=== PATIENT | female | born 1950 | race Caucasian/White ===

== ENCOUNTER 2017-12-14 18:27 | Inpatient (IN) ==
--- NOTE | 2017-12-14 18:50 | Emergency Department Note ---
Disposition Clinical Impression: Numbness on right side Disposition: Admitted As Inpatient Condition: Good Time of Disposition: 20:46 Neuro HPI - General Chief Complaint: ED Neuro Symptoms/Deficit Stated Complaint: "leaning to R side cant straighten up" Time Seen by Provider: 12/14/17 18:42 Source: patient Limitations: no limitations Nursing Notes Reviewed: Yes Vital Signs Reviewed: Yes - History of Present Illness HPI Narrative: 67-year-old female history of hypertension, diabetes presents the emergency department with for concern of right leg weakness and numbness. Patient arrived roughly at 1900. reports around 1730 patient attempted to ambulate and appeared to lean towards the right. Patient was complaining of some numbness on her right side. The last well-known reported by the was roughly 1430 when she was seen ambulating normally. The denies any dysarthria, slurred speech, facial paralysis or weakness. Patient did has no history of prior stroke. Patient denies any other associated symptoms such as headache, confusion, chest pain. Denies any previous fall. Denies any recent travel or rashes. Denies any blood in the stool, black tarry stool, hematemesis or hemoptysis. She patient has a pacemaker and follows with Dr. [place] cardiology. Onset of Symptoms Date: 12/14/17 Onset of Symptoms Time: 14:00 Symptom Onset Unknown: No Timing confirmed by: spouse Location: right leg History of same: No Quality: numbness Symptoms Improving: Yes On Anticoagulants: Yes (WARFARIN FOR AFIB) - Related Data Home Medications: Home Medications Medication Instructions Recorded Confirmed Albuterol Sulfate [Albuterol 2 puff IH Q4H PRN 12/14/17 12/14/17 Inhaler] Clopidogrel [Plavix] 75 mg PO DAILY 12/14/17 12/14/17 Glimepiride [Amaryl] 4 mg PO BID 12/14/17 12/14/17 Metoprolol [Lopressor] 25 mg PO BID 12/14/17 12/14/17 Omeprazole [PriLOSEC] 20 mg PO DAILY 12/14/17 12/14/17 Quetiapine Fumarate [Seroquel] 300 mg PO HS 12/14/17 12/14/17 Simvastatin [Zocor] 20 mg PO HS 12/14/17 12/14/17 SitaGLIPtin [Januvia] 100 mg PO DAILY 12/14/17 12/14/17 Trazodone HCl 100 mg PO HS 12/14/17 12/14/17 Trospium Chloride [Trospium 20 mg PO DAILY 12/14/17 12/14/17 Chloride] cloNIDine HCl [CloNIDine HCl] 0.1 mg PO DAILY 12/14/17 12/14/17 metFORMIN [Glucophage] 1,000 mg PO QAM 12/14/17 12/14/17 metFORMIN [Glucophage] 1,500 mg PO QPM 12/14/17 12/14/17 risperiDONE [Risperidone] 4 mg PO DAILY 12/14/17 12/14/17 Allergies/Adverse Reactions: Allergies Allergy/AdvReac Type Severity Reaction Status Date / Time aspirin Allergy See Verified 12/14/17 20:04 Comments codeine Allergy See Verified 12/14/17 20:04 Comments Penicillins Allergy Vomiting Verified 12/14/17 20:04 All systems ED: reviewed and negative except as stated. Review of Systems: As Per HPI Constitutional: Reports: weakness. Denies: fever, chills ENT ED: Denies: congestion Cardiovascular: Denies: chest pain, palpitations Respiratory: Denies: cough Gastrointestinal: Denies: abdominal pain, nausea, vomiting Genitourinary: Denies: urgency, dysuria Musculoskeletal: Denies: back pain, neck pain Integumentary: Denies: rash, abrasion Neurological: Reports: abnormal gait. Denies: headache, weakness Psychiatric: Denies: anxiety, depression Hematological/Lymphatic: Denies: easy bleeding Past Medical History - Past Medical History Attestation: Yes The following information was validated with the patient. Source: patient, obtained from family Medical history: Reports: diabetes, hyperlipidemia, hypertension Psychiatric history: Reports: no psych history - Social History Smoking Status: Never smoker Smokeless Tobacco Status: No Alcohol use: Reports: none Drug use: Reports: none Physical Exam - General Limitations: no limitations General appearance: alert, in no apparent distress - Head Head exam: atraumatic, normocephalic, normal inspection - Eye Eye exam: Present: normal appearance, PERRL, EOMI - ENT ENT exam: normal exam, normal oropharynx, mucous membranes moist - Neck Neck exam: Present: normal inspection, full ROM, trachea midline - Chest Chest inspection: Present: normal inspection, symmetric chest wall rise - Respiratory Respiratory exam: Present: normal lung sounds bilaterally. Absent: respiratory distress, wheezes - Cardiovascular Cardiovascular exam: Present: regular rate, normal rhythm, normal heart sounds - Abdominal Exam Abdominal exam: Present: soft, Non-Tender. Absent: tenderness, distention, guarding, rebound, rigidity - Extremities Exam Extremities exam: Present: normal inspection, full ROM, normal capillary refill. Absent: tenderness, pedal edema - Expanded Lower Extremity Exam Hip/Pelvis exam: Present: normal inspection, full ROM Upper leg exam: Present: normal inspection, full ROM Knee exam: Present: normal inspection, full ROM Lower leg exam: Present: normal inspection, full ROM Ankle exam: Present: normal inspection, full ROM Foot/toe exam: Present: normal inspection, full ROM Neurovascular/Tendon exam: Absent: motor deficit, sensory deficit, tendon deficit - Back Exam Back exam: Present: normal inspection, full ROM. Absent: tenderness, vertebral tenderness - Neurological Exam Neurological exam: Present: alert, oriented X3, CN II-XII intact - Expanded Neurological Exam Patient oriented to: Present: person, place, time Cranial nerves: EOM function (II, III, IV, ): Normal, facial sensation (V): Normal, facial palsy (VII): Normal, gag reflex (IX): Normal, spinal accessory function (XI): Normal, tongue deviation (XII): Normal Cerebellar function: heel to brian: Normal Motor strength - LUE: 5/5 Motor strength - RUE: 5/5 Motor strength - LLE: 5/5 Motor strength - RLE: 5/5 Upper motor neuron exam: luciana neglect: Absent bilaterally, pronator drift: Absent bilaterally Sensory exam upper extremity: light touch: Normal Sensory exam lower extremity: light touch: Normal - Psychiatric Psychiatric exam: Present: normal affect, normal mood - Skin Skin exam: Present: warm, dry, intact, normal color. Absent: rash, cyanosis, diaphoresis Course Course Narrative: 67-year-old female presents with right sided numbness and reported weakness. Patient was unable to ambulate like she normally does. Initially was told by last well-known 1730 which was within 3 hours of arrival. At that time stroke alert was initiated and patient was immediately sent to CT scanner for imaging. Further history from the states last well-known was roughly 1430. On arrival back to the emergency department a full neural examination was performed on the patient. She had sensory deficit on the right side but no motor. No drift. Patient denies garbled or slurred speech. NIH was 1. Labs in further imaging pending. - Reevaluation(s) Reevaluation #1: Given the patient's comorbidities of hypertension diabetes and atrial fibrillation on Coumadin will admit the patient for further TIA CVA workup. Patient reports nausea with aspirin will give her full dose aspirin with Zofran and continue to monitor. Patient accepted for admission. Impression is right side numbness. Review for labs she has some baseline anemia. She denies any active bleeding such as bloody stool, lack tarry stool, hematemesis or hemoptysis. Troponin less than 0.03. Her INR is 1.2. Time: 20:48 - Consultations Consultation #1: [facility] called regarding the CT of the head. No acute hemorrhagic stroke. Time: 19:03 Consultation #2: Spoke with on-call hospitalist gil Nathan to admit for TIA/CVA workup with right numbness. No further orders at this time Time: 20:44 Vital Signs Temperature 98.2 F 12/14/17 18:29 Pulse Rate 94 12/14/17 18:29 Respiratory Rate 18 12/14/17 18:29 Blood Pressure 105/66 12/14/17 18:29 O2 Sat by Pulse Oximetry 93 12/14/17 18:29 Temperature 98.2 F 12/14/17 18:29 Pulse Rate 94 12/14/17 18:29 Respiratory Rate 14 12/14/17 22:24 Blood Pressure 138/76 12/14/17 22:24 O2 Sat by Pulse Oximetry 93 12/14/17 18:29 Oxygen Delivery Oxygen Delivery Room Air Neuro Symptoms/Deficit - MDM Narrative Medical decision making narrative: Patient was discussed with my attending physician who agrees with ED management and final disposition. They independently evaluated the patient. Please refer to their attestation to this encounter for additional information. This note was generated by giddy voice recognition software and as a result grammatical or spelling errors may occur using this program. - Medical Records Medical records reviewed: Yes I reviewed the patient's medical records. - Lab Data Lab results reviewed: Yes I reviewed the patient's lab results. Result diagrams: 12/14/17 18:31 12/14/17 18:31 Lab Results 12/14/17 12/14/1712/14/18 Range/Units 18:31 18:31 18:31 WBC 4.6 (4.3-11.1) K/mcL RBC 3.60 L (3.82-4.97) M/mcL Hgb 9.8 L (11.5-15.4) g/dL Hct 32.6 L (35.3-44.9) % MCV 90.6 (83.0-100.0) fL MCH 27.2 L (28.0-33.3) pg MCHC 30.1 L (31.6-35.5) g/dL RDW 15.9 H (11.5-14.5) % Plt Count 137 L (140-400) K/mcL MPV 10.6 (9.4-12.4) fL Immature Gran % 0.2 (0-4) % Seg Neutrophils % 67.0 % Lymphocytes % 20.9 % Monocytes % 9.7 % Eosinophils % 1.5 % Basophils % 0.7 % Neutrophils # 3.1 (1.6-8.9) K/mcL Lymphocytes # 1.0 (0.6-4.6) K/mcL Monocytes # 0.4 (0.0-1.3) K/mcL Eosinophils # 0.1 (0.0-0.6) K/mcL Basophils # 0.0 (0.0-0.2) K/mcL Nucleated RBCs/100 WBC 0.4 H (0) /100 WBC PT 13.1 H (9.4-12.1) Seconds INR 1.2 APTT 27.7 (26.0-36.0) Seconds Sodium 140 (136-145) mEq/L Potassium 4.4 (3.5-5.1) mEq/L Chloride 106 (98-107) mEq/L Carbon Dioxide 23 (23-29) mEq/L BUN 9 (8-23) mg/dL Creatinine 0.56 L (0.60-1.20) mg/dL Est GFR ( Amer) > 60 (> 60) Est GFR (Non-Af Amer) > 60 (> 60) BUN/Creatinine Ratio 16 (6-26) Glucose 197 H (70-105) mg/dL POC Glucose (70-99) mg/dL Calculated Osmolality 294 (280-300) Calcium 9.3 (8.6-10.3) mg/dL Troponin I < 0.03 (< 0.04) ng/mL 12/14/17 Range/Units 18:37 WBC (4.3-11.1) K/mcL RBC (3.82-4.97) M/mcL Hgb (11.5-15.4) g/dL Hct (35.3-44.9) % MCV (83.0-100.0) fL MCH (28.0-33.3) pg MCHC (31.6-35.5) g/dL RDW (11.5-14.5) % Plt Count (140-400) K/mcL MPV (9.4-12.4) fL Immature Gran % (0-4) % Seg Neutrophils % % Lymphocytes % % Monocytes % % Eosinophils % % Basophils % % Neutrophils # (1.6-8.9) K/mcL Lymphocytes # (0.6-4.6) K/mcL Monocytes # (0.0-1.3) K/mcL Eosinophils # (0.0-0.6) K/mcL Basophils # (0.0-0.2) K/mcL Nucleated RBCs/100 WBC (0) /100 WBC PT (9.4-12.1) Seconds INR APTT (26.0-36.0) Seconds Sodium (136-145) mEq/L Potassium (3.5-5.1) mEq/L Chloride (98-107) mEq/L Carbon Dioxide (23-29) mEq/L BUN (8-23) mg/dL Creatinine (0.60-1.20) mg/dL Est GFR ( Amer) (> 60) Est GFR (Non-Af Amer) (> 60) BUN/Creatinine Ratio (6-26) Glucose (70-105) mg/dL POC Glucose 198 H (70-99) mg/dL Calculated Osmolality (280-300) Calcium (8.6-10.3) mg/dL Troponin I (< 0.04) ng/mL - Radiology Data Radiology results reviewed: Yes I reviewed the patient's radiology results. Head CT 12/14/17 18:42 IMPRESSION: No acute intracranial abnormality. Mild chronic microvascular ischemic changes and age appropriate global cerebral atrophy. D/ / Sancho Cutler MD / Sancho Cutler MD Interpreting Provider: Sancho Cutler MD Chest X-Ray 12/14/17 18:43 IMPRESSION: No acute process. Stable cardiomegaly D/ / Brayan Rahman MD / Brayan Rahman MD Interpreting Provider: Brayan Rahman MD - EKG Data EKG attestation: Yes I reviewed and interpreted this EKG. EKG results narrative: EKG performed 1900 normal sinus rhythm 93 beats per minute, left bundle branch block QRS 129, no Sgarbossa criteria. Compared to prior EKG performed 2013 shows similar consistent findings of left bundle branch block. No acute ischemic changes seen. NIH Stroke Scale - Level of Consciousness LOC: Alert - LOC Questions LOC Questions: Answers both correctly - LOC Commands LOC Commands: Performs both correctly - Best Gaze Best Gaze: Normal - Visual Visual: No visual loss - Facial Palsy Facial Palsy: Normal - Motor Arms Motor Arm-Left: No drift for 10 seconds Motor Arm-Right: No drift for 10 seconds - Motor Legs Motor Leg-Left: No drift for 5 seconds Motor Leg-Right: No drift for 5 seconds - Limb Ataxia Limb Ataxia: Absent of affected limb too weak to perform exam - Sensory Sensory: Mild to moderate loss, "not as sharp" - Best Language Best Language: No aphasia - Dysarthria Dysarthria: Normal - Extinction and Inattention Extinction and Inattention: Normal - NIHSS Total Score NIHSS Total Score: 1 TPA Checklist - Source Information Source: Family - Eligibilty for IV tPA 1. LKW equal to or less than 4.5 hours be before treatment: No 3. Age 18 years or older: Yes Attestation Statement - Attestation Attestation: I, Patrick Montiel, examined this patient and my medical decision-making was reviewed with the [employer] TECHNICIAN/PA/Advanced Practice Nurse/Resident Physician. I agree with the documented findings, disposition and treatment plan as described except to the extent set forth below. 67-year-old female presents to emergency department for possible CVA. states the patient had weakness of the right side as she is listing to the right with ambulation. Patient also had slurred speech initial evaluation the emergency department. states her last known normal was at 1430 as she was getting up to get ready for restorationism. Patient denies recent trauma or changes in her medications. No other fevers, chills, chest pain, shortness of breath, palpitations. CT of the head was negative for acute fracture or intracranial hemorrhage. Patient has an NIH of 2 for subjective right-sided paresthesias and slurred speech. Patient does state that she has slurred speech occasionally with her medications. Patient is outside of the window for TPA and takes Plavix. Patient will be admitted to the hospitalist for further care and evaluation of her possible CVA versus TIA.
[2017-12-14 19:00] LABS: Basophils % 0.7 %; Eosinophils # 0.1 K/mcL (0.0-0.6); Eosinophils % 1.5 %; Hematocrit 32.6 % (35.3-44.9); Hemoglobin 9.8 g/dL (11.5-15.4); Immature Granulocytes % 0.2 % (0-4); Lymphocytes % 20.9 %; Mean Corpuscular HGB Conc 30.1 g/dL (31.6-35.5); Mean Corpuscular Hemoglobin 27.2 pg (28.0-33.3); Mean Corpuscular Volume 90.6 fL (83.0-100.0); Mean Platelet Volume 10.6 fL (9.4-12.4); Monocytes # 0.4 K/mcL (0.0-1.3); Monocytes % 9.7 %; Neutrophils # 3.1 K/mcL (1.6-8.9); Nucleated Red Blood Cells 0.4 /100 WBC (0); Platelet Count 137 K/mcL (140-400); Red Cell Distribution Width 15.9 % (11.5-14.5)
[2017-12-14 19:04] LABS: INR 1.2; Prothrombin Time 13.1 Seconds (9.4-12.1)
[2017-12-14 19:07] LABS: Activated Partial Thrombo Time 27.7 Seconds (26.0-36.0)
[2017-12-14 19:23] LABS: BUN/Creatinine Ratio 16 (6-26); Blood Urea Nitrogen 9 mg/dL (8-23); Calcium 9.3 mg/dL (8.6-10.3); Carbon Dioxide 23 mEq/L (23-29); Chloride 106 mEq/L (98-107); Glucose 197 mg/dL (70-105); Osmolality,Calculated 294 (280-300); Potassium 4.4 mEq/L (3.5-5.1); Sodium 140 mEq/L (136-145); Troponin I < 0.03 ng/mL (< 0.04); eGFR For African Americans > 60 (> 60); eGFR For Non-African Americans > 60 (> 60)
[2017-12-14] MEDS ORDERED: Ondansetron ODT 4 MG TAB.RAPDIS SL ONE (19:51)
[2017-12-14] MEDS ORDERED: Aspirin 81 MG TAB.CHEW PO SCH (20:00)
[2017-12-14] MEDS ORDERED: Aspirin 81 MG TAB.CHEW PO STA (20:27)
--- NOTE | 2017-12-14 21:30 | Internal Med History&Physical ---
Date of Encounter: 12/14/17 Time of Encounter: 22:28 Internal Medicine - H&P: HPI Chief complaint: R side numbness Admitted From: Home Plans for Post Hospital Care: Home History of present illness: Ms. Isabel is a 67 year old female with PMH of HLD, DM, Morbid Obesity, COPD, HTN , Hx of ectopy but not Afib, non-obstructing CAD, last [facility] 2010 She was in her usual state of health till 530pm 12/14/17 when her noted she was leaning to the R when ambulating, the patient also complained of R UE and LE numbness. She said it felt like "her bowels went into her legs". She denies speech deficits, facial droop or paralysis, no tongue deviation. At time of review, her motor weakness had resolved but her RUE numbness persists. She presented outside of the window period to the ER. She received ASA with no adverse effects. She denies chest pain, difficulty breathing, leg swelling, orthopnea, PND. She denies any headaches, confusion, neck stiffness HEad CT done in the ER showed cerebral atrophy without evidence of acute infarct Past Med Surg Social Fam HX - Past Medical History Medical history: diabetes, hyperlipidemia, hypertension Psychiatric history: no psych history - Social History Smoking Status: Never smoker Smokeless Tobacco Status: No Alcohol use: none Drug use: none Internal Medicine - H&P: Meds Albuterol Sulfate [Albuterol Inhaler] 2 puff IH Q4H PRN 12/14/17 [History] Clopidogrel [Plavix] 75 mg PO DAILY 12/14/17 [History] Glimepiride [Amaryl] 4 mg PO BID 12/14/17 [History] Metoprolol [Lopressor] 25 mg PO BID 12/14/17 [History] Omeprazole [PriLOSEC] 20 mg PO DAILY 12/14/17 [History] Quetiapine Fumarate [Seroquel] 300 mg PO HS 12/14/17 [History] Simvastatin [Zocor] 20 mg PO HS 12/14/17 [History] SitaGLIPtin [Januvia] 100 mg PO DAILY 12/14/17 [History] Trazodone HCl 100 mg PO HS 12/14/17 [History] Trospium Chloride [Trospium Chloride] 20 mg PO DAILY 12/14/17 [History] cloNIDine HCl [CloNIDine HCl] 0.1 mg PO DAILY 12/14/17 [History] metFORMIN [Glucophage] 1,000 mg PO QAM 12/14/17 [History] metFORMIN [Glucophage] 1,500 mg PO QPM 12/14/17 [History] risperiDONE [Risperidone] 4 mg PO DAILY 12/14/17 [History] 3 Allergy/AdvReac Type Severity Reaction Status Date / Time aspirin Allergy See Verified 12/14/17 20:04 Comments codeine Allergy See Verified 12/14/17 20:04 Comments Penicillins Allergy Vomiting Verified 12/14/17 20:04 All Systems PM: A 10-system review of systems was performed and is negative for pertinent findings except as documented above in the HPI. - Constitutional Constitutional: no chills, no fever(s), no night sweats - EENT Eyes: no change in vision, no discharge, no pain, no photophobia Ears: no ear discharge, no ear pain, no tinnitus Nose, mouth and throat: no dysphagia, no nasal discharge, no neck pain, no sore throat - Cardiovascular Cardiovascular ROS IM: no chest pain, no diaphoresis, no dyspnea, no lightheadedness, no palpitations, no syncope - Respiratory Respiratory: no cough, no dyspnea, no wheezing, no excessive phlegm production - Gastrointestinal Gastrointestinal: no abdominal pain, no diarrhea, no hematemesis, no hematochezia, no melena, no nausea, no vomiting - Genitourinary Genitourinary: no change in urinary stream, no dysuria, no flank pain, no hematuria - Musculoskeletal Musculoskeletal ROS IM: no numbness, no tingling - Integumentary Integumentary IM: no rash, no unusual bruising - Neurological Neurological ROS: as per HPI - Hematologic/Lymphatic Hematologic/Lymphatic: no easy bruising - Constitutional Vitals: Temp Pulse Resp BP Pulse Ox 98.2 F 94 18 105/66 93 12/14/17 18:29 12/14/17 18:29 12/14/17 18:29 12/14/17 18:29 12/14/17 18:29 General appearance: Present: A&O X 3, morbidly obese, no acute distress - Head Head exam: Present: atraumatic, normocephalic - Eye Eye exam: Present: PERRL, conjuntiva pink, sclera anicteric Pupils: Present: PERRL - Neck Neck exam general surgery: Present: supple, trachea midline. Absent: lymphadenopathy - Respiratory Respiratory exam: Present: CTAB. Absent: accessory muscle use, rales, rhonchi, wheezes - Cardiovascular Cardiovascular exam: Present: RRR, +S1, +S2. Absent: diastolic murmur, gallop, rubs, systolic murmur - GI/Abdominal GI/Abdominal exam: Present: normal bowel sounds, soft, no peritoneal signs. Absent: distended, tenderness - Extremities Exam Extremities exam: Present: warm, radial pulses palpable and symmetrical. Absent : calf tenderness, cyanotic, pedal edema - Neurological Exam Neurological exam: Present: alert, motor sensory deficit (Numbness on RUE. ), normal gait, oriented X3, strengths equal and symetr throughout - Skin Skin exam: Present: dry, intact Internal Med - H&P Results - Labs CBC & Chem 7: 12/14/17 18:31 12/14/17 18:31 Labs: Short CBC 12/14/17 Range/Units 18:31 WBC 4.6 (4.3-11.1) K/mcL Hgb 9.8 L (11.5-15.4) g/dL Hct 32.6 L (35.3-44.9) % Plt Count 137 L (140-400) K/mcL Neutrophils # 3.1 (1.6-8.9) K/mcL BMP 12/14/17 18:31 Sodium 140 Potassium 4.4 Chloride 106 Carbon Dioxide 23 BUN 9 Creatinine 0.56 L Glucose 197 H Calcium 9.3 Cardiac Enzymes 12/14/17 Range/Units 18:31 Troponin I < 0.03 (< 0.04) ng/mL - Impressions ITS Impressions Head CT 12/14/17 18:42 IMPRESSION: No acute intracranial abnormality. Mild chronic microvascular ischemic changes and age appropriate global cerebral atrophy. D/ / Sancho Cutler MD / Sancho Cutler MD Interpreting Provider: Sancho Cutler MD Chest X-Ray 12/14/17 18:43 IMPRESSION: No acute process. Stable cardiomegaly D/ / Brayan Rahman MD / Brayan Rahman MD Interpreting Provider: Brayan Rahman MD - Assessment and plan (1) CVA (cerebral vascular accident) Current Visit: Yes Status: Suspected Assessment and plan: Suspected Patient with residual RUE numbness NIHSS 1 When symptoms started she had motor weakness of her RUE and RLE She has no speech deficits, facial paralysis Continue ASA daily, patient is already on plavix, continue same Change simvastatin to lipitor Check lipid panel a.m Check A1C Neuro eval Obtain Brain MRI and carotid doppler USS PT/OT eval Fall precautions Qualifiers: CVA mechanism: unspecified Qualified Code(s): I63.9 - Cerebral infarction, unspecified (2) HTN (hypertension) Current Visit: Yes Status: Chronic Assessment and plan: Continue home meds Qualifiers: Hypertension type: essential hypertension Qualified Code(s): I10 - Essential (primary) hypertension (3) COPD (chronic obstructive pulmonary disease) Current Visit: Yes Status: Chronic Assessment and plan: CTAB NO evidence of exacerbation May possibly have MAKSIM Continue home MDIs Qualifiers: COPD type: unspecified COPD Qualified Code(s): J44.9 - Chronic obstructive pulmonary disease, unspecified (4) Diabetes mellitus Current Visit: Yes Status: Chronic Assessment and plan: Hold home po meds Start on basal and correctional insulin Check A1C ADA diet FS ACHS Qualifiers: Diabetes mellitus type: type 2 Diabetes mellitus long term care pharmacist insulin use: without prison use Diabetes mellitus complication status: without complication Qualified Code(s): E11.9 - Type 2 diabetes mellitus without complications (5) Obesity Current Visit: Yes Status: Chronic Assessment and plan: Lifestyle modification Qualifiers: Obesity type: unspecified obesity type Obesity classification: adult class 3 (BMI >= 40) Serious obesity comorbidity presence: without serious comorbidity Body mass index: BMI 40.0-44.9 Qualified Code(s): E66.9 - Obesity, unspecified; Z68.41 - Body mass index (BMI) 40.0-44.9, adult; Z68.41 - Body mass index (BMI) 40.0-44.9, adult; Z68.41 - Body mass index (BMI) 40.0-44.9 , adult; Z68.41 - Body mass index (BMI) 40.0-44.9, adult - Time Spent With Patient Total time spent is greater than 50% in coordination of care (as documented) at patient's floor/unit and/or counseling patient:
[2017-12-14] MEDS ORDERED: Naloxone 0.4 MG/ML INJ IVP PRN (21:32)
[2017-12-14] MEDS ORDERED: Dextrose Gel 15 GM/37.5 ML TUBE PO PRN ×2 (21:43)
[2017-12-14] MEDS ORDERED: *HR* Dextrose 50 % in Water (Syg) 50 ML SYRINGE IVP PRN (21:43)
[2017-12-14] MEDS ORDERED: D5% in Water 1,000 ML IVC PRN (21:43)
[2017-12-14] MEDS: Insulin DETEMIR 100 UNIT/ML X5UNITS SQ SCH (23:40)
[2017-12-14] MEDS: *HR* Heparin 5,000 UNIT/ML VIAL SQ SCH (23:40)
[2017-12-15] MEDS ORDERED: risperiDONE 1 MG TABLET PO ONE (01:23)
[2017-12-15] MEDS ORDERED: traZODone 50 MG TABLET PO ONE (01:25)
[2017-12-15 05:21] LABS: Basophils % 0.7 %; Eosinophils # 0.1 K/mcL (0.0-0.6); Eosinophils % 1.8 %; Hematocrit 30.9 % (35.3-44.9); Hemoglobin 9.3 g/dL (11.5-15.4); Immature Granulocytes % 0.2 % (0-4); Lymphocytes # 1.5 K/mcL (0.6-4.6); Lymphocytes % 33.7 %; Mean Corpuscular HGB Conc 30.1 g/dL (31.6-35.5); Mean Corpuscular Hemoglobin 27.2 pg (28.0-33.3); Mean Corpuscular Volume 90.4 fL (83.0-100.0); Mean Platelet Volume 10.7 fL (9.4-12.4); Monocytes # 0.4 K/mcL (0.0-1.3); Neutrophils # 2.5 K/mcL (1.6-8.9); Platelet Count 116 K/mcL (140-400); Red Blood Count 3.42 M/mcL (3.82-4.97); Red Cell Distribution Width 16.4 % (11.5-14.5); Segmented Neutrophils % 54.6 %
[2017-12-15 05:39] LABS: BUN/Creatinine Ratio 25 (6-26); Blood Urea Nitrogen 10 mg/dL (8-23); Carbon Dioxide 27 mEq/L (23-29); Chloride 105 mEq/L (98-107); Chol/HDL Ratio 4.3 (0-4.9); Cholesterol 111 mg/dL (< 200); Glucose 100 mg/dL (70-105); HDL Cholesterol 26 mg/dL (40-59); LDL Cholesterol,Calculated 27 mg/dL (0-99); Osmolality,Calculated 291 (280-300); Potassium 3.9 mEq/L (3.5-5.1); Sodium 141 mEq/L (136-145); Triglycerides 289 mg/dL (< 150); eGFR For African Americans > 60 (> 60); eGFR For Non-African Americans > 60 (> 60)
[2017-12-15] MEDS: *HR* Heparin 5,000 UNIT/ML VIAL SQ SCH ×3 (06:23→20:37)
[2017-12-15] MEDS: Aspirin 81 MG TAB.CHEW PO SCH ×2 (07:54→13:51)
[2017-12-15] MEDS: Insulin LISPRO 300 UNITS/3 ML VIAL SQ SCH ×3 (07:54→17:36)
[2017-12-15] MEDS: cloNIDine HCl 0.1 MG TABLET PO SCH (07:54)
[2017-12-15 09:07] LABS: Estimated Average Glucose 212 mg/dl
--- NOTE | 2017-12-15 13:23 | Neurology - Consult Note ---
Date of Encounter: 12/15/17 Time of Encounter: 07:30 Assessment and Plan (1) Weakness Current Visit: Yes Status: Acute This patient was admitted with this nonspecific weakness initially it was reported on the right side according to the patient as well as on the left side and left upper arm but apparently having difficulty with her gait and balance and according to her is been going on for quite some time, Ready had an MRI of the brain that was negative for any acute ischemic stroke or any other abnormality On examination I did not see any focal motor weakness she did have some generalized weakness but I did notice that she has difficulty with fine motor movements and mild stiffness at the same time she also has decreased facial expressions ( though not sure what her baseline is that this is the first encounter) Is a concern that her symptoms could be related to early parkinsonism due to the some abnormal features on her examination but again she did not have in all typical features off it I would recommend follow-up evaluation in the neurology clinic as an outpatient when she is more stable and back to her baseline and we could evaluate her for possibility of Parkinson disease Beside that I suggest checking for other metabolic abnormalities, like VIT B12 folate TSH, that may be causing or contributing to her symptoms also check for any underlying infection She would benefit from physical therapy evaluation perhaps a may need short- term rehabilitation (2) Numbness on right side Current Visit: Yes Status: Acute History of Present Illness HPI: Ms. Isabel is a 67 year old female with PMH of HLD, DM, Morbid Obesity, COPD, HTN , CAD, presented because of the weakness and difficulty with ambulation she describing it of the right-sided weakness started yesterday and she has noted that she been leaning towards one side she denies any fall or denies any difficulty with his speech though baseline she did have some difficulty with the walking and shuffles at times sometime she has tremors and noted to be stiffness in her whole body. He is also complaining of stiffness and numbness in the right upper extremity She denies chest pain, difficulty breathing, leg swelling, orthopnea, PND. She denies any headaches, confusion, neck stiffness HEad CT done in the ER showed cerebral atrophy without evidence of acute infarct Past Med Surg Social Fam HX - Past Medical History Medical history: diabetes, hyperlipidemia, hypertension Psychiatric history: no psych history - Past Surgical History Surgical History: appendectomy, cholecystectomy - Social History Smoking Status: Never smoker Smokeless Tobacco Status: No Alcohol use: none Drug use: none Medications and Allergies Albuterol Sulfate [Albuterol Inhaler] 2 puff IH Q4H PRN 12/14/17 [History] Clopidogrel [Plavix] 75 mg PO DAILY 12/14/17 [History] Glimepiride [Amaryl] 4 mg PO BID 12/14/17 [History] Metoprolol [Lopressor] 25 mg PO BID 12/14/17 [History] Omeprazole [PriLOSEC] 20 mg PO DAILY 12/14/17 [History] Quetiapine Fumarate [Seroquel] 300 mg PO HS 12/14/17 [History] Simvastatin [Zocor] 20 mg PO HS 12/14/17 [History] SitaGLIPtin [Januvia] 100 mg PO DAILY 12/14/17 [History] Trazodone HCl 100 mg PO HS 12/14/17 [History] Trospium Chloride [Trospium Chloride] 20 mg PO DAILY 12/14/17 [History] cloNIDine HCl [CloNIDine HCl] 0.1 mg PO DAILY 12/14/17 [History] metFORMIN [Glucophage] 1,000 mg PO QAM 12/14/17 [History] metFORMIN [Glucophage] 1,500 mg PO QPM 12/14/17 [History] risperiDONE [Risperidone] 4 mg PO DAILY 12/14/17 [History] 3 Allergy/AdvReac Type Severity Reaction Status Date / Time aspirin Allergy See Verified 12/14/17 20:04 Comments codeine Allergy See Verified 12/14/17 20:04 Comments Penicillins Allergy Vomiting Verified 12/14/17 20:04 All Systems: The remainder 10 point the systems were reviewed and are negative Physical Examination - Vital Signs Vital Signs: Initial Vital Signs Temp Pulse Resp BP Pulse Ox 98.2 F 94 18 105/66 93 12/14/17 18:29 12/14/17 18:29 12/14/17 18:29 12/14/17 18:29 12/14/17 18:29 - Constitutional General appearance: comfortable - Neurologic Sensorimotor examination: intact Detailed motor examination: grossly full strength in all extremities Motor examination - right side: 4/5: deltoids, biceps, triceps, wrist flexion, wrist extension, sample supervisor, hip flexors, tibialis Anterior, quadriceps, toe extension (EHL), plantarflexion Motor examination - left side: 4/5: deltoids, biceps, triceps, wrist flexion, wrist extension, hip flexors, sample supervisor, quadriceps, tibialis Anterior, toe extension (EHL), plantarflexion Detailed sensory examination: intact Reflex and gait examination: intact Reflexes: Biceps: 1+, Triceps: 1+, Brachioradialis: 1+, Patella: 1+, Achilles: 1 + Mental Status Examination: awake, alert, oriented to person, oriented to place, oriented to time, follows commands appropriately, answers questions appropriately, opens eyes to noxious stimulation, makes eye contact, follows simple commands, localizes noxious stimulation Cranial nerve examination: PERRL, EOMI, visual faulkner intact, no facial asymmetry is present, no dysarthria Cerebellar examination: no dysmetria (Patient did not have any focal motor neurological deficit but did have slight decrease in facial expressions mild cogwheeling and minimal shuffling when she is walking.) Results - Laboratory Findings CBC and BMP: 12/15/17 04:57 12/15/17 04:57 Abnormal lab findings: Abnormal lab results RBC 3.42 M/mcL (3.82-4.97) L 12/15/17 04:57 Hgb 9.3 g/dL (11.5-15.4) L 12/15/17 04:57 Hct 30.9 % (35.3-44.9) L 12/15/17 04:57 MCH 27.2 pg (28.0-33.3) L 12/15/17 04:57 MCHC 30.1 g/dL (31.6-35.5) L 12/15/17 04:57 RDW 16.4 % (11.5-14.5) H 12/15/17 04:57 Plt Count 116 K/mcL (140-400) L 12/15/17 04:57 Nucleated RBCs/100 WBC 0.4 /100 WBC (0) H 12/14/17 18:31 PT 13.1 Seconds (9.4-12.1) H 12/14/17 18:31 Creatinine 0.40 mg/dL (0.60-1.20) L 12/15/17 04:57 POC Glucose 284 mg/dL (70-99) H 12/15/17 11:34 Hemoglobin A1c 9.0 % (-5.6) H 12/15/17 04:57 Triglycerides 289 mg/dL (< 150) H 12/15/17 04:57 VLDL Cholesterol, Calc 58 mg/dL (< 31) H 12/15/17 04:57 HDL Cholesterol 26 mg/dL (40-59) L 12/15/17 04:57 - Diagnostic Findings Additional findings: MRI : No acute infarct or other acute intracranial process. Chronic type small vessel white matter ischemic changes and senescent changes. Consult Discharge Plan - Plan Referrals: Amy Walden MD [Primary Care Provider] -
--- NOTE | 2017-12-15 14:31 | Internal Med Progress Note ---
<Dung Garibay - Last Filed: 12/15/17 14:26> Date of Encounter: 12/15/17 Time of Encounter: 09:00 - Assessment and plan (1) CVA (cerebral vascular accident) Current Visit: Yes Status: Suspected Assessment and plan: CVA unlikely. CTA and MRI were negative for ischemic and hemorrhagic CVA. Qualifiers: CVA mechanism: unspecified Qualified Code(s): I63.9 - Cerebral infarction, unspecified (2) HTN (hypertension) Current Visit: Yes Status: Chronic Assessment and plan: Continue home meds Qualifiers: Hypertension type: essential hypertension Qualified Code(s): I10 - Essential (primary) hypertension (3) COPD (chronic obstructive pulmonary disease) Current Visit: Yes Status: Chronic Assessment and plan: Currently CTAB. do not believe in exacerbation. will continue to monitor. Qualifiers: COPD type: unspecified COPD Qualified Code(s): J44.9 - Chronic obstructive pulmonary disease, unspecified (4) Diabetes mellitus Current Visit: Yes Status: Chronic Assessment and plan: Home DM meds held, currently on SSI. Patient does not check BG at home. A1C 9.0. - May be a contributor to her symptoms Qualifiers: Diabetes mellitus type: type 2 Diabetes mellitus group home insulin use: without group home use Diabetes mellitus complication status: without complication Qualified Code(s): E11.9 - Type 2 diabetes mellitus without complications (5) Obesity Current Visit: Yes Status: Chronic Assessment and plan: Lifestyle modification. Recommended patient to have sleep study once d/c'ed. Qualifiers: Obesity type: unspecified obesity type Obesity classification: adult class 3 (BMI >= 40) Serious obesity comorbidity presence: without serious comorbidity Body mass index: BMI 40.0-44.9 Qualified Code(s): E66.9 - Obesity, unspecified; Z68.41 - Body mass index (BMI) 40.0-44.9, adult; Z68.41 - Body mass index (BMI) 40.0-44.9, adult; Z68.41 - Body mass index (BMI) 40.0-44.9 , adult; Z68.41 - Body mass index (BMI) 40.0-44.9, adult (6) Heart murmur, systolic Current Visit: Yes Status: Acute Assessment and plan: 3/6 systolic heart murmur at 2nd IC space R + L (7) DVT prophylaxis Current Visit: Yes Status: Acute Assessment and plan: heparin SQ continue - Time Spent With Patient Total time spent is greater than 50% in coordination of care (as documented) at patient's floor/unit and/or counseling patient: - Subjective Interval history: Ms Isabel is a 67 yo F w/ pmh of HTN, HLD, poorly controlled DM, possibly MAKSIM, morbid obesity, COPD, CAD presented with right UE and LE weakness and tingling that started while she was sitting and watching tv yesterday. Patient arrived to ED and was evaluated for CVA, MRI and CT head were both negative. She reports that most of her symptoms have resolved. She still report mild weakness on her right side. Patient denies visual loss, headache, lightheadness , CP, SOB, or recent leg swelling. Patient does admit to intermittent leg swelling, orthopnea, and occassional SOB. Patient denies PND. - Constitutional Vitals: Temp Pulse Resp BP Pulse Ox 97.3 F L 84 17 111/64 95 12/15/17 07:00 12/15/17 11:00 12/15/17 11:00 12/15/17 11:00 12/15/17 11:00 General appearance: Present: A&O X 3, morbidly obese, no acute distress - Head Head exam: Present: atraumatic, normocephalic - Respiratory Respiratory exam: Present: CTAB - Cardiovascular Cardiovascular exam: Present: RRR, systolic murmur (3/6 R + L systolic murmur 2nd IC) - GI/Abdominal GI/Abdominal exam: Present: soft. Absent: guarding, rebound, rigid - Extremities Exam Extremities exam: Absent: pedal edema - Neurological Exam Neurological exam: Present: alert, altered, CN II-XII intact, oriented X3, reflexes normal, no focal deficits, strengths equal and symetr throughout. Absent: motor sensory deficit, speech deficit Internal Medicine: Result - Labs CBC & Chem 7: 12/15/17 04:57 12/15/17 04:57 Labs: Short CBC 12/15/17 Range/Units 04:57 WBC 4.5 (4.3-11.1) K/mcL Hgb 9.3 L (11.5-15.4) g/dL Hct 30.9 L (35.3-44.9) % Plt Count 116 L (140-400) K/mcL Neutrophils # 2.5 (1.6-8.9) K/mcL BMP 12/15/17 04:57 Sodium 141 Potassium 3.9 Chloride 105 Carbon Dioxide 27 BUN 10 Creatinine 0.40 L Glucose 100 Calcium 9.0 - ABG Interpretation ABG results: PT/INR, D-dimer PT 13.1 Seconds (9.4-12.1) H 12/14/17 18:31 - Impressions Impressions Brain MRI 12/15/17 21:24 IMPRESSION: No acute infarct or other acute intracranial process. Chronic type small vessel white matter ischemic changes and senescent changes. D/ / Brayan Hathaway MD / Brayan Hathaway MD Interpreting Provider: Brayan Hathaway MD Consult Discharge Plan - Plan Referrals: Amy Walden MD [Primary Care Provider] - <John Bowen - Last Filed: 12/15/17 16:59> Date of Encounter: 12/15/17 - Assessment and plan (1) CVA (cerebral vascular accident) Current Visit: Yes Status: Suspected Qualifiers: CVA mechanism: unspecified Qualified Code(s): I63.9 - Cerebral infarction, unspecified (2) HTN (hypertension) Current Visit: Yes Status: Chronic Qualifiers: Hypertension type: essential hypertension Qualified Code(s): I10 - Essential (primary) hypertension (3) COPD (chronic obstructive pulmonary disease) Current Visit: Yes Status: Chronic Qualifiers: COPD type: unspecified COPD Qualified Code(s): J44.9 - Chronic obstructive pulmonary disease, unspecified (4) Diabetes mellitus Current Visit: Yes Status: Chronic Qualifiers: Diabetes mellitus type: type 2 Diabetes mellitus group home insulin use: without terminal make up operator use Diabetes mellitus complication status: without complication Qualified Code(s): E11.9 - Type 2 diabetes mellitus without complications (5) Obesity Current Visit: Yes Status: Chronic Qualifiers: Obesity type: unspecified obesity type Obesity classification: adult class 3 (BMI >= 40) Serious obesity comorbidity presence: without serious comorbidity Body mass index: BMI 40.0-44.9 Qualified Code(s): E66.9 - Obesity, unspecified; Z68.41 - Body mass index (BMI) 40.0-44.9, adult; Z68.41 - Body mass index (BMI) 40.0-44.9, adult; Z68.41 - Body mass index (BMI) 40.0-44.9 , adult; Z68.41 - Body mass index (BMI) 40.0-44.9, adult (6) Heart murmur, systolic Current Visit: Yes Status: Acute (7) DVT prophylaxis Current Visit: Yes Status: Acute - Time Spent With Patient Total time spent is greater than 50% in coordination of care (as documented) at patient's floor/unit and/or counseling patient: - Constitutional Vitals: Temp Pulse Resp BP Pulse Ox 97.8 F 88 18 115/57 97 12/15/17 16:00 12/15/17 16:00 12/15/17 16:00 12/15/17 16:00 12/15/17 16:00 Internal Medicine: Result - Labs CBC & Chem 7: 12/15/17 04:57 12/15/17 04:57 Labs: Short CBC 12/15/17 Range/Units 04:57 WBC 4.5 (4.3-11.1) K/mcL Hgb 9.3 L (11.5-15.4) g/dL Hct 30.9 L (35.3-44.9) % Plt Count 116 L (140-400) K/mcL Neutrophils # 2.5 (1.6-8.9) K/mcL BMP 12/15/17 04:57 Sodium 141 Potassium 3.9 Chloride 105 Carbon Dioxide 27 BUN 10 Creatinine 0.40 L Glucose 100 Calcium 9.0 - ABG Interpretation ABG results: PT/INR, D-dimer PT 13.1 Seconds (9.4-12.1) H 12/14/17 18:31 - Impressions Impressions Brain MRI 12/15/17 21:24 IMPRESSION: No acute infarct or other acute intracranial process. Chronic type small vessel white matter ischemic changes and senescent changes. D/ / Brayan Hathaway MD / Brayan Hathaway MD Interpreting Provider: Brayan Hathaway MD - Attending Attestation I performed an independent interview and exam of this patient. I agree with the findings, assessment, and plan of Dr. Garibay, internal medicine resident. His note reflects our discussion and my input. Imaging did not support an acute ischemic CVA. Patient is improved. Does have acute hypoxemic arrest or failure which I suspect may be an acute recognition of chronic hypoxemic wrists are a failure due to COPD and possible obesity hypoventilation syndrome. He is never been evaluated for sleep apnea. Do not suspect acute congestive heart failure. Do not suspect acute infection. I do not suspect she has a COPD exacerbation. We will have physical therapy and occupational therapy evaluate her. Neurology input is noted and appreciated. Echocardiogram is still pending. All else as outlined above.
[2017-12-15 14:40] LABS: Folate > 22.3 ng/mL (3.0-16.0); Vitamin B12 505 pg/mL (250-1100)
[2017-12-15] MEDS: traZODone 50 MG TABLET PO SCH (20:33)
[2017-12-15] MEDS: risperiDONE 1 MG TABLET PO SCH (20:33)
[2017-12-15] MEDS: Insulin DETEMIR 100 UNIT/ML X5UNITS SQ SCH (20:34)
[2017-12-15] MEDS ORDERED: Insulin LISPRO 300 UNITS/3 ML VIAL SQ SCH (21:00)
[2017-12-16] MEDS ORDERED: *HR* Metoprolol 5 MG/5 ML VIAL IVP ONE (02:53)
[2017-12-16] MEDS: *HR* Heparin 5,000 UNIT/ML VIAL SQ SCH ×4 (04:21→21:07)
[2017-12-16] MEDS ORDERED: Acetaminophen 325 MG TABLET PO ONE (04:29)
[2017-12-16 05:01] LABS: Hematocrit 29.2 % (35.3-44.9); Hemoglobin 8.9 g/dL (11.5-15.4); Mean Corpuscular HGB Conc 30.5 g/dL (31.6-35.5); Mean Corpuscular Hemoglobin 27.4 pg (28.0-33.3); Mean Corpuscular Volume 89.8 fL (83.0-100.0); Platelet Count 113 K/mcL (140-400); Red Blood Count 3.25 M/mcL (3.82-4.97); Red Cell Distribution Width 15.9 % (11.5-14.5)
[2017-12-16 05:24] LABS: BUN/Creatinine Ratio 26 (6-26); Blood Urea Nitrogen 12 mg/dL (8-23); Calcium 9.2 mg/dL (8.6-10.3); Carbon Dioxide 28 mEq/L (23-29); Chloride 103 mEq/L (98-107); Glucose 169 mg/dL (70-105); Osmolality,Calculated 294 (280-300); Potassium 3.9 mEq/L (3.5-5.1); Sodium 140 mEq/L (136-145); eGFR For African Americans > 60 (> 60); eGFR For Non-African Americans > 60 (> 60)
[2017-12-16] MEDS: Aspirin 81 MG TAB.CHEW PO SCH (08:44)
[2017-12-16] MEDS: cloNIDine HCl 0.1 MG TABLET PO SCH (08:45)
[2017-12-16] MEDS: Insulin LISPRO 300 UNITS/3 ML VIAL SQ SCH ×4 (08:45→21:07)
--- NOTE | 2017-12-16 09:22 | Neurology Progress Note ---
Date of Encounter: 12/16/17 Time of Encounter: 07:20 Assessment and Plan (1) Weakness Current Visit: Yes Status: Acute No clinical sign of a stroke no evidence of any ischemic abnormality on MRI of the brain clinically she is a stable. Did have some difficulty with a gait and balance I suggest follow-up in neurology clinic as an outpatient to get a detailed neurological examination when she is back to normal to make sure there is no underlying neurological process. She did have a multiple risk factors for the stroke suggest to continue on antiplatelet therapy with aspirin Patient is okay to discharge from neurology standpoint (2) Numbness on right side Current Visit: Yes Status: Acute Subjective Interval history: P{t seen as f/u for weakness, no clinical sinus symptoms to be suggestive of stroke workup noted on her neurological examination . She has an history of poorly controlled DM, possibly MAKSIM, morbid obesity, COPD, CAD. MRI and CT head were both negative. She reports that most of her symptoms have resolved. She still report mild subjective weakness on her right side. Patient denies visual loss, headache, lightheadness, Objective - Constitutional Vitals: Temp Pulse Resp BP Pulse Ox 97.6 F 113 14 130/71 92 12/16/17 07:19 12/16/17 07:19 12/16/17 07:19 12/16/17 07:19 12/16/17 07:19 - Neurological Exam Sensorimotor examination: Present: intact Motor Examination: Present: grossly full strength in all extremities Motor examination - left side: 4/5: deltoids, biceps, triceps, wrist flexion, wrist extension, hip flexors, climate change risk assessor, quadriceps, tibialis Anterior, toe extension (EHL), plantarflexion Sensation intact: Present: intact Reflex and gait examination: intact Mental Status Examination: Present: awake, alert, oriented to person, oriented to place, oriented to time, follows commands appropriately, answers questions appropriately, opens eyes to noxious stimulation, makes eye contact, follows simple commands, localizes noxious stimulation Cranial nerve examination: Present: PERRL, EOMI, visual faulkner intact, no facial asymmetry is present, no dysarthria Cerebellar examination: Present: no dysmetria (Patient did not have any focal motor neurological deficit but did have slight decrease in facial expressions mild cogwheeling and minimal shuffling when she is walking.) Results - Laboratory Findings CBC and BMP: 12/16/17 04:05 12/16/17 04:05 Abnormal lab findings: Abnormal lab results RBC 3.25 M/mcL (3.82-4.97) L 12/16/17 04:05 Hgb 8.9 g/dL (11.5-15.4) L 12/16/17 04:05 Hct 29.2 % (35.3-44.9) L 12/16/17 04:05 MCH 27.4 pg (28.0-33.3) L 12/16/17 04:05 MCHC 30.5 g/dL (31.6-35.5) L 12/16/17 04:05 RDW 15.9 % (11.5-14.5) H 12/16/17 04:05 Plt Count 113 K/mcL (140-400) L 12/16/17 04:05 Nucleated RBCs/100 WBC 0.4 /100 WBC (0) H 12/14/17 18:31 PT 13.1 Seconds (9.4-12.1) H 12/14/17 18:31 Creatinine 0.46 mg/dL (0.60-1.20) L 12/16/17 04:05 Glucose 169 mg/dL (70-105) H 12/16/17 04:05 POC Glucose 166 mg/dL (70-99) H 12/16/17 07:21 Hemoglobin A1c 9.0 % (-5.6) H 12/15/17 04:57 Triglycerides 289 mg/dL (< 150) H 12/15/17 04:57 VLDL Cholesterol, Calc 58 mg/dL (< 31) H 12/15/17 04:57 HDL Cholesterol 26 mg/dL (40-59) L 12/15/17 04:57 Folate > 22.3 ng/mL (3.0-16.0) H 12/15/17 13:38 Consult Discharge Plan - Plan Referrals: Amy Walden MD [Primary Care Provider] -
--- NOTE | 2017-12-16 10:35 | Internal Med Progress Note ---
<Dung Garibay - Last Filed: 12/16/17 14:00> Date of Encounter: 12/16/17 Time of Encounter: 10:35 - Assessment and plan (1) COPD (chronic obstructive pulmonary disease) Current Visit: Yes Status: Chronic Assessment and plan: Currently CTAB. do not believe in exacerbation. will continue to monitor. Patient does not report hx of COPD, but does have respiratory treatment at home. - Patient has required more O2 overnight and this AM, ordered CT chest for further workup. No acute processes identified. Will not start abx at this time - still requiring O2 support 4.5 L, goal of 88-92%. (may require home O2, has not previously had home O2) - we will not qualify for O2 today, but will need one once d/c'ed. she is not near baseline. Earliest DC will be tomorrow Qualifiers: COPD type: unspecified COPD Qualified Code(s): J44.9 - Chronic obstructive pulmonary disease, unspecified (2) HTN (hypertension) Current Visit: Yes Status: Chronic Assessment and plan: Continue home meds Qualifiers: Hypertension type: essential hypertension Qualified Code(s): I10 - Essential (primary) hypertension (3) CVA (cerebral vascular accident) Current Visit: Yes Status: Ruled-out Assessment and plan: CVA unlikely. CTA and MRI were negative for ischemic and hemorrhagic CVA. Neurology was consulted. Qualifiers: CVA mechanism: unspecified Qualified Code(s): I63.9 - Cerebral infarction, unspecified (4) Diabetes mellitus Current Visit: Yes Status: Chronic Assessment and plan: Home DM meds held, currently on SSI. Patient does not check BG at home. A1C 9.0. - May be a contributor to her symptoms - Will need outpatient follow up Qualifiers: Diabetes mellitus type: type 2 Diabetes mellitus fpc insulin use: without fpc use Diabetes mellitus complication status: without complication Qualified Code(s): E11.9 - Type 2 diabetes mellitus without complications (5) Obesity Current Visit: Yes Status: Chronic Assessment and plan: Lifestyle modification. Recommended patient to have sleep study once d/c'ed. Qualifiers: Obesity type: unspecified obesity type Obesity classification: adult class 3 (BMI >= 40) Serious obesity comorbidity presence: without serious comorbidity Body mass index: BMI 40.0-44.9 Qualified Code(s): E66.9 - Obesity, unspecified; Z68.41 - Body mass index (BMI) 40.0-44.9, adult; Z68.41 - Body mass index (BMI) 40.0-44.9, adult; Z68.41 - Body mass index (BMI) 40.0-44.9 , adult; Z68.41 - Body mass index (BMI) 40.0-44.9, adult (6) Heart murmur, systolic Current Visit: Yes Status: Acute Assessment and plan: 3/ systolic heart murmur at 2nd IC space R + L (7) DVT prophylaxis Current Visit: Yes Status: Acute Assessment and plan: heparin SQ continue - Time Spent With Patient Total time spent is greater than 50% in coordination of care (as documented) at patient's floor/unit and/or counseling patient: - Subjective Interval history: Ms Isabel is a 67 yo F w/ pmh of HTN, HLD, poorly controlled DM, possibly MAKSIM, morbid obesity, COPD, CAD presented with right UE and LE weakness and tingling that started while she was sitting and watching tv yesterday. Patient arrived to ED and was evaluated for CVA, MRI and CT head were both negative. She reports that most of her symptoms have resolved. She still report mild weakness on her right side. Patient denies visual loss, headache, lightheadness , CP, SOB, or recent leg swelling. Patient does admit to intermittent leg swelling, orthopnea, and occassional SOB. Patient denies PND. - Constitutional Vitals: Temp Pulse Resp BP Pulse Ox 97.6 F 113 14 130/71 92 12/16/17 07:19 12/16/17 07:19 12/16/17 07:19 12/16/17 07:19 12/16/17 07:19 General appearance: Present: A&O X 3, morbidly obese, no acute distress - Respiratory Respiratory exam: Present: wheezes - Cardiovascular Cardiovascular exam: Present: RRR - Extremities Exam Extremities exam: Absent: pedal edema - Psychiatric Psychiatric exam: Present: normal affect, normal mood Internal Medicine: Result - Labs CBC & Chem 7: 12/16/17 04:05 12/16/17 04:05 Labs: Short CBC 12/16/17 Range/Units 04:05 WBC 4.7 (4.3-11.1) K/mcL Hgb 8.9 L (11.5-15.4) g/dL Hct 29.2 L (35.3-44.9) % Plt Count 113 L (140-400) K/mcL [facility] 12/16/17 04:05 Sodium 140 Potassium 3.9 Chloride 103 Carbon Dioxide 28 BUN 12 Creatinine 0.46 L Glucose 169 H Calcium 9.2 - ABG Interpretation ABG results: PT/INR, D-dimer PT 13.1 Seconds (9.4-12.1) H 12/14/17 18:31 - Impressions Impressions Echocardiogram 12/15/17 21:30 Impressions: LVEF 55-60%. Mild concentric left ventricular hypertrophy. Mild left ventricular diastolic dysfunction. Normal right ventricular structure and function. Mild pulmonic regurgitation. No pulmonary hypertension. There is no evidence of a PFO with agitated saline contrast. Left Ventricular Wall Motion: Rest Echo Findings All wall segments showed normal motion. Findings: Study Quality * Technically challenging due to body habitus. ECG Findings * Sinus rhythm with BBB. Left Ventricle * LVEF 55-60%. * Mild concentric left ventricular hypertrophy. * Normal LV chamber size. * Mild left ventricular diastolic dysfunction. Right Ventricle * Normal right ventricular structure and function. Left Atrium * Moderate-severely dilated left atrium. Right Atrium * Normal right atrial size. Mitral Valve * Normal mitral valve structure. * No mitral stenosis. * Mild mitral annular calcification * Trace mitral regurgitation. Aortic Valve * Aortic valve not well visualized. * No aortic stenosis. PV 2.6m/s, MG 16 mmHg, DI 0.5, RUBI 2.0 cm2 * No aortic regurgitation. Tricuspid Valve * Tricuspid valve not well visualized. * No tricuspid regurgitation. Pulmonic Valve * Pulmonic valve is not well visualized. * No pulmonic stenosis. * Mild pulmonic regurgitation. Pulmonary Artery * Pulmonary artery not well visualized. Aorta * Normally sized aortic root. Pericardium * There is no pericardial effusion present. Interatrial Septum * No evidence of PFO with agitated saline contrast. IVC * The IVC is not well evaluated. Consult Discharge Plan - Plan Referrals: Amy Walden MD [Primary Care Provider] - <John Bowen - Last Filed: 12/16/17 14:59> Date of Encounter: 12/16/17 - Assessment and plan (1) CVA (cerebral vascular accident) Current Visit: Yes Status: Ruled-out Qualifiers: CVA mechanism: unspecified Qualified Code(s): I63.9 - Cerebral infarction, unspecified (2) HTN (hypertension) Current Visit: Yes Status: Chronic Qualifiers: Hypertension type: essential hypertension Qualified Code(s): I10 - Essential (primary) hypertension (3) COPD (chronic obstructive pulmonary disease) Current Visit: Yes Status: Chronic Qualifiers: COPD type: unspecified COPD Qualified Code(s): J44.9 - Chronic obstructive pulmonary disease, unspecified (4) Diabetes mellitus Current Visit: Yes Status: Chronic Qualifiers: Diabetes mellitus type: type 2 Diabetes mellitus termite treater helper insulin use: without termite treater helper use Diabetes mellitus complication status: without complication Qualified Code(s): E11.9 - Type 2 diabetes mellitus without complications (5) Obesity Current Visit: Yes Status: Chronic Qualifiers: Obesity type: unspecified obesity type Obesity classification: adult class 3 (BMI >= 40) Serious obesity comorbidity presence: without serious comorbidity Body mass index: BMI 40.0-44.9 Qualified Code(s): E66.9 - Obesity, unspecified; Z68.41 - Body mass index (BMI) 40.0-44.9, adult; Z68.41 - Body mass index (BMI) 40.0-44.9, adult; Z68.41 - Body mass index (BMI) 40.0-44.9 , adult; Z68.41 - Body mass index (BMI) 40.0-44.9, adult (6) Heart murmur, systolic Current Visit: Yes Status: Acute (7) DVT prophylaxis Current Visit: Yes Status: Acute - Time Spent With Patient Total time spent is greater than 50% in coordination of care (as documented) at patient's floor/unit and/or counseling patient: - Constitutional Vitals: Temp Pulse Resp BP Pulse Ox 97.4 F L 77 16 103/69 94 12/16/17 11:46 12/16/17 11:46 12/16/17 11:46 12/16/17 11:46 12/16/17 11:46 Internal Medicine: Result - Labs CBC & Chem 7: 12/16/17 04:05 12/16/17 04:05 - ABG Interpretation ABG results: PT/INR, D-dimer PT 13.1 Seconds (9.4-12.1) H 12/14/17 18:31 - Attending Attestation I performed an independent interview and examine this patient. Agree with the findings, assessment, and plan of Dr. Garibay, internal medicine university internship. Patient still with a significant oxygen requirement. Suspect this is more of an acute recognition of her chronic need for oxygen. We will continue to titrate oxygen to maintain goal sats of 88-91%. We will walk her and work towards arranging for home oxygen. No obvious infection. No evidence of COPD exacerbation. I believe she has acute CHF. CT scan ruled out a pulmonary embolism. The formal testing including pulmonary function tests with DLCO and lung volumes to further assess for COPD and chronic lung disease. All else as outlined above.
[2017-12-16] MEDS ORDERED: Isovue-370 500 ML INFUS..BTL IV ONE (10:43)
--- NOTE | 2017-12-16 15:38 | Electrocardiograph Report ---
[place] [id number] Test Date: 2017-12-14 Pat Name: Alyssa Isabel Department: 103 Room: 2NE23 Gender: F [employer]: ADONAY : 1950 Requested By: Bret Watkins Order Number: [id number] Reading MD: Pauline Mendoza Measurements Intervals [place] Rate: 93 P: 53 TN: 170 QRS: -28 QRSD: 129 T: 122 QT: 381 QTc: 432 Interpretive Statements SINUS RHYTHM LEFT BUNDLE BRANCH BLOCK [120+ ms QRS DURATION, 80+ ms Q/S IN V1/V2, 85+ ms R IN I/aVL/V5/V6] Electronically Signed On 12-16-2017 15:36:42 EDT by Pauline Mendoza
[2017-12-16] MEDS: Insulin DETEMIR 100 UNIT/ML X5UNITS SQ SCH (21:06)
[2017-12-16] MEDS: risperiDONE 1 MG TABLET PO SCH (21:07)
[2017-12-16] MEDS: traZODone 50 MG TABLET PO SCH (21:07)
[2017-12-17 03:27] LABS: Hematocrit 30.4 % (35.3-44.9); Hemoglobin 9.1 g/dL (11.5-15.4); Mean Corpuscular HGB Conc 29.9 g/dL (31.6-35.5); Mean Corpuscular Hemoglobin 26.8 pg (28.0-33.3); Mean Corpuscular Volume 89.7 fL (83.0-100.0); Mean Platelet Volume 10.9 fL (9.4-12.4); Platelet Count 116 K/mcL (140-400); Red Blood Count 3.39 M/mcL (3.82-4.97); Red Cell Distribution Width 15.8 % (11.5-14.5)
[2017-12-17 03:42] LABS: BUN/Creatinine Ratio 24 (6-26); Blood Urea Nitrogen 11 mg/dL (8-23); Calcium 8.8 mg/dL (8.6-10.3); Carbon Dioxide 30 mEq/L (23-29); Chloride 105 mEq/L (98-107); Glucose 138 mg/dL (70-105); Osmolality,Calculated 296 (280-300); Potassium 3.9 mEq/L (3.5-5.1); Sodium 142 mEq/L (136-145); eGFR For African Americans > 60 (> 60); eGFR For Non-African Americans > 60 (> 60)
[2017-12-17] MEDS: *HR* Heparin 5,000 UNIT/ML VIAL SQ SCH ×3 (05:24→20:45)
--- NOTE | 2017-12-17 07:58 | Internal Med Progress Note ---
<John Bowen - Last Filed: 12/17/17 14:07> Date of Encounter: 12/17/17 - Assessment and plan (1) CVA (cerebral vascular accident) Current Visit: Yes Status: Ruled-out Qualifiers: CVA mechanism: unspecified Qualified Code(s): I63.9 - Cerebral infarction, unspecified (2) HTN (hypertension) Current Visit: Yes Status: Chronic Qualifiers: Hypertension type: essential hypertension Qualified Code(s): I10 - Essential (primary) hypertension (3) COPD (chronic obstructive pulmonary disease) Current Visit: Yes Status: Chronic Qualifiers: COPD type: unspecified COPD Qualified Code(s): J44.9 - Chronic obstructive pulmonary disease, unspecified (4) Diabetes mellitus Current Visit: Yes Status: Chronic Qualifiers: Diabetes mellitus type: type 2 Diabetes mellitus chcf insulin use: without marine oil terminal superintendent use Diabetes mellitus complication status: without complication Qualified Code(s): E11.9 - Type 2 diabetes mellitus without complications (5) Obesity Current Visit: Yes Status: Chronic Qualifiers: Obesity type: unspecified obesity type Obesity classification: adult class 3 (BMI >= 40) Serious obesity comorbidity presence: without serious comorbidity Body mass index: BMI 40.0-44.9 Qualified Code(s): E66.9 - Obesity, unspecified; Z68.41 - Body mass index (BMI) 40.0-44.9, adult; Z68.41 - Body mass index (BMI) 40.0-44.9, adult; Z68.41 - Body mass index (BMI) 40.0-44.9 , adult; Z68.41 - Body mass index (BMI) 40.0-44.9, adult (6) Heart murmur, systolic Current Visit: Yes Status: Acute (7) DVT prophylaxis Current Visit: Yes Status: Acute (8) Acute diastolic CHF (congestive heart failure) Current Visit: Yes Status: Acute - Time Spent With Patient Total time spent is greater than 50% in coordination of care (as documented) at patient's floor/unit and/or counseling patient: - Constitutional Vitals: Temp Pulse Resp BP Pulse Ox 97.3 F L 80 16 108/58 91 12/17/17 12:01 12/17/17 12:01 12/17/17 12:01 12/17/17 12:01 12/17/17 12:01 Internal Medicine: Result - Labs CBC & Chem 7: 12/17/17 02:32 12/17/17 02:32 Labs: Short CBC 12/17/17 Range/Units 02:32 WBC 4.8 (4.3-11.1) K/mcL Hgb 9.1 L (11.5-15.4) g/dL Hct 30.4 L (35.3-44.9) % Plt Count 116 L (140-400) K/mcL BMP 12/17/17 02:32 Sodium 142 Potassium 3.9 Chloride 105 Carbon Dioxide 30 H BUN 11 Creatinine 0.46 L Glucose 138 H Calcium 8.8 - ABG Interpretation ABG results: PT/INR, D-dimer PT 13.1 Seconds (9.4-12.1) H 12/14/17 18:31 Consult Discharge Plan - Plan Referrals: Amy Walden MD [Primary Care Provider] - Prescriptions: Alcohol Antiseptic Pads [Alcohol Pads] 1 each TP QID 30 Days #120 med..pad Blood Sugar Diagnostic [Glucose Test Strip] 1 each MC QID 30 Days #120 strip Blood-Glucose Meter [Accu-Chek Guide Monitor System] 1 each MC QID #1 each Lancets 1 each QID 30 Days #120 each - Attending Attestation I performed an independent interview and examine this patient. I agree with the findings, assessment, and plan of Dr. Stern, internal medicine resident. The above note reflects my input and our above discussion. Patient has improved. She has been weaned off oxygen this morning. She is weak and deconditioned and recommended to go to a rehabilitation facility. No obvious stroke was found on this admission. She does continue on aspirin for stroke prophylaxis. Patient otherwise remained hemodynamically stable. She will be discharged once arrangements are made. All else as outlined above. <Arnulfo Stern - Last Filed: 12/17/17 14:54> Date of Encounter: 12/17/17 Time of Encounter: 07:56 - Assessment and plan (1) Acute diastolic CHF (congestive heart failure) Current Visit: Yes Status: Acute Assessment and plan: Echo revealed LVEF 55-60% on 12/15/17 Patient with PND, crackles on exam, cardiac murmor, nocturnal cough, and CALVERT Continue Metoprolol Lasix 40mg IV, transition to PO once fluid balance improved Continue to monitor (2) COPD (chronic obstructive pulmonary disease) Current Visit: Yes Status: Chronic Assessment and plan: Not in exacerbation. Patient does not report hx of COPD, but does have respiratory treatment at home. Patient has required O2 overnight and this AM, CT chest negative for PE or acute processes Still requiring O2 support 2 L, goal of 88-92%. (may require home O2, has not previously had home O2) Will perform 6 minute walk test prior to d/c Will continue to monitor. Qualifiers: COPD type: unspecified COPD Qualified Code(s): J44.9 - Chronic obstructive pulmonary disease, unspecified (3) HTN (hypertension) Current Visit: Yes Status: Chronic Assessment and plan: Continue home meds Qualifiers: Hypertension type: essential hypertension Qualified Code(s): I10 - Essential (primary) hypertension (4) Heart murmur, systolic Current Visit: Yes Status: Acute Assessment and plan: 3/6 systolic heart murmur at 2nd IC space R + L (5) Diabetes mellitus Current Visit: Yes Status: Chronic Assessment and plan: Home DM meds held, currently on SSI. Patient does not check BG at home. A1C 9.0. May be a contributor to her symptoms Will need outpatient follow up Qualifiers: Diabetes mellitus type: type 2 Diabetes mellitus chcf insulin use: without marine oil terminal superintendent use Diabetes mellitus complication status: without complication Qualified Code(s): E11.9 - Type 2 diabetes mellitus without complications (6) Obesity Current Visit: Yes Status: Chronic Assessment and plan: BMI 40. Lifestyle modification. Recommended patient to have sleep study once d/ c'ed. Qualifiers: Obesity type: unspecified obesity type Obesity classification: adult class 3 (BMI >= 40) Serious obesity comorbidity presence: without serious comorbidity Body mass index: BMI 40.0-44.9 Qualified Code(s): E66.9 - Obesity, unspecified; Z68.41 - Body mass index (BMI) 40.0-44.9, adult; Z68.41 - Body mass index (BMI) 40.0-44.9, adult; Z68.41 - Body mass index (BMI) 40.0-44.9 , adult; Z68.41 - Body mass index (BMI) 40.0-44.9, adult (7) Ambulatory dysfunction Current Visit: Yes Status: Acute Assessment and plan: CVA unlikely. CTA and MRI were negative for ischemic and hemorrhagic CVA. Neurology was consulted, recommended outpatient follow-up in neurology clinic to get a detailed neurological examination when she is back to normal to make sure there is no underlying neurological process. She did have a multiple risk factors for the stroke suggest to continue on antiplatelet therapy with aspirin. Rx written for a rolling walker. PT/OT recommends Inpatient Rehab/Swing Bed upon discharge. (8) DVT prophylaxis Current Visit: Yes Status: Acute Assessment and plan: Heparin SubQ - Time Spent With Patient Total time spent is greater than 50% in coordination of care (as documented) at patient's floor/unit and/or counseling patient: - Subjective Interval history: Patient seen and examined sitting up at bedside eating breakfast. Patient reports requiring O2 at night and improved SOB today. She has been weaned off O2. She is ambulating with a walker and denies any new c/o. - Constitutional Vitals: Temp Pulse Resp BP Pulse Ox 98.6 F 98 16 123/75 94 12/17/17 07:43 12/17/17 07:43 12/17/17 07:43 12/17/17 07:43 12/17/17 07:43 General appearance: Present: cooperative, A&O X 3, morbidly obese, no acute distress - Head Head exam: Present: atraumatic, normocephalic - Eye Eye exam: Present: PERRL, conjuntiva pink, sclera anicteric Pupils: Present: PERRL - ENT ENT exam: Present: mucous membranes moist, normal oropharynx - Neck Neck exam general surgery: Present: supple, trachea midline. Absent: lymphadenopathy - Respiratory Respiratory exam: Present: rales (mild), wheezes (mild expiratory). Absent: accessory muscle use, rhonchi - Cardiovascular Cardiovascular exam: Present: RRR, +S1, +S2, systolic murmur (3/6 ZAID). Absent : diastolic murmur, gallop, JVD, rubs - GI/Abdominal GI/Abdominal exam: Present: normal bowel sounds, soft, no peritoneal signs. Absent: distended, guarding, tenderness - Extremities Exam Extremities exam: Present: pedal edema (1+), warm, radial pulses palpable and symmetrical. Absent: calf tenderness, cyanotic - Back Exam Back exam: Present: normal inspection. Absent: tenderness - Neurological Exam Neurological exam: Present: alert, CN II-XII intact, oriented X3, no focal deficits. Absent: pronater drift, facial droop, speech deficit - Skin Skin exam: Present: dry, intact, normal color, warm Internal Medicine: Result - Labs CBC & Chem 7: 12/17/17 02:32 12/17/17 02:32 Labs: Short CBC 12/17/17 Range/Units 02:32 WBC 4.8 (4.3-11.1) K/mcL Hgb 9.1 L (11.5-15.4) g/dL Hct 30.4 L (35.3-44.9) % Plt Count 116 L (140-400) K/mcL BMP 12/17/17 02:32 Sodium 142 Potassium 3.9 Chloride 105 Carbon Dioxide 30 H BUN 11 Creatinine 0.46 L Glucose 138 H Calcium 8.8 - ABG Interpretation ABG results: PT/INR, D-dimer PT 13.1 Seconds (9.4-12.1) H 12/14/17 18:31 - Pulse Oximetry Interpretation Digit-Finger Pulse Oximetry Readin (2L O2 via NC)
[2017-12-17] MEDS: cloNIDine HCl 0.1 MG TABLET PO SCH (08:03)
[2017-12-17] MEDS: Aspirin 81 MG TAB.CHEW PO SCH (08:03)
[2017-12-17] MEDS: Insulin LISPRO 300 UNITS/3 ML VIAL SQ SCH ×4 (08:05→20:46)
[2017-12-17] MEDS: Furosemide 40 MG/4 ML VIAL IVP SCH (13:19)
[2017-12-17] MEDS: traZODone 50 MG TABLET PO SCH (20:44)
[2017-12-17] MEDS: risperiDONE 1 MG TABLET PO SCH (20:44)
[2017-12-17] MEDS: Insulin DETEMIR 100 UNIT/ML X5UNITS SQ SCH (20:45)
[2017-12-18 02:14] LABS: Hematocrit 31.6 % (35.3-44.9); Hemoglobin 9.8 g/dL (11.5-15.4); Mean Corpuscular Hemoglobin 27.8 pg (28.0-33.3); Mean Corpuscular Volume 89.5 fL (83.0-100.0); Mean Platelet Volume 10.2 fL (9.4-12.4); Platelet Count 118 K/mcL (140-400); Red Blood Count 3.53 M/mcL (3.82-4.97); Red Cell Distribution Width 15.7 % (11.5-14.5)
[2017-12-18 02:24] LABS: BUN/Creatinine Ratio 25 (6-26); Blood Urea Nitrogen 13 mg/dL (8-23); Calcium 8.9 mg/dL (8.6-10.3); Carbon Dioxide 30 mEq/L (23-29); Chloride 104 mEq/L (98-107); Glucose 153 mg/dL (70-105); Osmolality,Calculated 295 (280-300); Potassium 3.8 mEq/L (3.5-5.1); Sodium 141 mEq/L (136-145); eGFR For African Americans > 60 (> 60); eGFR For Non-African Americans > 60 (> 60)
[2017-12-18] MEDS: *HR* Heparin 5,000 UNIT/ML VIAL SQ SCH ×2 (05:31→13:25)
--- NOTE | 2017-12-18 07:24 | Discharge Summary ---
<Arnulfo Stern - Last Filed: 12/18/17 08:39> - NOTES TO OUTPATIENT PROVIDER Notes to Outpatient Provider: A1C 9.0, adjust DM meds as needed. Patient will need sleep study and PFTs. Continue Aspirin, Plavix, and statin for stroke prophylaxis. Continue Metoprolol and Lasix 40mg. [facility] ordered Date of Encounter: 12/18/17 Time of Encounter: 07:24 - Discharge Diagnosis (1) Acute diastolic CHF (congestive heart failure) Priority: Primary Status: Acute (2) COPD (chronic obstructive pulmonary disease) Priority: Primary Status: Chronic Qualifiers: COPD type: unspecified COPD Qualified Code(s): J44.9 - Chronic obstructive pulmonary disease, unspecified (3) HTN (hypertension) Priority: Secondary Status: Chronic Qualifiers: Hypertension type: essential hypertension Qualified Code(s): I10 - Essential (primary) hypertension (4) Heart murmur, systolic Priority: Secondary Status: Acute (5) Diabetes mellitus Priority: Secondary Status: Chronic Qualifiers: Diabetes mellitus type: type 2 Diabetes mellitus long-term insulin use: without long-term use Diabetes mellitus complication status: without complication Qualified Code(s): E11.9 - Type 2 diabetes mellitus without complications (6) Obesity Priority: Secondary Status: Chronic Qualifiers: Obesity type: unspecified obesity type Obesity classification: adult class 3 (BMI >= 40) Serious obesity comorbidity presence: without serious comorbidity Body mass index: BMI 40.0-44.9 Qualified Code(s): E66.9 - Obesity, unspecified; Z68.41 - Body mass index (BMI) 40.0-44.9, adult; Z68.41 - Body mass index (BMI) 40.0-44.9, adult; Z68.41 - Body mass index (BMI) 40.0-44.9 , adult; Z68.41 - Body mass index (BMI) 40.0-44.9, adult (7) Ambulatory dysfunction Priority: Secondary Status: Acute (8) DVT prophylaxis Priority: Secondary Status: Acute (9) MAKSIM (obstructive sleep apnea) Priority: Secondary Status: Suspected Hospital course: Ms. Isaebl is a 67 year old female with PMH of HLD, DM, Morbid Obesity, suspected COPD, HTN, Hx of ectopy but not Afib, and non-obstructing CAD, last [facility] in 2010, who was in her usual state of health till 530pm 12/14/17 when her noted she was leaning to the R when ambulating,.The patient also complained of R UE and LE numbness. She said it felt like "her bowels went into her legs". She denied speech deficits, facial droop or paralysis, no tongue deviation. At time of review, her motor weakness had resolved but her RUE numbness persisted. She presented outside of the window period to the ER. She received ASA with no adverse effects. Head CT done in the ER showed cerebral atrophy without evidence of acute infarct and MRI was negative for CVA. Neurology recommended continued ASA, Plavix, and statin. Patient was found to have PND, crackles on exam, cardiac murmor, nocturnal cough, and CALVERT meeting [place] criteria for acute CHF. Echo revealed EF 55-60%. CTA was negative for PE. Her BB dose was increased due to tachycardia and she was transition from IV to Lasix 40mg once fluid balance improved. Patient noted to be hypoxia at PM requiring O2 but she dis not qualify for home O2 during 6 minute walk test. Recommend outpatient sleep study. Patient refused PT/OT recommendation for going to rehab and choose [facility] instead. Follow up with PCP in 1-2 weeks. Discharge discussed with: patient, family - Time Spent with Patient Total time spent providing and/or coordinating discharge services: - Discharge Medications Prescriptions: Alcohol Antiseptic Pads [Alcohol Pads] 1 each TP QID 30 Days #120 med..pad Atorvastatin [Lipitor] 80 mg PO HS #60 tablet Blood Sugar Diagnostic [Glucose Test Strip] 1 each MC QID 30 Days #120 strip Blood-Glucose Meter [Accu-Chek Guide Monitor System] 1 each MC QID #1 each Furosemide [Lasix] 40 mg IVP DAILY #60 vial Glimepiride [Amaryl] 7.5 mg PO BID #60 tablet Lancets 1 each MC QID 30 Days #120 each Metoprolol [Lopressor] 50 mg PO BID #120 tablet Home Medications: Albuterol Sulfate [Albuterol Inhaler] 2 puff IH Q4H PRN 12/14/17 [History] Clopidogrel [Plavix] 75 mg PO DAILY 12/14/17 [History] Omeprazole [PriLOSEC] 20 mg PO DAILY 12/14/17 [History] Quetiapine Fumarate [Seroquel] 300 mg PO HS 12/14/17 [History] SitaGLIPtin [Januvia] 100 mg PO DAILY 12/14/17 [History] Trazodone HCl 100 mg PO HS 12/14/17 [History] Trospium Chloride 20 mg PO DAILY 12/14/17 [History] cloNIDine HCl [CloNIDine HCl] 0.1 mg PO DAILY 12/14/17 [History] metFORMIN [Glucophage] 1,000 mg PO QAM 12/14/17 [History] metFORMIN [Glucophage] 1,500 mg PO QPM 12/14/17 [History] risperiDONE [Risperidone] 4 mg PO DAILY 12/14/17 [History] Alcohol Antiseptic Pads [Alcohol Pads] 1 each TP QID 30 Days #120 med..pad 12/16 [Rx] Blood Sugar Diagnostic [Glucose Test Strip] 1 each MC QID 30 Days #120 strip [Rx] Blood-Glucose Meter [Accu-Chek Guide Monitor System] 1 each MC QID #1 each 12/16 [Rx] Lancets 1 each QID 30 Days #120 each 12/16/17 [Rx] Aspirin 81 mg PO DAILY tab.chew 12/18/17 [Rx] Atorvastatin [Lipitor] 80 mg PO HS #60 tablet 12/18/17 [Rx] Furosemide [Lasix] 40 mg IVP DAILY #60 vial 12/18/17 [Rx] Glimepiride [Amaryl] 7.5 mg PO BID #60 tablet 12/18/17 [Rx] Metoprolol [Lopressor] 50 mg PO BID #120 tablet 12/18/17 [Rx] Allergies/Adverse Reactions: 3 Allergy/AdvReac Type Severity Reaction Status Date / Time codeine Allergy See Verified 12/14/17 20:04 Comments Penicillins Allergy Vomiting Verified 12/14/17 20:04 Date of admission: 12/16/17 13:22 Primary care physician: Amy Walden Consults: Neurology Discharging clinician: Arnulfo Stern Anticipated date of discharge: 12/18/17 - Constitutional Vitals: Temp Pulse Resp BP Pulse Ox 98.2 F 108 16 124/81 92 12/18/17 07:10 12/18/17 07:10 12/18/17 07:10 12/18/17 07:10 12/18/17 07:10 General appearance: Present: cooperative, A&O X 3, morbidly obese, no acute distress - Head Head exam: Present: atraumatic, normocephalic - Eye Eye exam: Present: PERRL, conjuntiva pink, sclera anicteric Pupils: Present: PERRL - ENT ENT exam: Present: mucous membranes moist, normal oropharynx - Neck Neck exam general surgery: Present: supple, trachea midline. Absent: lymphadenopathy - Respiratory Respiratory exam: Present: CTAB. Absent: accessory muscle use, rales, rhonchi, wheezes - Cardiovascular Cardiovascular exam: Present: RRR, +S1, +S2. Absent: diastolic murmur, gallop, rubs, systolic murmur - GI/Abdominal GI/Abdominal exam: Present: normal bowel sounds, soft, no peritoneal signs. Absent: distended, tenderness - Extremities Exam Extremities exam: Present: warm, radial pulses palpable and symmetrical. Absent : calf tenderness, cyanotic, pedal edema - Back Exam Back exam: Present: normal inspection. Absent: tenderness - Neurological Exam Neurological exam: Present: CN II-XII intact, oriented X3, no focal deficits. Absent: pronater drift, facial droop, speech deficit - Psychiatric Psychiatric exam: Present: normal affect, normal mood - Skin Skin exam: Present: dry, intact, normal color, warm - Patient Status Disposition: Home Health Service Condition: Good Functional capacity at discharge: uses cane/walker Overall status at discharge: patient is progressing back to baseline - Discharge Instructions Follow Up With: Amy Walden MD [Primary Care Provider] - Additional Instructions: Take medications as prescribed. Limit fluid intake to less than 2L per day and low salt diet. Increase dose of Metoprolol to 50mg - Diet and Activity Activity: ambulate only with your walker Diet: diabetic diet (2L fluid restriction), low salt diet <Victor Hugo Mcduffie H - Last Filed: 12/18/17 08:44> Date of Encounter: 12/18/17 - Discharge Diagnosis (1) HTN (hypertension) Status: Chronic Qualifiers: Hypertension type: essential hypertension Qualified Code(s): I10 - Essential (primary) hypertension (2) COPD (chronic obstructive pulmonary disease) Status: Chronic Qualifiers: COPD type: unspecified COPD Qualified Code(s): J44.9 - Chronic obstructive pulmonary disease, unspecified (3) Diabetes mellitus Status: Chronic Qualifiers: Diabetes mellitus type: type 2 Diabetes mellitus long-term insulin use: without intermodal customer service use Diabetes mellitus complication status: without complication Qualified Code(s): E11.9 - Type 2 diabetes mellitus without complications (4) Obesity Status: Chronic Qualifiers: Obesity type: unspecified obesity type Obesity classification: adult class 3 (BMI >= 40) Serious obesity comorbidity presence: without serious comorbidity Body mass index: BMI 40.0-44.9 Qualified Code(s): E66.9 - Obesity, unspecified; Z68.41 - Body mass index (BMI) 40.0-44.9, adult; Z68.41 - Body mass index (BMI) 40.0-44.9, adult; Z68.41 - Body mass index (BMI) 40.0-44.9 , adult; Z68.41 - Body mass index (BMI) 40.0-44.9, adult (5) Heart murmur, systolic Status: Acute (6) DVT prophylaxis Status: Acute (7) Acute diastolic CHF (congestive heart failure) Status: Acute (8) Ambulatory dysfunction Status: Acute (9) MAKSIM (obstructive sleep apnea) Status: Suspected Hospital course: Ms. Isabel is a 67 year old female - Time Spent with Patient Total time spent providing and/or coordinating discharge services: Date of admission: 12/16/17 13:22 Primary care physician: Amy Walden - Constitutional Vitals: Temp Pulse Resp BP Pulse Ox 98.2 F 108 16 124/81 92 12/18/17 07:10 12/18/17 07:10 12/18/17 07:10 12/18/17 07:10 12/18/17 07:10 - Attending Attestation Acute diastolic CHF exacerbation Time spent 40 minutes Prescription for 40 mg of oral Lasix will be provided daily. Decrease fluid intake The patient has declined a option to go to a rehabilitation facility. Risks were explained I examined this patient and my medical decision-making was reviewed with the Resident Physician. I agree with the documented findings, disposition and treatment plan as described except to the extent set forth below.
--- NOTE | 2017-12-18 07:26 | Physician Discharge Referral ---
<RavimaureenArnulfo - Last Filed: 12/18/17 08:12> Home Health/Hosp Referral Info Transfer to: Home Health Attending Provider: Victor Hugo Banks Provider in Charge Post Discharge: PCP - Diagnosis (1) Acute diastolic CHF (congestive heart failure) Priority: Primary Status: Acute (2) COPD (chronic obstructive pulmonary disease) Priority: Primary Status: Chronic (3) HTN (hypertension) Priority: Secondary Status: Chronic (4) Heart murmur, systolic Priority: Secondary Status: Acute (5) Diabetes mellitus Priority: Secondary Status: Chronic (6) Obesity Priority: Secondary Status: Chronic (8) Ambulatory dysfunction Priority: Secondary Status: Acute (9) DVT prophylaxis Priority: Secondary Status: Acute - Respiratory Orders Smoking Cessation: Smoking cessation has been advised. For more information, call the [employer] Tobacco Quit Line at 2-452-PBHR-NOW. - Diet/Nutrition Diet/Nutrition Orders: Cardiac (Diabetic) - Activity Activity Orders: Up ad malena, Walker - Services Needed Following services are medically necessary services: Nursing, Home Health Aide, Physical Therapy, Occupational Therapy - Transfer Medications Prescriptions: Alcohol Antiseptic Pads [Alcohol Pads] 1 each TP QID 30 Days #120 med..pad Atorvastatin [Lipitor] 80 mg PO HS #60 tablet Blood Sugar Diagnostic [Glucose Test Strip] 1 each MC QID 30 Days #120 strip Blood-Glucose Meter [Accu-Chek Guide Monitor System] 1 each MC QID #1 each Furosemide [Lasix] 40 mg PO DAILY #60 tablet Glimepiride [Amaryl] 7.5 mg PO BID #60 tablet Lancets 1 each MC QID 30 Days #120 each Metoprolol [Lopressor] 50 mg PO BID #120 tablet Home Medications: Albuterol Sulfate [Albuterol Inhaler] 2 puff IH Q4H PRN 12/14/17 [History] Clopidogrel [Plavix] 75 mg PO DAILY 12/14/17 [History] Omeprazole [PriLOSEC] 20 mg PO DAILY 12/14/17 [History] Quetiapine Fumarate [Seroquel] 300 mg PO HS 12/14/17 [History] SitaGLIPtin [Januvia] 100 mg PO DAILY 12/14/17 [History] Trazodone HCl 100 mg PO HS 12/14/17 [History] Trospium Chloride 20 mg PO DAILY 12/14/17 [History] cloNIDine HCl [CloNIDine HCl] 0.1 mg PO DAILY 12/14/17 [History] metFORMIN [Glucophage] 1,000 mg PO QAM 12/14/17 [History] metFORMIN [Glucophage] 1,500 mg PO QPM 12/14/17 [History] risperiDONE [Risperidone] 4 mg PO DAILY 12/14/17 [History] Alcohol Antiseptic Pads [Alcohol Pads] 1 each TP QID 30 Days #120 med..pad 12/16 [Rx] Blood Sugar Diagnostic [Glucose Test Strip] 1 each MC QID 30 Days #120 strip [Rx] Blood-Glucose Meter [Accu-Chek Guide Monitor System] 1 each MC QID #1 each 12/16 [Rx] Lancets 1 each MC QID 30 Days #120 each 12/16/17 [Rx] Aspirin 81 mg PO DAILY tab.chew 12/18/17 [Rx] Atorvastatin [Lipitor] 80 mg PO HS #60 tablet 12/18/17 [Rx] Furosemide [Lasix] 40 mg PO DAILY #60 tablet 12/18/17 [Rx] Glimepiride [Amaryl] 7.5 mg PO BID #60 tablet 12/18/17 [Rx] Metoprolol [Lopressor] 50 mg PO BID #120 tablet 12/18/17 [Rx] Allergies/Adverse Reactions: 3 Allergy/AdvReac Type Severity Reaction Status Date / Time codeine Allergy See Verified 12/14/17 20:04 Comments Penicillins Allergy Vomiting Verified 12/14/17 20:04 Certification: Further, I certify that my clinical findings support that this patient is homebound (i.e. absences from home require considerable and taxing effort and are for medical reasons or gnosticist services or infrequently or short duration when for other reasons) because: Homebound Reason: Patient requires assistance of a person or device to safely leave home, Leaving home requires considerable and taxing effort due to condition Attestation: My signature below is to certify that this patient is under my care and that I, or nurse practitioner, or a physician's assistant operations manager working with me, has a face-to -face encounter with this patient. <Victor Hugo Mcduffie H - Last Filed: 12/18/17 08:45> - Diagnosis (1) HTN (hypertension) Status: Chronic (2) COPD (chronic obstructive pulmonary disease) Status: Chronic (3) Diabetes mellitus Status: Chronic (4) Obesity Status: Chronic (5) Heart murmur, systolic Status: Acute (6) DVT prophylaxis Status: Acute (7) Acute diastolic CHF (congestive heart failure) Status: Acute (8) Ambulatory dysfunction Status: Acute (9) MAKSIM (obstructive sleep apnea) Status: Suspected - Respiratory Orders Smoking Cessation: Smoking cessation has been advised. For more information, call the [place] Tobacco Quit Line at 0-923-SHOS-NOW. Certification: Further, I certify that my clinical findings support that this patient is homebound (i.e. absences from home require considerable and taxing effort and are for medical reasons or gnosticist services or infrequently or short duration when for other reasons) because: Attestation: My signature below is to certify that this patient is under my care and that I, or nurse practitioner, or a physician's assistant operations manager working with me, has a face-to -face encounter with this patient. Lasix 40 mg daily I examined this patient and my medical decision-making was reviewed with the Resident Physician. I agree with the documented findings, disposition and treatment plan as described except to the extent set forth below.
[2017-12-18] MEDS: Insulin LISPRO 300 UNITS/3 ML VIAL SQ SCH ×2 (10:30→13:24)
[2017-12-18] MEDS: cloNIDine HCl 0.1 MG TABLET PO SCH (10:31)
[2017-12-18] MEDS: Furosemide 40 MG/4 ML VIAL IVP SCH (10:31)
[2017-12-18] MEDS: Aspirin 81 MG TAB.CHEW PO SCH (10:31)
[2017-12-18 16:58] VITALS: BP 105/70
== END 2017-12-18 17:45 | disposition home health service (06) | DRG 292 ==
LOC: 2NENU 18:27 → EMEROO 18:27 → 2NENU 22:31
PROVIDERS: ADMIT Internal Medicine; ATTEND Internal Medicine

== ENCOUNTER 2019-04-05 19:31 | Inpatient (IN) ==
[2019-04-05] MEDS ORDERED: 0.9 % Sodium Chloride 1,000 ML IVC ONE ×2 (19:38→20:19)
[2019-04-05] MEDS ORDERED: Isovue-370 500 ML BOTTLE IVP ONE (19:42)
--- NOTE | 2019-04-05 19:51 | Emergency Department Note ---
Disposition Clinical Impression: Elevated lactic acid level, SIRS (systemic inflammatory response syndrome), Right arm pain Nausea and vomiting Qualifiers: Vomiting type: unspecified Vomiting Intractability: non-intractable Qualified Code(s): R11.2 - Nausea with vomiting, unspecified Disposition: Still a Patient Condition: Fair Forms: ED Satisfaction Letter Time of Disposition: 21:09 General Adult HPI - General Chief complaint: ED Neuro Symptoms/Deficit Stated complaint: possible stroke Time Seen by Provider: 04/05/19 19:38 Source: patient, EMS Mode of arrival: EMS Limitations: no limitations Nursing Notes Reviewed: Yes Vital Signs Reviewed: Yes - History of Present Illness HPI Narrative: 69-year-old female with prior TIAs presents with a chief complaint of right arm pain and not feeling well. The patient reports she was having pain in her right arm starting around 18:40. EMS was called due to concern for stroke. The patient is on to say she has not felt well for a few days. She has had fevers at home and felt flushed and sweaty. She has had a cough with productive phlegm as well as nausea and vomiting. She denies any chest or abdominal pain. She denies any numbness tingling or paresthesias into any extremity. She denies any headache, visual changes, difficulty with speech. She denies any focal weakness. No other complaints. Pt Subjective Complaint: Feeling unwell Onset (ago): day(s) Improves with: nothing Worsens with: nothing Associated symptoms: Reports: cough, fever/chills, nausea/vomiting Treatments Prior to Arrival: none - Related Data Home Medications Medication Instructions Recorded Confirmed Clopidogrel [Plavix] 75 mg PO DAILY 12/14/17 04/05/19 Omeprazole [PriLOSEC] 20 mg PO DAILY 12/14/17 04/05/19 Quetiapine Fumarate [Seroquel] 300 mg PO HS 12/14/17 04/05/19 SitaGLIPtin [Januvia] 100 mg PO DAILY 12/14/17 04/05/19 Trospium Chloride 20 mg PO HS 12/14/17 04/05/19 cloNIDine HCl [CloNIDine HCl] 0.1 mg PO DAILY 12/14/17 04/05/19 metFORMIN [Glucophage] 1,000 mg PO QPM 12/14/17 04/05/19 metFORMIN [Glucophage] 1,500 mg PO QAM 12/14/17 04/05/19 risperiDONE [Risperidone] 4 mg PO HS 12/14/17 04/05/19 Colesevelam [Welchol] 625 mg PO DAILY PRN 11/27/18 04/05/19 Fluticasone/Salmeterol [Advair Hfa 2 puff IH HS 11/27/18 04/05/19 115-21 Mcg Inhaler] Nadolol 20 mg PO HS 11/27/18 04/05/19 [place]-3/Dha/Epa/Fish Oil [Fish Oil 2 each PO BID 11/27/18 04/05/19 1,000 mg Softgel] Atorvastatin Calcium 80 mg PO HS 01/04/19 04/05/19 Glimepiride [Amaryl] 4 mg PO BID 01/04/19 04/05/19 Trazodone HCl 100 mg PO HS 01/04/19 04/05/19 Albuterol Sulfate [Proair Hfa] 2 puff IH Q6H PRN 04/05/19 04/05/19 Allergies Allergy/AdvReac Type Severity Reaction Status Date / Time codeine Allergy Swelling Verified 04/05/19 21:03 Penicillins Allergy Swelling Verified 04/05/19 21:03 of Face All systems ED: reviewed and negative except as stated. Constitutional: Reports: fever, chills Cardiovascular: Denies: chest pain Respiratory: Reports: cough, dyspnea Gastrointestinal: Reports: nausea, vomiting. Denies: abdominal pain, diarrhea Genitourinary: Denies: dysuria, hematuria Past Medical History - Past Medical History Attestation: Yes The following information was validated with the patient. Source: patient Medical history: Reports: arthritis, asthma, COPD, diabetes, GERD, hyperlipidemia, hypertension, liver disease Surgical history: Reports: appendectomy, cholecystectomy, orthopedic, other Psychiatric history: Reports: no psych history - Social History Smoking Status: Never smoker Smokeless Tobacco Status: No Alcohol use: Reports: none Drug use: Reports: none Physical Exam - General Limitations: no limitations General appearance: alert, in no apparent distress - Head Head exam: atraumatic, normocephalic, normal inspection - Eye Eye exam: Present: normal appearance, PERRL, EOMI - ENT ENT exam: normal exam, mucous membranes dry - Neck Neck exam: Present: normal inspection, full ROM. Absent: meningismus - Chest Chest inspection: Present: normal inspection, symmetric chest wall rise - Respiratory Respiratory exam: Present: normal lung sounds bilaterally - Cardiovascular Cardiovascular exam: Present: normal rhythm, tachycardia, normal heart sounds - Abdominal Exam Abdominal exam: Present: soft, Non-Tender. Absent: tenderness, distention, guarding, rigidity - Extremities Exam Extremities exam: Present: normal inspection, full ROM - Expanded Upper Extremity Exam Shoulder exam: Present: normal inspection, full ROM Arm exam: Present: normal inspection, full ROM Elbow exam: Present: normal inspection, full ROM Forearm/Wrist exam: Present: normal inspection, full ROM, tenderness (Tenderness over the midshaft of the right radius on the dorsal aspect. No overlying soft tissue changes or deformity.) Hand exam: Present: normal inspection, full ROM Vascular exam: Normal: radial pulse - Expanded Lower Extremity Exam Hip/Pelvis exam: Present: normal inspection, full ROM Upper leg exam: Present: normal inspection, full ROM Knee exam: Present: normal inspection, full ROM Lower leg exam: Present: normal inspection, full ROM Ankle exam: Present: normal inspection, full ROM Foot/toe exam: Present: normal inspection, full ROM Neurovascular/Tendon exam: Absent: motor deficit, sensory deficit - Neurological Exam Neurological exam: Present: alert, CN II-XII intact, other (GCS 15, no focal deficits, NIH is 0. The patient has no facial droop or dysarthria. [id number] is normal. No pronator drift.) - Expanded Neurological Exam Patient oriented to: Present: person, place, time Speech: Present: fluid speech Cranial nerves: EOM function (II, III, IV, ): Normal, facial sensation (V): Normal, spinal accessory function (XI): Normal, tongue deviation (XII): Normal Cerebellar function: finger to nose: Normal Motor strength - LUE: 5/5 Motor strength - RUE: 5/5 Motor strength - LLE: 5/5 Motor strength - RLE: 5/5 Sensory exam upper extremity: light touch: Normal Sensory exam lower extremity: light touch: Normal Coma Scale Eye Opening: Spontaneous Coma Scale Motor Response: Obeys Commands Coma Scale Verbal Response: Oriented Coma Scale Total: 15 - Skin Skin exam: Present: warm, dry Course Course Narrative: Seen and examined. Vital signs reviewed. She was febrile for EMS at 102. She is 99.3 here and noted to be tachycardic and to Make. She has an NIH of 0. I believe her symptoms are currently related to an underlying infectious etiology. She is not a stroke alert at this time. She has been made a sepsis alert. We will get labs, CT imaging of the chest abdomen and pelvis for underlying etiology of her tachycardia and tachypnea. - Reevaluation(s) Reevaluation #1: Family about bedside. reports that she kind of had a blank stare and was not responding to him while she was using the bathroom. This was brief and has resolved at the time of arrival. States that she has been using the bathroom quite frequently. No other complaints. We will begins additional IV fluids due to her elevated lactic acid. Vancomycin and meropenem abdomen ordered empirically. The patient is signed out to call center analyst attending Dr. Gatica at shift change for continued management. Vital Signs Temperature 99 F 04/05/19 19:38 Pulse Rate 121 04/05/19 19:38 Respiratory Rate 27 04/05/19 19:38 Blood Pressure 124/99 04/05/19 19:38 O2 Sat by Pulse Oximetry 97 04/05/19 19:38 Temperature 99 F 04/05/19 19:38 Pulse Rate 121 04/05/19 19:38 Respiratory Rate 27 04/05/19 19:38 Blood Pressure 124/99 04/05/19 19:38 O2 Sat by Pulse Oximetry 97 04/05/19 19:38 Oxygen Delivery Oxygen Delivery Nasal Cannula Medical Decision Making - [facility] Narrative Medical decision making narrative: 69-year-old female presenting due to transient altered mental status as well as general unwellness for a few days. She is both tachycardic and tachypneic here. She was febrile for EMS with a temp of 99.3 here. Her labs demonstrate an elevated lactic acid at this point. 2 L of IV fluids have been given. Discussed with pharmacy to begin broad-spectrum antibiotic coverage with vancomycin and meropenem. The patient is signed out to the call center analyst attending Dr. Gatica currently pending CT imaging of the head, chest abdomen and pelvis. - Lab Data Lab results reviewed: Yes I reviewed the patient's lab results. Result diagrams: 04/05/19 19:44 04/05/19 19:44 Lab Results 04/05/19 04/05/19 04/05/19 Range/Units 19:44 19:44 19:44 WBC 7.4 (4.3-11.1) K/mcL RBC 3.79 L (3.82-4.97) M/mcL Hgb 12.6 (11.5-15.4) g/dL Hct 38.4 (35.3-44.9) % MCV 101.3 H (83.0-100.0) fL MCH 33.2 (28.0-33.3) pg MCHC 32.8 (31.6-35.5) g/dL RDW 13.9 (11.5-14.5) % Plt Count 81 L (140-400) K/mcL MPV 10.9 (9.4-12.4) fL Immature Gran % 0.4 (0-4) % Seg Neutrophils % 93.3 % Lymphocytes % 3.4 % Monocytes % 2.7 % Eosinophils % 0.1 % Basophils % 0.1 % Neutrophils # 6.9 (1.6-8.9) K/mcL Lymphocytes # 0.3 L (0.6-4.6) K/mcL Monocytes # 0.2 (0.0-1.3) K/mcL Eosinophils # 0.0 (0.0-0.6) K/mcL Basophils # 0.0 (0.0-0.2) K/mcL Platelet Estimate Slight Decrease L (Normal) Immature Plt Fraction 2.9 (1.1-6.1) % PT 14.4 H (9.4-12.1) Seconds INR 1.3 APTT 30.9 (26.0-36.0) Seconds Sodium 136 (136-145) mEq/L Potassium 3.8 (3.5-5.1) mEq/L Chloride 99 (98-107) mEq/L Carbon Dioxide 27 (23-29) mEq/L BUN 12 (8-23) mg/dL Creatinine 0.44 L (0.60-1.20) mg/dL Est GFR ( Amer) > 60 (> 60) Est GFR (Non-Af Amer) > 60 (> 60) BUN/Creatinine Ratio 27 H (6-26) Glucose 249 H (70-105) mg/dL Calculated Osmolality 290 (280-300) Lactic Acid (0.5-2.2) mmol/L Calcium 9.5 (8.6-10.3) mg/dL Total Bilirubin 1.3 H (0.3-1.0) mg/dL Direct Bilirubin 0.4 H (0.0-0.2) mg/dL Indirect Bilirubin 0.9 (0.0-1.2) mg/dL AST 27 (13-39) Units/L ALT 31 (7-52) Units/L Alkaline Phosphatase 125 H (34-104) Units/L Troponin I < 0.03 (< 0.04) ng/mL Serum Total Protein 6.9 (6.4-8.9) g/dL Albumin 4.2 (3.5-5.7) g/dL Globulin 2.7 (2.4-3.5) g/dL Albumin/Globulin Ratio 1.6 (1.1-2.2) Urine Color (Yellow) Urine Clarity (Clear) Urine pH (5.0-8.0) pH Units Ur Specific [place] (1.010-1.025) Urine Protein (Neg-Trace) mg/dL Urine Glucose (UA) (Normal) mg/dL Urine Ketones (Negative) mg/dL Urine Blood (Negative) Urine Nitrite (Negative) Urine Bilirubin (Negative) Urine Urobilinogen (Normal) mg/dL Ur Leukocyte Esterase (Negative) Urine Microscopic RBC (0-3) per hpf Urine Microscopic WBC (0-3) per hpf Ur Squamous Epith Cells (None-Few) per lpf Urine Bacteria (None-Few) per hpf Hyaline Casts (None-Few) per lpf Ur Culture Indicated? (NO) 04/05/19 04/05/19 Range/Units 19:44 20:31 WBC (4.3-11.1) K/mcL RBC (3.82-4.97) M/mcL Hgb (11.5-15.4) g/dL Hct (35.3-44.9) % MCV (83.0-100.0) fL MCH (28.0-33.3) pg MCHC (31.6-35.5) g/dL RDW (11.5-14.5) % Plt Count (140-400) K/mcL MPV (9.4-12.4) fL Immature Gran % (0-4) % Seg Neutrophils % % Lymphocytes % % Monocytes % % Eosinophils % % Basophils % % Neutrophils # (1.6-8.9) K/mcL Lymphocytes # (0.6-4.6) K/mcL Monocytes # (0.0-1.3) K/mcL Eosinophils # (0.0-0.6) K/mcL Basophils # (0.0-0.2) K/mcL Platelet Estimate (Normal) Immature Plt Fraction (1.1-6.1) % PT (9.4-12.1) Seconds INR APTT (26.0-36.0) Seconds Sodium (136-145) mEq/L Potassium (3.5-5.1) mEq/L Chloride (98-107) mEq/L Carbon Dioxide (23-29) mEq/L BUN (8-23) mg/dL Creatinine (0.60-1.20) mg/dL Est GFR ( Amer) (> 60) Est GFR (Non-Af Amer) (> 60) BUN/Creatinine Ratio (6-26) Glucose (70-105) mg/dL Calculated Osmolality (280-300) Lactic Acid 2.6 H (0.5-2.2) mmol/L Calcium (8.6-10.3) mg/dL Total Bilirubin (0.3-1.0) mg/dL Direct Bilirubin (0.0-0.2) mg/dL Indirect Bilirubin (0.0-1.2) mg/dL AST (13-39) Units/L ALT (7-52) Units/L Alkaline Phosphatase (34-104) Units/L Troponin I (< 0.04) ng/mL Serum Total Protein (6.4-8.9) g/dL Albumin (3.5-5.7) g/dL Globulin (2.4-3.5) g/dL Albumin/Globulin Ratio (1.1-2.2) Urine Color Dark Yellow (Yellow) Urine Clarity Cloudy A (Clear) Urine pH 6.0 (5.0-8.0) pH Units Ur Specific [place] 1.022 (1.010-1.025) Urine Protein >=300 H (Neg-Trace) mg/dL Urine Glucose (UA) Normal (Normal) mg/dL Urine Ketones Negative (Negative) mg/dL Urine Blood Moderate H (Negative) Urine Nitrite Positive A (Negative) Urine Bilirubin Negative (Negative) Urine Urobilinogen Normal (Normal) mg/dL Ur Leukocyte Esterase Moderate H (Negative) Urine Microscopic RBC 15-30 H (0-3) per hpf Urine Microscopic WBC TNTC H (0-3) per hpf Ur Squamous Epith Cells Many H (None-Few) per lpf Urine Bacteria Many H (None-Few) per hpf Hyaline Casts None Seen (None-Few) per lpf Ur Culture Indicated? YES A (NO) - Radiology Data Radiology results reviewed: Yes I reviewed the patient's radiology results. Chest X-Ray 04/05/19 19:39 IMPRESSION: No acute abnormality identified. D/ / New Gerber MD / New Gerber MD Interpreting Provider: New Gerber MD - EKG Data EKG #1 EKG attestation: Yes I reviewed and interpreted this EKG. EKG results narrative: EKG demonstrates sinus tachycardia with a left bundle-branch block with a rate of 124. Left axis deviation. Prolonged QRS duration of 1:30. Other intervals normal. Poor R wave progression. No gross ST elevations. She does have mild lateral ST depressions. S.B.Donya - Tyrese.Bridger.Donya Situation: Demographics, MOA Background: Presenting Complaint, Relevant PMH, Meds, & Allergies Assessment: Vital Signs, Course and respsone to treatment, Exam Concerns, Patient/Family Expectation, Pertinant Lab Results, Outstanding Labs (CT Head/Chest/Abdomen) Recommendation: Barrier(s) to disposition, Recommendation based on pending studies, treatments, or consults S.B.AScotty Report Given to: Dr. En Gonzales Repor Time: 21:08
[2019-04-05 20:01] LABS: Hemoglobin 12.6 g/dL (11.5-15.4); Immature Granulocytes % 0.4 % (0-4); Mean Corpuscular Volume 101.3 fL (83.0-100.0)
[2019-04-05 20:03] LABS: Basophils % 0.1 %; Eosinophils % 0.1 %; Hematocrit 38.4 % (35.3-44.9); Immature Platelets 2.9 % (1.1-6.1); Lymphocytes # 0.3 K/mcL (0.6-4.6); Lymphocytes % 3.4 %; Mean Corpuscular HGB Conc 32.8 g/dL (31.6-35.5); Mean Corpuscular Hemoglobin 33.2 pg (28.0-33.3); Mean Platelet Volume 10.9 fL (9.4-12.4); Monocytes # 0.2 K/mcL (0.0-1.3); Monocytes % 2.7 %; Neutrophils # 6.9 K/mcL (1.6-8.9); Red Blood Count 3.79 M/mcL (3.82-4.97); Red Cell Distribution Width 13.9 % (11.5-14.5); Segmented Neutrophils % 93.3 %; White Blood Count 7.4 K/mcL (4.3-11.1)
[2019-04-05 20:22] LABS: Alanine Aminotransferase 31 Units/L (7-52); Albumin 4.2 g/dL (3.5-5.7); Albumin/Globulin Ratio 1.6 (1.1-2.2); Alkaline Phosphatase 125 Units/L (34-104); Aspartate Amino Transferase 27 Units/L (13-39); BUN/Creatinine Ratio 27 (6-26); Bilirubin,Direct 0.4 mg/dL (0.0-0.2); Bilirubin,Indirect 0.9 mg/dL (0.0-1.2); Bilirubin,Total 1.3 mg/dL (0.3-1.0); Blood Urea Nitrogen 12 mg/dL (8-23); Calcium 9.5 mg/dL (8.6-10.3); Carbon Dioxide 27 mEq/L (23-29); Chloride 99 mEq/L (98-107); Globulin 2.7 g/dL (2.4-3.5); Glucose 249 mg/dL (70-105); Osmolality,Calculated 290 (280-300); Potassium 3.8 mEq/L (3.5-5.1); Sodium 136 mEq/L (136-145); Total Protein 6.9 g/dL (6.4-8.9); Troponin I < 0.03 ng/mL (< 0.04); eGFR For African Americans > 60 (> 60); eGFR For Non-African Americans > 60 (> 60)
[2019-04-05 20:31] LABS: Platelet Count 81 K/mcL (140-400); Platelet Estimate Slight Decrease (Normal)
[2019-04-05] MEDS ORDERED: Piperacillin/Tazobactam 3.375 GM in 0.9 % Sodium Chloride Mini Bag 100 ML IVPB ONE (20:37)
[2019-04-05 20:40] LABS: Bilirubin,Urine Negative (Negative); Blood,Urine Moderate (Negative); Clarity,Urine Cloudy (Clear); Color,Urine Dark Yellow (Yellow); Glucose,Urine (UA) Normal (Normal); Ketones,Urine Negative (Negative); Leukocyte Esterase,Urine Moderate (Negative); Nitrite,Urine Positive (Negative); Protein,Urine >=300 mg/dL (Neg-Trace); Specific Gravity,Urine 1.022 (1.010-1.025); Urobilinogen,Urine Normal (Normal)
[2019-04-05 20:41] LABS: Bacteria,Urine Many per hpf (None-Few); Hyaline Casts,Urine None Seen per lpf (None-Few); RBC,Urine 15-30 per hpf (0-3); Squamous Epithelial Cell,Urine Many per lpf (None-Few); WBC,Urine TNTC per hpf (0-3)
[2019-04-05 20:50] LABS: INR 1.3; Prothrombin Time 14.4 Seconds (9.4-12.1)
[2019-04-05 20:52] LABS: Activated Partial Thrombo Time 30.9 Seconds (26.0-36.0)
[2019-04-05] MEDS ORDERED: Meropenem 1,000 MG in 0.9 % Sodium Chloride Mini Bag 100 ML IVPB ONE (21:00)
--- NOTE | 2019-04-05 22:17 | Emergency Department Note ---
Disposition Clinical Impression: Elevated lactic acid level, SIRS (systemic inflammatory response syndrome), Right arm pain Nausea and vomiting Qualifiers: Vomiting type: unspecified Vomiting Intractability: non-intractable Qualified Code(s): R11.2 - Nausea with vomiting, unspecified Disposition: Admitted As Inpatient Condition: Fair Referrals: Amy Walden MD [Primary Care Provider] - Forms: ED Satisfaction Letter Time of Disposition: 22:15 General Adult HPI - General Chief complaint: ED Fever Stated complaint: possible sepsis Time Seen by Provider: 04/05/19 19:38 Source: patient, EMS Mode of arrival: EMS Limitations: no limitations - History of Present Illness Pain Scale: 0 Improves with: nothing Worsens with: nothing Associated symptoms: Reports: cough, fever/chills, nausea/vomiting Treatments Prior to Arrival: none - Related Data Home Medications Medication Instructions Recorded Confirmed Clopidogrel [Plavix] 75 mg PO DAILY 12/14/17 04/05/19 Omeprazole [PriLOSEC] 20 mg PO DAILY 12/14/17 04/05/19 Quetiapine Fumarate [Seroquel] 300 mg PO HS 12/14/17 04/05/19 SitaGLIPtin [Januvia] 100 mg PO DAILY 12/14/17 04/05/19 Trospium Chloride 20 mg PO HS 12/14/17 04/05/19 cloNIDine HCl [CloNIDine HCl] 0.1 mg PO DAILY 12/14/17 04/05/19 metFORMIN [Glucophage] 1,000 mg PO QPM 12/14/17 04/05/19 metFORMIN [Glucophage] 1,500 mg PO QAM 12/14/17 04/05/19 risperiDONE [Risperidone] 4 mg PO HS 12/14/17 04/05/19 Colesevelam [Welchol] 625 mg PO DAILY PRN 11/27/18 04/05/19 Fluticasone/Salmeterol [Advair Hfa 2 puff IH HS 11/27/18 04/05/19 115-21 Mcg Inhaler] Nadolol 20 mg PO HS 11/27/18 04/05/19 [place]-3/Dha/Epa/Fish Oil [Fish Oil 2 each PO BID 11/27/18 04/05/19 1,000 mg Softgel] Atorvastatin Calcium 80 mg PO HS 01/04/19 04/05/19 Glimepiride [Amaryl] 4 mg PO BID 01/04/19 04/05/19 Trazodone HCl 100 mg PO HS 01/04/19 04/05/19 Albuterol Sulfate [Proair Hfa] 2 puff IH Q6H PRN 04/05/19 04/05/19 Amantadine [Symmetrel] 100 mg PO DAILY 04/05/19 04/05/19 Allergies Allergy/AdvReac Type Severity Reaction Status Date / Time codeine Allergy Swelling Verified 04/05/19 21:03 Penicillins Allergy Swelling Verified 04/05/19 21:03 of Face Constitutional: Reports: fever, chills Cardiovascular: Denies: chest pain Respiratory: Reports: cough, dyspnea Gastrointestinal: Reports: nausea, vomiting. Denies: abdominal pain, diarrhea Genitourinary: Denies: dysuria, hematuria Past Medical History - Past Medical History Medical history: Reports: arthritis, asthma, COPD, diabetes, GERD, hyperlipidemia, hypertension, liver disease Surgical history: Reports: appendectomy, cholecystectomy, orthopedic, other Psychiatric history: Reports: no psych history - Social History Smoking Status: Never smoker Smokeless Tobacco Status: No Alcohol use: Reports: none Drug use: Reports: none Physical Exam - General Limitations: no limitations General appearance: alert, in no apparent distress Course Course Narrative: Received signout from Dr. Bowman pending CT report. CT showed no evidence of significant acute intra-abdominal cranial or chest pathology. The case was discussed with the hospitalist and the patient will be admitted to the hospitalist service Vital Signs Temperature 99 F 04/05/19 19:38 Pulse Rate 121 04/05/19 19:38 Respiratory Rate 27 04/05/19 19:38 Blood Pressure 124/99 04/05/19 19:38 O2 Sat by Pulse Oximetry 97 04/05/19 19:38 Temperature 99 F 04/05/19 19:38 Pulse Rate 121 04/05/19 19:38 Respiratory Rate 27 04/05/19 19:38 Blood Pressure 124/99 04/05/19 19:38 O2 Sat by Pulse Oximetry 97 04/05/19 19:38 Oxygen Delivery Oxygen Delivery Nasal Cannula Medical Decision Making - Lab Data Result diagrams: 04/05/19 19:44 04/05/19 19:44 Lab Results 04/05/19 04/05/19 04/05/19 Range/Units 19:44 19:44 19:44 WBC 7.4 (4.3-11.1) K/mcL RBC 3.79 L (3.82-4.97) M/mcL Hgb 12.6 (11.5-15.4) g/dL Hct 38.4 (35.3-44.9) % MCV 101.3 H (83.0-100.0) fL MCH 33.2 (28.0-33.3) pg MCHC 32.8 (31.6-35.5) g/dL RDW 13.9 (11.5-14.5) % Plt Count 81 L (140-400) K/mcL MPV 10.9 (9.4-12.4) fL Immature Gran % 0.4 (0-4) % Seg Neutrophils % 93.3 % Lymphocytes % 3.4 % Monocytes % 2.7 % Eosinophils % 0.1 % Basophils % 0.1 % Neutrophils # 6.9 (1.6-8.9) K/mcL Lymphocytes # 0.3 L (0.6-4.6) K/mcL Monocytes # 0.2 (0.0-1.3) K/mcL Eosinophils # 0.0 (0.0-0.6) K/mcL Basophils # 0.0 (0.0-0.2) K/mcL Platelet Estimate Slight Decrease L (Normal) Immature Plt Fraction 2.9 (1.1-6.1) % PT 14.4 H (9.4-12.1) Seconds INR 1.3 APTT 30.9 (26.0-36.0) Seconds Sodium 136 (136-145) mEq/L Potassium 3.8 (3.5-5.1) mEq/L Chloride 99 (98-107) mEq/L Carbon Dioxide 27 (23-29) mEq/L BUN 12 (8-23) mg/dL Creatinine 0.44 L (0.60-1.20) mg/dL Est GFR ( Amer) > 60 (> 60) Est GFR (Non-Af Amer) > 60 (> 60) BUN/Creatinine Ratio 27 H (6-26) Glucose 249 H (70-105) mg/dL Calculated Osmolality 290 (280-300) Lactic Acid (0.5-2.2) mmol/L Calcium 9.5 (8.6-10.3) mg/dL Total Bilirubin 1.3 H (0.3-1.0) mg/dL Direct Bilirubin 0.4 H (0.0-0.2) mg/dL Indirect Bilirubin 0.9 (0.0-1.2) mg/dL AST 27 (13-39) Units/L ALT 31 (7-52) Units/L Alkaline Phosphatase 125 H (34-104) Units/L Troponin I < 0.03 (< 0.04) ng/mL Serum Total Protein 6.9 (6.4-8.9) g/dL Albumin 4.2 (3.5-5.7) g/dL Globulin 2.7 (2.4-3.5) g/dL Albumin/Globulin Ratio 1.6 (1.1-2.2) Urine Color (Yellow) Urine Clarity (Clear) Urine pH (5.0-8.0) pH Units Ur Specific [place] (1.010-1.025) Urine Protein (Neg-Trace) mg/dL Urine Glucose (UA) (Normal) mg/dL Urine Ketones (Negative) mg/dL Urine Blood (Negative) Urine Nitrite (Negative) Urine Bilirubin (Negative) Urine Urobilinogen (Normal) mg/dL Ur Leukocyte Esterase (Negative) Urine Microscopic RBC (0-3) per hpf Urine Microscopic WBC (0-3) per hpf Ur Squamous Epith Cells (None-Few) per lpf Urine Bacteria (None-Few) per hpf Hyaline Casts (None-Few) per lpf Ur Culture Indicated? (NO) 04/05/19 04/05/19 Range/Units 19:44 20:31 WBC (4.3-11.1) K/mcL RBC (3.82-4.97) M/mcL Hgb (11.5-15.4) g/dL Hct (35.3-44.9) % MCV (83.0-100.0) fL MCH (28.0-33.3) pg MCHC (31.6-35.5) g/dL RDW (11.5-14.5) % Plt Count (140-400) K/mcL MPV (9.4-12.4) fL Immature Gran % (0-4) % Seg Neutrophils % % Lymphocytes % % Monocytes % % Eosinophils % % Basophils % % Neutrophils # (1.6-8.9) K/mcL Lymphocytes # (0.6-4.6) K/mcL Monocytes # (0.0-1.3) K/mcL Eosinophils # (0.0-0.6) K/mcL Basophils # (0.0-0.2) K/mcL Platelet Estimate (Normal) Immature Plt Fraction (1.1-6.1) % PT (9.4-12.1) Seconds INR APTT (26.0-36.0) Seconds Sodium (136-145) mEq/L Potassium (3.5-5.1) mEq/L Chloride (98-107) mEq/L Carbon Dioxide (23-29) mEq/L BUN (8-23) mg/dL Creatinine (0.60-1.20) mg/dL Est GFR ( Amer) (> 60) Est GFR (Non-Af Amer) (> 60) BUN/Creatinine Ratio (6-26) Glucose (70-105) mg/dL Calculated Osmolality (280-300) Lactic Acid 2.6 H (0.5-2.2) mmol/L Calcium (8.6-10.3) mg/dL Total Bilirubin (0.3-1.0) mg/dL Direct Bilirubin (0.0-0.2) mg/dL Indirect Bilirubin (0.0-1.2) mg/dL AST (13-39) Units/L ALT (7-52) Units/L Alkaline Phosphatase (34-104) Units/L Troponin I (< 0.04) ng/mL Serum Total Protein (6.4-8.9) g/dL Albumin (3.5-5.7) g/dL Globulin (2.4-3.5) g/dL Albumin/Globulin Ratio (1.1-2.2) Urine Color Dark Yellow (Yellow) Urine Clarity Cloudy A (Clear) Urine pH 6.0 (5.0-8.0) pH Units Ur Specific [place] 1.022 (1.010-1.025) Urine Protein >=300 H (Neg-Trace) mg/dL Urine Glucose (UA) Normal (Normal) mg/dL Urine Ketones Negative (Negative) mg/dL Urine Blood Moderate H (Negative) Urine Nitrite Positive A (Negative) Urine Bilirubin Negative (Negative) Urine Urobilinogen Normal (Normal) mg/dL Ur Leukocyte Esterase Moderate H (Negative) Urine Microscopic RBC 15-30 H (0-3) per hpf Urine Microscopic WBC TNTC H (0-3) per hpf Ur Squamous Epith Cells Many H (None-Few) per lpf Urine Bacteria Many H (None-Few) per hpf Hyaline Casts None Seen (None-Few) per lpf Ur Culture Indicated? YES A (NO)
[2019-04-05] MEDS ORDERED: Naloxone 0.4 MG/ML INJ IVP PRN (23:34)
[2019-04-05] MEDS ORDERED: D5% in Water 1,000 ML IVC PRN (23:38)
[2019-04-05] MEDS ORDERED: Dextrose Gel 15 GM/37.5 ML TUBE PO PRN ×2 (23:38)
[2019-04-05] MEDS ORDERED: *HR* Dextrose 50 % in Water (Syg) 50 ML SYRINGE IVP PRN (23:38)
--- NOTE | 2019-04-05 23:50 | Internal Med History&Physical ---
Date of Encounter: 04/05/19 Time of Encounter: 23:12 Internal Medicine - H&P: HPI Chief complaint: Sepsis, urinary tract infection Admitted From: Emergency Dept Plans for Post Hospital Care: Home History of present illness: Ms. Isabel is a 69 year old female Patient presented to the emergency department with right arm pain and not feeling well for 2 days. She says earlier this evening she had "a blackout spell" and called an ambulance because she was concerned she was having a stroke. Her who is at bedside in the emergency department stated that she was less responsive to him, and that is what mostly concerned him. She has since become more responsive at this point now. She has also been having incre ased urine frequency as well as burning with urination. She has had episodes like this in the past, the last time was several years ago. At that time she was found to have a urinary tract infection. In the ambulance, patient's temperature was 102. Emergency department patient's initial vital signs were temperature 90.9, pulse 121, respiratory rate 27, blood pressure 124/99, oxygen saturation 97% on 2 L CBC: White count 7.4, hemoglobin 12.6, platelets 81. BMP notable for a glucose of 249. Total bilirubin 1.3 AST 27 ALT 31 Alkaline phosphatase 125 Troponin undetectable Urinalysis greater than 300 protein, blood moderate, positive nitrite, moderate leukocyte esterase, too numerous to count white blood cells, many urine bacteria. EKG: Sinus Tach, rate 124, QTc 464ms, Does have ST elevations in V1-V3 but review of her prior EKGs shows that this was present then as well. Chest x-ray: No acute abnormalities Abdomen and pelvis: Liver morphology consistent with cirrhosis. Portal venous hypertension with splenomegaly, upper abdominal varices and recannulized umbilical vein. Mild gas and stool load throughout the colon suggesting constipation. Moderate-sized umbilical hernia containing fat and fluid. Prominent panniculus. Chest CT angiogram showed no pulmonary embolism Head CT showed no acute intracranial abnormality In the emergency department, patient was flagged as a sepsis alert she was given vancomycin and meropenem empirically prior to results of her urinalysis. She had blood cultures and urine cultures however. She was admitted to the hospital for further management. Upon my evaluation, patient is resting comfortably in the ER bed in no acute distress. She states that she has some shortness of breath, and her baseline chest pain which she has all the time. She has suprapubic abdominal pain, but denies nausea, vomiting, diarrhea and constipation. She is a full code. Past Med Surg Social Fam HX - Past Medical History Medical history: arthritis, asthma, COPD, diabetes, GERD, hyperlipidemia, hypertension, liver disease Additional medical history: heart murmur Psychiatric history: no psych history - Past Surgical History Surgical History: appendectomy, cholecystectomy, orthopedic, other Additional surgical history: foot - Social History Smoking Status: Never smoker Smokeless Tobacco Status: No Alcohol use: none Drug use: none - Family History Father Hx Family Cardiac Disorders: Yes (Heart Attack) Mother Hx Family Cardiac Disorders: Yes (Heart Attack) Internal Medicine - H&P: Meds Clopidogrel [Plavix] 75 mg PO DAILY 12/14/17 [History] Omeprazole [PriLOSEC] 20 mg PO DAILY 12/14/17 [History] Quetiapine Fumarate [Seroquel] 300 mg PO HS 12/14/17 [History] SitaGLIPtin [Januvia] 100 mg PO DAILY 12/14/17 [History] Trospium Chloride 20 mg PO HS 12/14/17 [History] cloNIDine HCl [CloNIDine HCl] 0.1 mg PO DAILY 12/14/17 [History] metFORMIN [Glucophage] 1,000 mg PO QPM 12/14/17 [History] metFORMIN [Glucophage] 1,500 mg PO QAM 12/14/17 [History] risperiDONE [Risperidone] 4 mg PO HS 12/14/17 [History] Colesevelam [Welchol] 625 mg PO DAILY PRN 11/27/18 [History] Fluticasone/Salmeterol [Advair Hfa 115-21 Mcg Inhaler] 2 puff IH HS 11/27/18 [History] Nadolol 20 mg PO HS 11/27/18 [History] [place]-3/Dha/Epa/Fish Oil [Fish Oil 1,000 mg Softgel] 2 each PO BID 11/27/18 [History] Atorvastatin Calcium 80 mg PO HS 01/04/19 [History] Glimepiride [Amaryl] 4 mg PO BID 01/04/19 [History] Trazodone HCl 100 mg PO HS 01/04/19 [History] Albuterol Sulfate [Proair Hfa] 2 puff IH Q6H PRN 04/05/19 [History] Amantadine [Symmetrel] 100 mg PO DAILY 04/05/19 [History] Allergy/AdvReac Type Severity Reaction Status Date / Time codeine Allergy Swelling Verified 04/05/19 21:03 Penicillins Allergy Swelling Verified 04/05/19 21:03 of Face All Systems PM: A 10-system review of systems was performed and is negative for pertinent findings except as documented above in the HPI. - Constitutional Vitals: Temp Pulse Resp BP Pulse Ox 99 F 112 24 126/66 98 04/05/19 19:38 04/05/19 22:27 04/05/19 22:27 04/05/19 22:27 04/05/19 22:27 General appearance: Present: cooperative, A&O X 3, pleasant, no acute distress, answers questions appropriately Exam: - - Head Head exam: Present: normal inspection - Eye Eye exam: Present: EOMI, normal appearance - Neck Neck exam general surgery: Present: full ROM. Absent: tenderness - Respiratory Respiratory exam: Present: wheezes. Absent: CTAB, rales, respiratory distress, rhonchi - Cardiovascular Cardiovascular exam: Present: RRR, systolic murmur. Absent: diastolic murmur Additional comments: Grade 2 systolic murmur - GI/Abdominal GI/Abdominal exam: Present: normal bowel sounds, soft. Absent: tenderness - Extremities Exam Extremities exam: Present: warm, radial pulses palpable and symmetrical. Absent: calf tenderness, pedal edema, tenderness - Neurological Exam Neurological exam: Present: alert, CN II-XII intact, no focal deficits, strengths equal and symetr throughout. Absent: altered, motor sensory deficit, pronater drift, facial droop, speech deficit - Skin Skin exam: Present: dry, normal color, warm Internal Med - H&P Results - Labs CBC & Chem 7: 04/05/19 19:44 04/05/19 19:44 Labs: Short CBC 04/05/19 Range/Units 19:44 WBC 7.4 (4.3-11.1) K/mcL Hgb 12.6 (11.5-15.4) g/dL Hct 38.4 (35.3-44.9) % Plt Count 81 L (140-400) K/mcL Neutrophils # 6.9 (1.6-8.9) K/mcL BMP 04/05/19 19:44 Sodium 136 Potassium 3.8 Chloride 99 Carbon Dioxide 27 BUN 12 Creatinine 0.44 L Glucose 249 H Calcium 9.5 Cardiac Enzymes 04/05/19 Range/Units 19:44 Troponin I < 0.03 (< 0.04) ng/mL Liver Function 04/05/19 Range/Units 19:44 Total Bilirubin 1.3 H (0.3-1.0) mg/dL Direct Bilirubin 0.4 H (0.0-0.2) mg/dL AST 27 (13-39) Units/L ALT 31 (7-52) Units/L Alkaline Phosphatase 125 H (34-104) Units/L Albumin 4.2 (3.5-5.7) g/dL Urine 04/05/19 Range/Units 20:31 Urine Color Dark Yellow (Yellow) Urine Clarity Cloudy A (Clear) Urine pH 6.0 (5.0-8.0) pH Units Ur Specific [place] 1.022 (1.010-1.025) Urine Protein >=300 H (Neg-Trace) mg/dL Urine Glucose (UA) Normal (Normal) mg/dL - Impressions ITS Impressions Chest X-Ray 04/05/19 19:39 IMPRESSION: No acute abnormality identified. D/ / New Gerber MD / New Gerber MD Interpreting Provider: New Gerber MD Abdomen/Pelvis CT 04/05/19 19:42 IMPRESSION: Liver morphology consistent with cirrhosis. Portal venous hypertension with splenomegaly, upper abdominal varices and recannulized umbilical vein. Mild gas and stool load throughout the colon suggesting constipation. Moderate-sized umbilical hernia containing fat and fluid. Prominent panniculus. D/ / John Rondon MD / John Rondon MD Interpreting Provider: John Rondon MD Chest CTA 04/05/19 19:42 IMPRESSION: No findings to suggest large central pulmonary embolism. Splenomegaly, cirrhosis, and sequela of portal venous hypertension. D/ / Jean Rondon MD / Jean Rondon MD Interpreting Provider: Jean Rondon MD Head CT 04/05/19 20:52 IMPRESSION: No acute intracranial abnormality. D/ / John Rondon MD / John Rondon MD Interpreting Provider: John Rondon MD - Assessment and Plan (1) Sepsis Current Visit: Yes Status: Acute Assessment and plan: Patient met sepsis criteria with elevated temperature, heart rate, respiratory rate, lactic acid of 2.6 and a positive urinalysis. Patient was given a total of 2 L of IV fluids, blood cultures and urine cultures were obtained and she was given vancomycin and meropenem in the emergency department. Continue to monitor vital signs Repeat lactic acid Treating urinary tract infection as below Qualifiers: Sepsis type: sepsis due to unspecified organism Acute renal failure type: unspecified Severe sepsis shock status: without septic shock Qualified Code(s): A41.9 - Sepsis, unspecified organism; R65.20 - Severe sepsis without septic shock; N17.9 - Acute kidney failure, unspecified (2) Urinary tract infection Current Visit: Yes Status: Acute Assessment and plan: Patient's urinalysis is suggestive of infection. She was given vancomycin and meropenem in the emergency department. Blood and urine cultures were obtained. Follow-up urine culture Follow up blood culture Will discontinue vancomycin and meropenem. Start ceftriaxone. Monitor for worsening signs of infection Qualifiers: Urinary tract infection type: site unspecified Hematuria presence: with hematuria Qualified Code(s): N39.0 - Urinary tract infection, site not specified; R31.9 - Hematuria, unspecified (3) TIA (transient ischemic attack) Current Visit: No Status: Acute Assessment and plan: Patient did have initial concerns for possible stroke, she had altered mental status and decreased responsiveness. Her symptoms have resolved and she has no lateralizing signs of weakness. She has had TIAs in the past. Head CT done in the emergency department was negative for acute intracranial abnormality. Stroke alert was not called. Continue to monitor Treatment for urinary tract infection as above Consider brain MRI in the morning if patient not improving with treatment for the urinary tract infection (4) COPD (chronic obstructive pulmonary disease) Current Visit: No Status: Chronic Assessment and plan: Patient wheezy on exam. Has history of COPD. Start breathing treatments Oxygen supplementation as needed 40 mg prednisone daily Qualifiers: COPD type: unspecified COPD Qualified Code(s): J44.9 - Chronic obstructive pulmonary disease, unspecified (5) Diabetes mellitus Current Visit: No Status: Chronic Assessment and plan: Patient is not an insulin dependent diabetic Monitor sugars ACHS Diabetic diet Low dose insulin sliding scale as needed Hold home meds. Qualifiers: Diabetes mellitus type: type 2 Diabetes mellitus check services clerk insulin use: wi thout intermediate use Diabetes mellitus complication status: without compli cation Qualified Code(s): E11.9 - Type 2 diabetes mellitus without compli cations (6) Cirrhosis Current Visit: Yes Status: Acute Assessment and plan: Patient has been told that she has history of cirrhosis, but she is unclear as to why she has cirrhosis. She has a slightly elevated total bilirubin, as well as a lately count of 81 associated with this. Her other liver function tests are within normal limits. Continue to monitor Repeat morning labs Check ammonia level Qualifiers: Hepatic cirrhosis type: unspecified hepatic cirrhosis Ascites presence: unspecified Qualified Code(s): K74.60 - Unspecified cirrhosis of liver (7) DVT prophylaxis Current Visit: No Status: Acute Assessment and plan: SCDs - Time Spent With Patient Total time spent is greater than 50% in coordination of care (as documented) at patient's floor/unit and/or counseling patient: Greater than 35 minutes
[2019-04-06] MEDS ORDERED: Albuterol 2.5 MG/3 ML NEBULIZER IH PRN (00:02)
[2019-04-06] MEDS ORDERED: cefTRIAXone 1,000 MG in Water for inj. (sterile) 10 ML IVP SCH (01:00)
[2019-04-06] MEDS ORDERED: Acetaminophen 325 MG TABLET PO PRN (02:10)
[2019-04-06] MEDS: Ibuprofen 400 MG TABLET PO PRN ×2 (02:43→08:46)
[2019-04-06] MEDS: Ipratropium/Albuterol Neb 3 ML IH SCH ×5 (04:03→22:08)
[2019-04-06 04:29] LABS: Mean Corpuscular Volume 102.4 fL (83.0-100.0)
[2019-04-06 04:30] LABS: Hematocrit 34.2 % (35.3-44.9); Hemoglobin 11.1 g/dL (11.5-15.4); Immature Platelets 2.7 % (1.1-6.1); Mean Corpuscular HGB Conc 32.5 g/dL (31.6-35.5); Mean Corpuscular Hemoglobin 33.2 pg (28.0-33.3); Mean Platelet Volume 11.2 fL (9.4-12.4); Red Blood Count 3.34 M/mcL (3.82-4.97); Red Cell Distribution Width 14.1 % (11.5-14.5); White Blood Count 9.8 K/mcL (4.3-11.1)
[2019-04-06 04:39] LABS: Alanine Aminotransferase 26 Units/L (7-52); Albumin 3.5 g/dL (3.5-5.7); Albumin/Globulin Ratio 1.5 (1.1-2.2); Alkaline Phosphatase 97 Units/L (34-104); Aspartate Amino Transferase 29 Units/L (13-39); BUN/Creatinine Ratio 23 (6-26); Bilirubin,Total 1.2 mg/dL (0.3-1.0); Blood Urea Nitrogen 9 mg/dL (8-23); Calcium 8.5 mg/dL (8.6-10.3); Carbon Dioxide 23 mEq/L (23-29); Chloride 103 mEq/L (98-107); Globulin 2.4 g/dL (2.4-3.5); Glucose 177 mg/dL (70-105); Osmolality,Calculated 289 (280-300); Potassium 3.9 mEq/L (3.5-5.1); Sodium 138 mEq/L (136-145); Total Protein 5.9 g/dL (6.4-8.9); eGFR For African Americans > 60 (> 60); eGFR For Non-African Americans > 60 (> 60)
[2019-04-06] MEDS: Insulin LISPRO 300 UNITS/3 ML VIAL SQ SCH ×4 (08:29→20:39)
[2019-04-06] MEDS ORDERED: predniSONE 20 MG TABLET PO SCH (09:00)
--- NOTE | 2019-04-06 09:09 | Event Note ---
Date of Encounter: 04/06/19 Time of Encounter: 09:09 Seen and examined this morning at bedside. Admitted overnight for sepsis secondary to UTI and altered mental status. Currently back to baseline as per who is at bedside. Wheezing feeling better. Denying any complaints. Labs reviewed Patient without white count, normal ammonia, lactate normalized. Abnormal UA awaiting urine and blood culture. c/w ceftriaxone. We will obtain PT/OT consult given some ongoing weakness.
[2019-04-06 11:50] LABS: Acinetobacter baumannii by PCR Not Detected (Not Detect); Enterobacter cloacae Cmplx PCR Not Detected (Not Detect); Enterobacteriaceae by PCR Not Detected (Not Detect); Enterococcus by PCR Not Detected (Not Detect); Escherichia coli by PCR DETECTED (Not Detect); Staphylococcus aureus by PCR Not Detected (Not Detect); Staphylococcus by PCR Not Detected (Not Detect); Streptococcus agalactiae(B)PCR Not Detected (Not Detect); Streptococcus by PCR Not Detected (Not Detect); Streptococcus pneumoniae PCR Not Detected (Not Detect); Streptococcus pyogenes (A) PCR Not Detected (Not Detect); blaKPC Carbapenem-Resist Gene Not Detected (Not Detect)
[2019-04-06 11:51] LABS: Candida albicans by PCR Not Detected (Not Detect); Candida glabrata by PCR Not Detected (Not Detect); Candida krusei by PCR Not Detected (Not Detect); Candida parapsilosis by PCR Not Detected (Not Detect); Candida tropicalis by PCR Not Detected (Not Detect); Klebsiella oxytoca by PCR Not Detected (Not Detect); Klebsiella pneumoniae by PCR Not Detected (Not Detect); Proteus by PCR Not Detected (Not Detect); Pseudomonas aeruginosa by PCR Not Detected (Not Detect); Serratia marcescens by PCR Not Detected (Not Detect)
[2019-04-06] MEDS: risperiDONE 1 MG TABLET PO SCH (20:40)
[2019-04-06] MEDS: traZODone 50 MG TABLET PO SCH (20:41)
[2019-04-06] MEDS: Budesonide/Formoterol 80/4.5 1 PUFF INH IH SCH (22:08)
[2019-04-07 02:37] LABS: ABG Base Excess -1 mEq/L (-2 to 3); ABG HCO3 30 mEq/L (21-27); ABG Oxygen Saturation 95 % (95-98); ABG PCO2 78 mmHg (35-45); ABG PH 7.19 pH Units (7.32-7.45); ABG PO2 96 mmHg (85-104); ABG TCO2 32 mEq/L (20-26)
[2019-04-07] MEDS ORDERED: Isovue-370 500 ML BOTTLE IVP ONE (02:50)
[2019-04-07 03:23] LABS: Mean Corpuscular Volume 103.5 fL (83.0-100.0)
[2019-04-07 03:25] LABS: Hematocrit 35.2 % (35.3-44.9); Hemoglobin 11.6 g/dL (11.5-15.4); Immature Platelets 2.6 % (1.1-6.1); Mean Corpuscular Hemoglobin 34.1 pg (28.0-33.3); Mean Platelet Volume 10.9 fL (9.4-12.4); Red Blood Count 3.4 M/mcL (3.82-4.97); Red Cell Distribution Width 14.3 % (11.5-14.5); White Blood Count 6.5 K/mcL (4.3-11.1)
[2019-04-07 03:46] LABS: Albumin 3.5 g/dL (3.5-5.7); Albumin/Globulin Ratio 1.3 (1.1-2.2); BUN/Creatinine Ratio 35 (6-26); Bilirubin,Direct 0.3 mg/dL (0.0-0.2); Bilirubin,Indirect 0.6 mg/dL (0.0-1.2); Bilirubin,Total 0.9 mg/dL (0.3-1.0); Blood Urea Nitrogen 15 mg/dL (8-23); Calcium 8.5 mg/dL (8.6-10.3); Carbon Dioxide 26 mEq/L (23-29); Chloride 106 mEq/L (98-107); Globulin 2.6 g/dL (2.4-3.5); Glucose 233 mg/dL (70-105); Osmolality,Calculated 296 (280-300); Potassium 3.8 mEq/L (3.5-5.1); Sodium 139 mEq/L (136-145); Total Protein 6.1 g/dL (6.4-8.9); eGFR For African Americans > 60 (> 60); eGFR For Non-African Americans > 60 (> 60)
[2019-04-07] MEDS ORDERED: Acetaminophen 325 MG TABLET PO PRN (04:11)
--- NOTE | 2019-04-07 04:13 | Event Note ---
Date of Encounter: 04/07/19 Time of Encounter: 02:20 Patient had sudden onset of shortness of breath and decreased responsiveness. Stat chest x-ray and ABG ordered. Patient had elevated CO2 level of 78 and was started on bipap. Chest x-ray showed worsening pulmonary edema. Patient has also been spiking fevers as well. Stat blood cultures ordered, and antibiotics were broadened as well. CTA ordered, and results pending at this time. Patient improved with BiPAP application. We will continue to monitor. Ice packs and tylenol for fever.
[2019-04-07] MEDS: Ipratropium/Albuterol Neb 3 ML IH SCH ×4 (04:16→22:01)
[2019-04-07] MEDS ORDERED: Acetaminophen IV 500 MG/50 ML INFUS..BTL IVPB ONE (04:28)
[2019-04-07] MEDS ORDERED: Furosemide 20 MG/2 ML VIAL IVP ONE (05:17)
[2019-04-07 06:12] LABS: ABG Base Excess 1 mEq/L (-2 to 3); ABG HCO3 27 mEq/L (21-27); ABG Oxygen Saturation 99 % (95-98); ABG PCO2 48 mmHg (35-45); ABG PH 7.36 pH Units (7.32-7.45); ABG PO2 142 mmHg (85-104); ABG TCO2 28 mEq/L (20-26); Blood Gas Modality BiLevel; Blood Gas PEEP 6 cm H2O
[2019-04-07] MEDS: Cefepime HCl 2,000 MG in Water for inj. (sterile) 20 ML IVP SCH ×2 (06:13→17:39)
--- NOTE | 2019-04-07 07:44 | Electrocardiograph Report ---
[facility] Test Date: 2019-04-05 Pat Name: Alyssa Isabel Department: [id number] Room: 2A13 Gender: F Principal Product Manager: : [id number] Requested By: Gerry Bowman Order Number: [id number] Reading MD: Hiro Hopson Measurements Intervals [place] Rate: 124 P: -13 NH: 122 QRS: -40 QRSD: 130 T: 135 QT: 323 QTc: 464 Interpretive Statements Sinus tachycardia Left bundle branch block Electronically Signed On 04-07-2019 7:42:36 EDT by Hiro Hopson
[2019-04-07] MEDS: Insulin LISPRO 300 UNITS/3 ML VIAL SQ SCH ×4 (08:21→22:20)
[2019-04-07] MEDS: Clindamycin 600 MG/50 ML 600 MG/50 ML IV.SOLN IVPB SCH ×2 (08:22→16:53)
--- NOTE | 2019-04-07 08:30 | Internal Med Progress Note ---
Hospitalist Progress Note - Encounter Date of Encounter: 04/07/19 Time of Encounter: 08:29 - Subjective Interval History: Patient seen and examined this morning with. Overnight events noted. Patient on BiPAP this morning. ABG improved after dose of Lasix and BiPAP. Able to tolerate off BiPAP. Noted some facial asymmetry by nurse after BiPAP was taken out and reported some speaking difficulties. Having some headache. Denies any other weakness. Had fevers overnight. Denies any chest pain. Breathing improved. - Exam Vitals: Temp Pulse Resp BP Pulse Ox 100.0 F H 98 22 145/85 92 04/07/19 06:59 04/07/19 06:59 04/07/19 06:59 04/07/19 06:59 04/07/19 06:59 Exam: General: In no acute distress. Obese Respiratory exam: no accessory muscle use. crackles at base. Cardiovascular exam: RRR, +S1, +S2. no murmur, gallop, rubs. GI/Abdominal exam: Non-tender, Non-distended, normal bowel sounds, soft, no peritoneal signs. Extremities exam: no pedal edema, pulses palpable in b/l lower extremities. no calf tenderness Neurological exam: AO X2, no pronator drift, Lt sided facial asymmetry. No appreciable other weakness. Skin exam: No skin rash - Assessment and Plan (1) COPD (chronic obstructive pulmonary disease) Current Visit: No Status: Chronic (2) Diabetes mellitus Current Visit: No Status: Chronic (3) DVT prophylaxis Current Visit: No Status: Acute (4) TIA (transient ischemic attack) Current Visit: No Status: Acute (5) Sepsis Current Visit: Yes Status: Acute (6) Urinary tract infection Current Visit: Yes Status: Acute (7) Cirrhosis Current Visit: Yes Status: Acute - Summary of Assessment and Plan Summary of Assessment and Plan: Assessment Acute Sepsis suspected TIA possible UTI GNR bacteremia acute on chronic hypoxic and hypercpanic respiratory failure respiratory acidosis. Chronic COPD DM Cirrhosis Plan - Antibiotics broadened overnight. continue vancomycin, clindamycin and cefepime until urine and blood cultures finalize. F/u repeat cultures. GNR in urine and Blood on prelim report. Will descalate by tomorrow if afebrile. . - CTA negative for PE. signs of fluid overload. However received appropriate fluid for sepsis. lactate normalized. f/u limited ECHO - Patient had some complains suspcious of TIA. CT was unremarkable. Had Lt sided facial sysmmetry which was noticed in December for similar complaints. Patient report being not new but is not completely reliable. She is out of window for any thrombolytics however will get MRI given carotid showed 40-49% stenosis on Lt in December. f/u PT/OT. - c/w prn bipap and bronchodilators. Will dose lasix again later today. Likely related to fluid overload. - accuchecks and SSI with diabetic diet. - SCDs for dvt ppx - Time Spent with Patient Total time spent is greater than 50% in coordination of care (as documented) at patient's floor/unit and/or counseling patient: Internal Medicine: Result - Labs CBC & Chem 7: 04/07/19 03:17 04/07/19 03:17 Labs: Short CBC 04/07/19 Range/Units 03:17 WBC 6.5 (4.3-11.1) K/mcL Hgb 11.6 (11.5-15.4) g/dL Hct 35.2 L (35.3-44.9) % Plt Count 75 L (140-400) K/mcL BMP 04/07/19 03:17 Sodium 139 Potassium 3.8 Chloride 106 Carbon Dioxide 26 BUN 15 Creatinine 0.43 L Glucose 233 H Calcium 8.5 L Liver Function 04/07/19 Range/Units 03:17 Total Bilirubin 0.9 (0.3-1.0) mg/dL Direct Bilirubin 0.3 H (0.0-0.2) mg/dL AST 25 (13-39) Units/L ALT 26 (7-52) Units/L Alkaline Phosphatase 86 (34-104) Units/L Albumin 3.5 (3.5-5.7) g/dL - ABG Interpretation ABG results: ABG ABG pH 7.36 pH Units (7.32-7.45) D 04/07/19 06:09 ABG pCO2 48 mmHg (35-45) H D 04/07/19 06:09 ABG pO2 142 mmHg (85-104) H D 04/07/19 06:09 ABG O2 Saturation 99 % (95-98) H 04/07/19 06:09 PT/INR, D-dimer PT 14.4 Seconds (9.4-12.1) H 04/05/19 19:44 - Impressions Impressions Chest X-Ray 04/07/19 02:11 IMPRESSION: Worsening pulmonary edema. Equivocal for small effusions. D/ / Michael Vidal / Michael Vidal Interpreting Provider: Michael Vidal Chest CTA 04/07/19 02:50 IMPRESSION: Negative for acute pulmonary embolism to the proximal subsegmental level. Features of heart failure manifesting as bilateral pleural effusions with interstitial and alveolar pulmonary edema, new since 04/05/2019. Difficult to exclude superimposed airspace disease within atelectatic lung given phase of contrast. Liver cirrhosis with features of portal venous hypertension. D/ / Michael Vidal / Michael Vidal Interpreting Provider: Michael Vidal - VTE Documentation of Mechanical Device: Graduated compression elastic hosiery Consult Discharge Plan - Plan Referrals: Amy Walden MD [Primary Care Provider] - __ (1) COPD (chronic obstructive pulmonary disease) Qualifiers: COPD type: unspecified COPD Qualified Code(s): J44.9 - Chronic obstructive pulmonary disease, unspecified (2) Diabetes mellitus Qualifiers: Diabetes mellitus type: type 2 Diabetes mellitus snf insulin use: without terminal make up operator use Diabetes mellitus complication status: without complication Qualified Code(s): E11.9 - Type 2 diabetes mellitus without complications (5) Sepsis Qualifiers: Sepsis type: sepsis due to unspecified organism Acute renal failure type: unspecified Severe sepsis shock status: without septic shock (6) Urinary tract infection Qualifiers: Urinary tract infection type: site unspecified Hematuria presence: with hematuria Qualified Code(s): N39.0 - Urinary tract infection, site not specified; R31.9 - Hematuria, unspecified (7) Cirrhosis Qualifiers: Hepatic cirrhosis type: unspecified hepatic cirrhosis Ascites presence: unspecified Qualified Code(s): K74.60 - Unspecified cirrhosis of liver
[2019-04-07] MEDS ORDERED: Perflutren Lipid Microsphere 1.3 ML in 0.9 % Sodium Chloride 8.7 ML IVP ONE (09:16)
[2019-04-07] MEDS ORDERED: Aminoglycoside Consult 1 EACH MC ONE (10:10)
[2019-04-07] MEDS: Budesonide/Formoterol 80/4.5 1 PUFF INH IH SCH ×2 (10:54→22:02)
[2019-04-07] MEDS: Ibuprofen 400 MG TABLET PO PRN (14:48)
[2019-04-07] MEDS: risperiDONE 1 MG TABLET PO SCH (22:20)
[2019-04-07] MEDS: traZODone 50 MG TABLET PO SCH (22:20)
[2019-04-08] MEDS: Clindamycin 600 MG/50 ML 600 MG/50 ML IV.SOLN IVPB SCH ×2 (00:24→08:40)
[2019-04-08] MEDS: Ipratropium/Albuterol Neb 3 ML IH SCH ×4 (04:02→21:27)
[2019-04-08] MEDS: Ibuprofen 400 MG TABLET PO PRN (06:05)
[2019-04-08] MEDS: Cefepime HCl 2,000 MG in Water for inj. (sterile) 20 ML IVP SCH (06:06)
[2019-04-08] MEDS: Insulin LISPRO 300 UNITS/3 ML VIAL SQ SCH ×4 (08:40→20:59)
--- NOTE | 2019-04-08 09:14 | Internal Med Progress Note ---
Hospitalist Progress Note - Encounter Date of Encounter: 04/08/19 Time of Encounter: 09:14 - Subjective Interval History: Patient seen and examined this morning at bedside. No acute overnight events. Had low-grade fever. Breathing much better off BiPAP this morning. - Exam Vitals: Temp Pulse Resp BP Pulse Ox 100.3 F H 91 26 147/84 97 04/08/19 07:20 04/08/19 07:20 04/08/19 07:20 04/08/19 07:20 04/08/19 07:20 Exam: General: In no acute distress. Obese Respiratory exam: no accessory muscle use. minimal crackles at base. Cardiovascular exam: RRR, +S1, +S2. no murmur, gallop, rubs. GI/Abdominal exam: Non-tender, Non-distended, normal bowel sounds, soft, no peritoneal signs. Extremities exam: no pedal edema, pulses palpable in b/l lower extremities. no calf tenderness Neurological exam: AO X2, no pronator drift, Lt sided facial asymmetry. No appreciable other weakness. Skin exam: No skin rash - Assessment and Plan (1) COPD (chronic obstructive pulmonary disease) Current Visit: No Status: Chronic (2) Diabetes mellitus Current Visit: No Status: Chronic (3) DVT prophylaxis Current Visit: No Status: Acute (4) TIA (transient ischemic attack) Current Visit: No Status: Acute (5) Sepsis Current Visit: Yes Status: Acute (6) Urinary tract infection Current Visit: Yes Status: Acute (7) Cirrhosis Current Visit: Yes Status: Acute - Summary of Assessment and Plan Summary of Assessment and Plan: Assessment Acute Sepsis suspected TIA possible UTI GNR bacteremia acute on chronic hypoxic and hypercpanic respiratory failure respiratory acidosis. Chronic COPD DM Cirrhosis Plan - stop vancomycin as MRSA negative. c/w clindamycin and cefepime until urine and blood cultures finalize. F/u repeat cultures. GNR in urine and Blood on prelim report. - CTA negative for PE. signs of fluid overload. However received appropriate fluid for sepsis. lactate normalized. limited ECHO with EF 60%, normal WM, mild LVH. - MRI negative for any acute stroke. PT/OT with home health - c/w prn bipap and bronchodilators. Will dose lasix again today. Likely related to fluid overload. - accuchecks and SSI with diabetic diet. - SCDs for dvt ppx - Time Spent with Patient Total time spent is greater than 50% in coordination of care (as documented) at patient's floor/unit and/or counseling patient: Internal Medicine: Result - Labs CBC & Chem 7: 04/07/19 03:17 04/07/19 03:17 - ABG Interpretation ABG results: ABG ABG pH 7.36 pH Units (7.32-7.45) D 04/07/19 06:09 ABG pCO2 48 mmHg (35-45) H D 04/07/19 06:09 ABG pO2 142 mmHg (85-104) H D 04/07/19 06:09 ABG O2 Saturation 99 % (95-98) H 04/07/19 06:09 PT/INR, D-dimer PT 14.4 Seconds (9.4-12.1) H 04/05/19 19:44 - Impressions Impressions Echocardiogram Limited Views 04/07/19 05:18 Impressions: LVEF 60%. Mild concentric left ventricular hypertrophy. Mildly dilated right ventricle with normal function. Left Ventricular Wall Motion: Rest Echo Findings All wall segments showed normal motion. Findings: Study Quality * Technically adequate exam. ECG Findings * Sinus rhythm with BBB. * Sinus tachycardia. Left Ventricle * LVEF 60%. * Normal LV chamber size and systolic function. * Mild concentric left ventricular hypertrophy. * There is no LV thrombus. * Atypical septal motion consistent with bundle branch block. Right Ventricle * Mildly dilated right ventricle with normal function. Tricuspid Valve * Tricuspid valve not well visualized. * Mild tricuspid regurgitation. * Estimated RV-RA gradient 35 mmHg. * Unable to estimate RVSP due to lack of IVC visualization. * Probable mild pulmonary hypertension. Brain MRI 04/07/19 10:24 IMPRESSION: No acute intracranial abnormality. Stable moderate cerebral white matter disease. D/ / Dung Bradford MD / Dung Bradford MD Interpreting Provider: Dung Bradford MD - VTE Documentation of Mechanical Device: Graduated compression elastic hosiery Consult Discharge Plan - Plan Referrals: Amy Walden MD [Primary Care Provider] - (1) COPD (chronic obstructive pulmonary disease) Qualifiers: COPD type: unspecified COPD Qualified Code(s): J44.9 - Chronic obstructive pulmonary disease, unspecified (2) Diabetes mellitus Qualifiers: Diabetes mellitus type: type 2 Diabetes mellitus fpc insulin use: without fpc use Diabetes mellitus complication status: without complication Qualified Code(s): E11.9 - Type 2 diabetes mellitus without complications (5) Sepsis Qualifiers: Sepsis type: sepsis due to unspecified organism Acute renal failure type: unspecified Severe sepsis shock status: without septic shock (6) Urinary tract infection Qualifiers: Urinary tract infection type: site unspecified Hematuria presence: with hematuria Qualified Code(s): N39.0 - Urinary tract infection, site not specified; R31.9 - Hematuria, unspecified (7) Cirrhosis Qualifiers: Hepatic cirrhosis type: unspecified hepatic cirrhosis Ascites presence: unspecified Qualified Code(s): K74.60 - Unspecified cirrhosis of liver
[2019-04-08] MEDS: Budesonide/Formoterol 80/4.5 1 PUFF INH IH SCH ×2 (11:33→21:24)
[2019-04-08] MEDS ORDERED: Furosemide 20 MG TABLET PO ONE (15:06)
[2019-04-08] MEDS: cefTRIAXone 1,000 MG in Water for inj. (sterile) 10 ML IVP SCH (16:17)
[2019-04-08] MEDS: traZODone 50 MG TABLET PO SCH (20:58)
[2019-04-08] MEDS: risperiDONE 1 MG TABLET PO SCH (20:59)
[2019-04-09] MEDS: Ipratropium/Albuterol Neb 3 ML IH SCH ×4 (04:07→22:34)
[2019-04-09] MEDS ORDERED: cefTRIAXone 1,000 MG in Water for inj. (sterile) 10 ML IVP SCH (09:00)
[2019-04-09] MEDS: Budesonide/Formoterol 80/4.5 1 PUFF INH IH SCH ×2 (09:22→22:33)
[2019-04-09] MEDS: cefTRIAXone 1,000 MG in Water for inj. (sterile) 10 ML IVP SCH (09:25)
[2019-04-09] MEDS: Insulin LISPRO 300 UNITS/3 ML VIAL SQ SCH ×4 (09:26→20:44)
[2019-04-09] MEDS: Ibuprofen 400 MG TABLET PO PRN (10:48)
--- NOTE | 2019-04-09 11:56 | Internal Med Progress Note ---
Hospitalist Progress Note - Encounter Date of Encounter: 04/09/19 Time of Encounter: 11:56 - Subjective Interval History: Patient seen and examined this morning at bedside. No acute overnight events. Denies new complaints. Having breakfast. Denies any chest pain difficulty breathing abdominal pain nausea vomiting or diarrhea. Has Carvalho catheter in place. Denies any difficulty and bleeding. - Exam Vitals: Temp Pulse Resp BP Pulse Ox 98.1 F 79 17 144/75 90 04/09/19 11:19 04/09/19 11:19 04/09/19 11:19 04/09/19 11:04/09/19 11:19 Exam: General: In no acute distress. Obese Respiratory exam: no accessory muscle use. Cardiovascular exam: RRR, +S1, +S2. no murmur, gallop, rubs. GI/Abdominal exam: Non-tender, Non-distended, normal bowel sounds, soft, no peritoneal signs. carvalho in place Extremities exam: no pedal edema, pulses palpable in b/l lower extremities. no calf tenderness Neurological exam: AO X2, no pronator drift, Lt sided facial asymmetry. ambulating well. - Assessment and Plan (1) COPD (chronic obstructive pulmonary disease) Current Visit: No Status: Chronic (2) Diabetes mellitus Current Visit: No Status: Chronic (3) DVT prophylaxis Current Visit: No Status: Acute (4) TIA (transient ischemic attack) Current Visit: No Status: Acute (5) Sepsis Current Visit: Yes Status: Acute (6) Urinary tract infection Current Visit: Yes Status: Acute (7) Cirrhosis Current Visit: Yes Status: Acute - Summary of Assessment and Plan Summary of Assessment and Plan: Assessment Acute Sepsis-resolved suspected TIA UTI Ecoli bacteremia acute on chronic hypoxic and hypercpanic respiratory failure respiratory acidosis. fluid overload Chronic COPD DM Cirrhosis Plan - c/w ceftriaxone. Will treat for 12 days on discharge. blood and urine and blood cultures finalize. repeat blood cultures pending. - CTA negative for PE. signs of fluid overload. However received appropriate fluid for sepsis. lactate normalized. limited ECHO with EF 60%, normal WM, mild LVH. respiratory status improved with gentle diuresis - MRI negative for any acute stroke. PT/OT with home health - c/w prn bipap and bronchodilators. - accuchecks and SSI with diabetic diet. - Patient will need overnight Bipap study to arrange for home. - SCDs for dvt ppx - Time Spent with Patient Total time spent is greater than 50% in coordination of care (as documented) at patient's floor/unit and/or counseling patient: Internal Medicine: Result - Labs CBC & Chem 7: 04/07/19 03:17 04/07/19 03:17 - ABG Interpretation ABG results: ABG ABG pH 7.36 pH Units (7.32-7.45) D 04/07/19 06:09 ABG pCO2 48 mmHg (35-45) H D 04/07/19 06:09 ABG pO2 142 mmHg (85-104) H D 04/07/19 06:09 ABG O2 Saturation 99 % (95-98) H 04/07/19 06:09 PT/INR, D-dimer PT 14.4 Seconds (9.4-12.1) H 04/05/19 19:44 - VTE Documentation of Mechanical Device: Graduated compression elastic hosiery Consult Discharge Plan - Plan Referrals: Amy Walden MD [Primary Care Provider] - ___ (1) COPD (chronic obstructive pulmonary disease) Qualifiers: COPD type: unspecified COPD Qualified Code(s): J44.9 - Chronic obstructive pulmonary disease, unspecified (2) Diabetes mellitus Qualifiers: Diabetes mellitus type: type 2 Diabetes mellitus oysterman insulin use: without skilled nursing use Diabetes mellitus complication status: without com plication Qualified Code(s): E11.9 - Type 2 diabetes mellitus without comp lications (5) Sepsis Qualifiers: Sepsis type: sepsis due to unspecified organism Acute renal failure type: unspecified Severe sepsis shock status: without septic shock (6) Urinary tract infection Qualifiers: Urinary tract infection type: site unspecified Hematuria presence: with hematuria Qualified Code(s): N39.0 - Urinary tract infection, site not specified; R31.9 - Hematuria, unspecified (7) Cirrhosis Qualifiers: Hepatic cirrhosis type: unspecified hepatic cirrhosis Ascites presence: unspecified Qualified Code(s): K74.60 - Unspecified cirrhosis of liver
[2019-04-09] MEDS: risperiDONE 1 MG TABLET PO SCH (20:27)
[2019-04-09] MEDS: traZODone 50 MG TABLET PO SCH (20:28)
[2019-04-10] MEDS: Ipratropium/Albuterol Neb 3 ML IH SCH ×2 (05:43→10:09)
[2019-04-10] MEDS: Insulin LISPRO 300 UNITS/3 ML VIAL SQ SCH ×2 (08:59→13:23)
[2019-04-10] MEDS: cefTRIAXone 1,000 MG in Water for inj. (sterile) 10 ML IVP SCH (09:00)
[2019-04-10] MEDS: Budesonide/Formoterol 80/4.5 1 PUFF INH IH SCH (10:10)
--- NOTE | 2019-04-10 10:48 | Discharge Summary ---
- NOTES TO OUTPATIENT PROVIDER Notes to Outpatient Provider: Patient discharged with Omnicef to finish 14 day course of antibiotics for UTI with bacteremia. Patient was also arrange for BiPAP and home oxygen. Orders not resulted at time of discharge: Pending orders 04/05/19 19:44 Culture,Blood [BC] Stat 04/07/19 03:07 Culture,Blood [BC] Stat Date of Encounter: 04/10/19 Time of Encounter: 10:45 - Discharge Diagnosis (1) COPD (chronic obstructive pulmonary disease) Priority: Secondary Status: Chronic Qualifiers: COPD type: unspecified COPD Qualified Code(s): J44.9 - Chronic obstructive pulmonary disease, unspecified (2) Diabetes mellitus Priority: Secondary Status: Chronic Qualifiers: Diabetes mellitus type: type 2 Diabetes mellitus jail insulin use: without exterminator helper use Diabetes mellitus complication status: without complication Qualified Code(s): E11.9 - Type 2 diabetes mellitus without complications (3) DVT prophylaxis Priority: Secondary Status: Acute (4) TIA (transient ischemic attack) Priority: Secondary Status: Acute (5) Sepsis Priority: Primary Status: Acute Qualifiers: Sepsis type: Escherichia coli Sepsis acute organ dysfunction status: without acute organ dysfunction Qualified Code(s): A41.51 - Sepsis due to Escherichia coli [E. coli] (6) Urinary tract infection Priority: Primary Status: Acute Qualifiers: Urinary tract infection type: site unspecified Hematuria presence: with hematuria Qualified Code(s): N39.0 - Urinary tract infection, site not specified; R31.9 - Hematuria, unspecified (7) Cirrhosis Priority: Secondary Status: Acute Qualifiers: Hepatic cirrhosis type: unspecified hepatic cirrhosis Ascites presence: unspecified Qualified Code(s): K74.60 - Unspecified cirrhosis of liver (8) Bacteremia due to Escherichia coli Priority: Primary Status: Acute (9) Acute diastolic CHF (congestive heart failure) Priority: Secondary Status: Acute (10) Facial droop Priority: Secondary Status: Acute (11) Obesity Priority: Secondary Status: Chronic Qualifiers: Obesity type: with alveolar hypoventilation Obesity classification: adult class 3 (BMI >= 40) Serious obesity comorbidity presence: without serious comorbidity Body mass index: BMI 40.0-44.9 Qualified Code(s): E66.2 - Morbid (severe) obesity with alveolar hypoventilation; Z68.41 - Body mass index (BMI) 40.0-44.9, adult (12) MAKSIM (obstructive sleep apnea) Priority: Secondary Status: Suspected Hospital course: Ms. Isabel is a 69 year old female with past medical history of COPD, diabetes, hypertension, cirrhosis came in with weakness and not feeling well with blackout spells and near syncope. Patient was found to have signs of sepsis on admission with elevated lactic acid with urine being primary source. Patient was started on empiric antibiotics. Head CT was unremarkable obtained given concern of TIA. She was given IV fluids for resuscitation. She improved clinically however did develop shortness of breath with ABG showing respiratory acidosis. She was put on BiPAP. She also had some signs of pulmonary edema and was diuresed. She improved on BiPAP. She also history of MAKSIM. Urinary grew Escherichia coli and one out of 2 blood cultures grew Escherichia coli. Antibiotics were adjusted based on cultures and sensitivity. She was qualified for BiPAP and oxygen. She is doing well and is ambulating without any difficulties. She stable to be discharged home to follow-up outpatient with PCP in 1-2 weeks. She will be discharged with Omnicef for 8 more days. Home clonidine has been stopped. Discharge discussed with: patient, nurse - Time Spent with Patient Total time spent providing and/or coordinating discharge services: Time spent: Greater than 30 minutes (40) - Discharge Medications Prescriptions: New Cefdinir [Omnicef] 300 mg PO BID 8 Days #16 capsule Continued Trospium Chloride 20 mg PO HS SitaGLIPtin [Januvia] 100 mg PO DAILY risperiDONE [Risperidone] 4 mg PO HS Quetiapine Fumarate [Seroquel] 300 mg PO HS Omeprazole [PriLOSEC] 20 mg PO DAILY metFORMIN [Glucophage] 1,000 mg PO QPM metFORMIN [Glucophage] 1,500 mg PO QAM Clopidogrel [Plavix] 75 mg PO DAILY Colesevelam [Welchol] 625 mg PO DAILY PRN PRN Reason: Diarrhea Nadolol 20 mg PO HS Fluticasone/Salmeterol [Advair Hfa 115-21 Mcg Inhaler] 2 puff IH HS [place]-3/Dha/Epa/Fish Oil [Fish Oil 1,000 mg Softgel] 2 each PO BID Trazodone HCl 100 mg PO HS Atorvastatin Calcium 80 mg PO HS Glimepiride [Amaryl] 4 mg PO BID Albuterol Sulfate [Proair Hfa] 2 puff IH Q6H PRN PRN Reason: Shortness Of Breath Amantadine [Symmetrel] 100 mg PO DAILY Discontinued cloNIDine HCl [CloNIDine HCl] 0.1 mg PO DAILY Home Medications: Clopidogrel [Plavix] 75 mg PO DAILY 12/14/17 [History] Omeprazole [PriLOSEC] 20 mg PO DAILY 12/14/17 [History] Quetiapine Fumarate [Seroquel] 300 mg PO HS 12/14/17 [History] SitaGLIPtin [Januvia] 100 mg PO DAILY 12/14/17 [History] Trospium Chloride 20 mg PO HS 12/14/17 [History] metFORMIN [Glucophage] 1,000 mg PO QPM 12/14/17 [History] metFORMIN [Glucophage] 1,500 mg PO QAM 12/14/17 [History] risperiDONE [Risperidone] 4 mg PO HS 12/14/17 [History] Colesevelam [Welchol] 625 mg PO DAILY PRN 11/27/18 [History] Fluticasone/Salmeterol [Advair Hfa 115-21 Mcg Inhaler] 2 puff IH HS 11/27/18 [History] Nadolol 20 mg PO HS 11/27/18 [History] [place]-3/Dha/Epa/Fish Oil [Fish Oil 1,000 mg Softgel] 2 each PO BID 11/27/18 [History] Atorvastatin Calcium 80 mg PO HS 01/04/19 [History] Glimepiride [Amaryl] 4 mg PO BID 01/04/19 [History] Trazodone HCl 100 mg PO HS 01/04/19 [History] Albuterol Sulfate [Proair Hfa] 2 puff IH Q6H PRN 04/05/19 [History] Amantadine [Symmetrel] 100 mg PO DAILY 04/05/19 [History] Cefdinir [Omnicef] 300 mg PO BID 8 Days #16 capsule 04/10/19 [Rx] Allergies/Adverse Reactions: Allergy/AdvReac Type Severity Reaction Status Date / Time codeine Allergy Swelling Verified 04/05/19 21:03 Penicillins Allergy Swelling Verified 04/05/19 21:03 of Face Date of admission: 04/06/19 13:57 Primary care physician: Amy Walden Consults: 04/06/19 00:02 Consult to Nurse Navigator [CONS] Routine Comment: 04/06/19 13:56 Consult to Occupational Therapy [CONS] Routine Comment: Evaluate, develop and implement POC Reason for Consult: eval for poss ecf per dr Does patient have active BEDREST order?: No Is patient medically & hemodynamically stable?: Yes Consult to Physical Therapy [CONS] Routine Comment: Evaluate, develop and implement POC Reason for Consult: eval for poss ecf per dr Does patient have active BEDREST order?: No Is patient medically & hemodynamically stable?: Yes Discharging clinician: Yahaira Joyce - Constitutional Vitals: Temp Pulse Resp BP Pulse Ox 98.1 F 74 16 127/75 95 04/10/19 07:35 04/10/19 07:35 04/10/19 10:10 04/10/19 07:35 04/10/19 10:10 Exam: General: In no acute distress. Obese Respiratory exam: no accessory muscle use. Cardiovascular exam: RRR, +S1, +S2. no murmur, gallop, rubs. GI/Abdominal exam: Non-tender, Non-distended, normal bowel sounds, soft, no peritoneal signs. Extremities exam: no pedal edema, pulses palpable in b/l lower extremities. no calf tenderness Neurological exam: AO X3, no pronator drift, Lt sided facial asymmetry. ambulating well. - Patient Status Disposition: Home Health Service Condition: Fair - Discharge Instructions Follow Up With: Amy Walden MD [Primary Care Provider] - - Diet and Activity Activity: as per physical therapy - VTE Documentation of Mechanical Device: Graduated compression elastic hosiery
[2019-04-10 11:54] VITALS: BP 144/82
== END 2019-04-10 15:18 | disposition home health service (06) | DRG 871 ==
LOC: EMEROOARM 19:31 → 2ANU 19:31 → SUATTDRO 04-06 13:57 → 2ANU 04-07 20:56
PROVIDERS: ADMIT Internal Medicine; ATTEND Internal Medicine

== ENCOUNTER 2019-05-10 18:09 | Inpatient (IN) ==
[2019-05-10] MEDS ORDERED: Isovue-370 500 ML BOTTLE IVP ONE ×2 (18:10→18:13)
[2019-05-10] MEDS ORDERED: 0.9 % Sodium Chloride 1,000 ML IVC ONE (18:12)
[2019-05-10 18:19] LABS: Hemoglobin 11.4 g/dL (11.5-15.4)
[2019-05-10 18:21] LABS: Hematocrit 34.4 % (35.3-44.9); Mean Corpuscular HGB Conc 33.1 g/dL (31.6-35.5); Mean Corpuscular Hemoglobin 33.6 pg (28.0-33.3); Mean Corpuscular Volume 101.5 fL (83.0-100.0); Mean Platelet Volume 9.9 fL (9.4-12.4); Red Blood Count 3.39 M/mcL (3.82-4.97); Red Cell Distribution Width 13.6 % (11.5-14.5); White Blood Count 8.4 K/mcL (4.3-11.1)
--- NOTE | 2019-05-10 18:21 | Emergency Department Note ---
Disposition Clinical Impression: Altered level of consciousness, Fever, Encounter for lumbar puncture Disposition: Admitted As Inpatient Condition: Fair Time of Disposition: 20:56 Neuro HPI - General Chief Complaint: ED Neuro Symptoms/Deficit Stated Complaint: Stroke Time Seen by Provider: 05/10/19 18:10 Source: family Mode of arrival: wheelchair Limitations: altered mental status Nursing Notes Reviewed: Yes Vital Signs Reviewed: Yes - History of Present Illness HPI Narrative: Ms. Isabel is a 69 yo F with PMH of DM, HTN, COPD, and cirrhosis, resulting in the emergency department via wheelchair from a medical assist at Dr. Chow's office. reports that she went to the restroom, and he had noticed some stool on the floor, but the patient did not remember going to the bathroom. Then when she was walking out she was limping and leaning backward. She did fall backwards hitting the right side of her head. She is on Plavix. Nursing staff reports that she was also dribbling urine. She is drowsy but not oriented upon presentation. denies any evidence of shaking. He reports that last known well was around 1710. He reports a mild left facial droop that is not abno rmal for her, and she always seems weaker on her left side. reports she has been urinating a lot more than normal lately. She was recently admitted 04/10/19 for E. coli bacteremia. - Related Data Home Medications: Home Medications Medication Instructions Recorded Confirmed Clopidogrel [Plavix] 75 mg PO DAILY 12/14/17 05/10/19 Omeprazole [PriLOSEC] 20 mg PO DAILY 12/14/17 05/10/19 Quetiapine Fumarate [Seroquel] 300 mg PO HS 12/14/17 05/10/19 SitaGLIPtin [Januvia] 100 mg PO DAILY 12/14/17 05/10/19 Trospium Chloride 20 mg PO HS 12/14/17 05/10/19 metFORMIN [Glucophage] 1,000 mg PO QPM 12/14/17 05/10/19 metFORMIN [Glucophage] 1,500 mg PO QAM 12/14/17 05/10/19 risperiDONE [Risperidone] 4 mg PO HS 12/14/17 05/10/19 Nadolol 20 mg PO HS 11/27/18 05/10/19 [place]-3/Dha/Epa/Fish Oil [Fish Oil 2 each PO BID 11/27/18 05/10/19 1,000 mg Softgel] Atorvastatin Calcium 80 mg PO HS 01/04/19 05/10/19 Glimepiride [Amaryl] 4 mg PO BID 01/04/19 05/10/19 Trazodone HCl 100 mg PO HS 01/04/19 05/10/19 Albuterol Sulfate [Proair Hfa] 2 puff IH Q6H PRN 04/05/19 05/10/19 Amantadine [Symmetrel] 100 mg PO DAILY 04/05/19 05/10/19 Allergies/Adverse Reactions: Allergies Allergy/AdvReac Type Severity Reaction Status Date / Time codeine Allergy Swelling Verified 04/05/19 21:03 Penicillins Allergy Swelling Verified 04/05/19 21:03 of Face Limitations: ROS unobtainable due to patients medical condition Past Medical History - Past Medical History Medical history: Reports: arthritis, asthma, COPD, diabetes, GERD, hyperlipidemia, hypertension, liver disease Surgical history: Reports: appendectomy, cholecystectomy, orthopedic, other Psychiatric history: Reports: no psych history - Social History Smoking Status: Never smoker Smokeless Tobacco Status: No Alcohol use: Reports: none Drug use: Reports: none Physical Exam GEN: No acute distress, alert, oriented to self only, patient is drowsy and not answering questions well HEAD: Atraumatic, normocephalic EYES: PERRL, sclera white, conjunctiva pink HEART: RRR, systolic murmur LUNGS: Clear to auscultation bilaterally, no wheezes, rhonchi, or crackles ABD: Soft, nontender, mild distention, no guarding or rigidity EXT: No edema noted, pulses 2/4 NEURO: Mild left sided facial drooping, EOMI, no nystagmus, sensation to light touch intact throughout, drift of left arm and bilateral legs on NIHSS initially, able to squeeze hands symmetrically, no nuchal rigidity Course Vital Signs Temperature 103.1 F H 05/10/19 18:11 Pulse Rate 106 05/10/19 18:11 O2 Sat by Pulse Oximetry 97 05/10/19 18:11 Temperature 103.7 F H 05/10/19 20:14 Pulse Rate 109 05/10/19 21:16 Respiratory Rate 18 05/10/19 18:13 Blood Pressure 162/96 09/12/19 21:16 O2 Sat by Pulse Oximetry 94 05/10/19 21:16 Oxygen Delivery Oxygen Delivery Nasal Cannula Neuro Symptoms/Deficit - MDM Narrative Medical decision making narrative: Patient is in the emergency department a wheelchair with nursing staff. She is alert and oriented to self only. She appears drowsy and is not answering questions well. Last known well was around 1710. reports that she was acting like this several weeks ago when she had a UTI and bacteremia. He does report that she has been urinating frequently. Glucose is greater than 200. Temperature is elevated at 103.1, she is tachycardic at 106. EKG shows sinus tachycardia with a rate of 106 and left bundle-branch block. She has some left sided facial droop that the thinks may have been there in the past. Due to the left-sided facial drooping and drift of her extremities, stroke alert was called. [address] and she is already improving. Upon repeat neuro exam she has no drift of her extremities. She is alert and oriented to person and place. She is able to say that she is not having chest pain, dyspnea, cough, abdominal pain, pain in her neck, or pain in her extremities. 1855 [facility] neurology evaluation recommends against TPA. Now NIHSS is 1 for mild left sided facial droop. Recommend LP for evaluation of encephalitis/meningitis. Head CT shows no acute intracranial abnormality, but does comment on stable chronic changes. She has no nuchal rigidity. She is now alert and oriented to person, place, and month, but not to the situation. Patient remains febrile 103. Head and neck CTA are without acute findings. CXR with increased central opacity, but no obvious infiltrate. LP completed by the attending, please see his note for the procedure. UA shows leuk esterase and WBCs. There is no leukocytosis. BMP is unremarkable. Patient will be started on cefepime and vancomycin. She will be admitted for altered mental status and fever. Discussed the case with the admitting hospitalist, Dr. Davis, who is accepting of the admission. - Medical Records Medical records reviewed: Yes I reviewed the patient's medical records. - Lab Data Lab results reviewed: Yes I reviewed the patient's lab results. Result diagrams: 05/10/19 18:12 05/10/19 18:12 Lab Results 0905/10/19 05/10/19 Range/Units 18:12 18:12 18:12 WBC 8.4 (4.3-11.1) K/mcL RBC 3.39 L (3.82-4.97) M/mcL Hgb 11.4 L (11.5-15.4) g/dL Hct 34.4 L (35.3-44.9) % MCV 101.5 H (83.0-100.0) fL MCH 33.6 H (28.0-33.3) pg MCHC 33.1 (31.6-35.5) g/dL RDW 13.6 (11.5-14.5) % Plt Count 98 L (140-400) K/mcL MPV 9.9 (9.4-12.4) fL Immature Plt Fraction 2.0 (1.1-6.1) % PT 13.4 H (9.4-12.1) Seconds INR 1.2 APTT 29.6 (26.0-36.0) Seconds Sodium 134 L (136-145) mEq/L Potassium 4.2 (3.5-5.1) mEq/L Chloride 98 (98-107) mEq/L Carbon Dioxide 25 (23-29) mEq/L BUN 12 (8-23) mg/dL Creatinine 0.61 (0.60-1.20) mg/dL Est GFR ( Amer) > 60 (> 60) Est GFR (Non-Af Amer) > 60 (> 60) BUN/Creatinine Ratio 20 (6-26) Glucose 259 H (70-105) mg/dL POC Glucose (70-99) mg/dL Calculated Osmolality 287 (280-300) Lactic Acid (0.5-2.2) mmol/L Calcium 9.2 (8.6-10.3) mg/dL Troponin I 0.04 H* (< 0.04) ng/mL Urine Color (Yellow) Urine Clarity (Clear) Urine pH (5.0-8.0) pH Units Ur Specific [place] (1.010-1.025) Urine Protein (Neg-Trace) mg/dL Urine Glucose (UA) (Normal) mg/dL Urine Ketones (Negative) mg/dL Urine Blood (Negative) Urine Nitrite (Negative) Urine Bilirubin (Negative) Urine Urobilinogen (Normal) mg/dL Ur Leukocyte Esterase (Negative) Urine Microscopic RBC (0-3) per hpf Urine Microscopic WBC (0-3) per hpf Ur Squamous Epith Cells (None-Few) per lpf Urine Bacteria (None-Few) per hpf Hyaline Casts (None-Few) per lpf 05/10/19 05/10/19 05/10/19 Range/Units 18:19 19:05 19:32 WBC (4.3-11.1) K/mcL RBC (3.82-4.97) M/mcL Hgb (11.5-15.4) g/dL Hct (35.3-44.9) % MCV (83.0-100.0) fL MCH (28.0-33.3) pg MCHC (31.6-35.5) g/dL RDW (11.5-14.5) % Plt Count (140-400) K/mcL MPV (9.4-12.4) fL Immature Plt Fraction (1.1-6.1) % PT (9.4-12.1) Seconds INR APTT (26.0-36.0) Seconds Sodium (136-145) mEq/L Potassium (3.5-5.1) mEq/L Chloride (98-107) mEq/L Carbon Dioxide (23-29) mEq/L BUN (8-23) mg/dL Creatinine (0.60-1.20) mg/dL Est GFR ( Amer) (> 60) Est GFR (Non-Af Amer) (> 60) BUN/Creatinine Ratio (6-26) Glucose (70-105) mg/dL POC Glucose 263 H (70-99) mg/dL Calculated Osmolality (280-300) Lactic Acid 1.6 (0.5-2.2) mmol/L Calcium (8.6-10.3) mg/dL Troponin I (< 0.04) ng/mL Urine Color Yellow (Yellow) Urine Clarity Clear (Clear) Urine pH 7.0 (5.0-8.0) pH Units Ur Specific [place] > 1.030 H (1.010-1.025) Urine Protein 30 H (Neg-Trace) mg/dL Urine Glucose (UA) Normal (Normal) mg/dL Urine Ketones Negative (Negative) mg/dL Urine Blood Negative (Negative) Urine Nitrite Negative (Negative) Urine Bilirubin Negative (Negative) Urine Urobilinogen Normal (Normal) mg/dL Ur Leukocyte Esterase Small H (Negative) Urine Microscopic RBC 5-15 H (0-3) per hpf Urine Microscopic WBC 50-100 H (0-3) per hpf Ur Squamous Epith Cells Moderate H (None-Few) per lpf Urine Bacteria Few (None-Few) per hpf Hyaline Casts None Seen (None-Few) per lpf - Radiology Data Radiology results reviewed: Yes I reviewed the patient's radiology results. NIH Stroke Scale - Level of Consciousness LOC: Drowsy, but arousable - LOC Questions LOC Questions: Answers both incorrectly - LOC Commands LOC Commands: Performs both correctly - Best Gaze Best Gaze: Normal - Visual Visual: No visual loss - Facial Palsy Facial Palsy: Minor asymmetry on smiling, flattened nasolabial fold - Motor Arms Motor Arm-Left: Drift, does NOT hit bed Motor Arm-Right: No drift for 10 seconds - Motor Legs Motor Leg-Left: Drift, does NOT hit bed Motor Leg-Right: Drift, does NOT hit bed - Limb Ataxia Limb Ataxia: Normal, No Ataxia - Sensory Sensory: Normal - Best Language Best Language: No aphasia - Dysarthria Dysarthria: Mild, slurs some words - Extinction and Inattention Extinction and Inattention: Normal - NIHSS Total Score NIHSS Total Score: 8 TPA Checklist - LKW: 3-4.5 hrs Add. Warnings/Precautions Patient/family understanding: The patient/family members have been counseled and understood the risk, benefit, and alternatives of treatment.
[2019-05-10 18:33] LABS: INR 1.2; Prothrombin Time 13.4 Seconds (9.4-12.1)
[2019-05-10 18:36] LABS: Activated Partial Thrombo Time 29.6 Seconds (26.0-36.0)
[2019-05-10 18:37] LABS: BUN/Creatinine Ratio 20 (6-26); Blood Urea Nitrogen 12 mg/dL (8-23); Calcium 9.2 mg/dL (8.6-10.3); Carbon Dioxide 25 mEq/L (23-29); Chloride 98 mEq/L (98-107); Glucose 259 mg/dL (70-105); Osmolality,Calculated 287 (280-300); Potassium 4.2 mEq/L (3.5-5.1); Sodium 134 mEq/L (136-145); eGFR For African Americans > 60 (> 60); eGFR For Non-African Americans > 60 (> 60)
--- NOTE | 2019-05-10 18:42 | Emergency Department Note ---
Disposition Clinical Impression: Altered level of consciousness, Encounter for lumbar puncture Fever Qualifiers: Fever type: unspecified Qualified Code(s): R50.9 - Fever, unspecified Disposition: Admitted As Inpatient Condition: Fair Referrals: Amy Walden MD [Primary Care Provider] - Forms: ED Satisfaction Letter Time of Disposition: 20:45 General Adult HPI - General Chief complaint: ED Neuro Symptoms/Deficit Stated complaint: Stroke Time Seen by Provider: 05/10/19 18:10 Source: family Mode of arrival: wheelchair Limitations: altered mental status - Related Data Home Medications Medication Instructions Recorded Confirmed Clopidogrel [Plavix] 75 mg PO DAILY 12/14/17 05/10/19 Omeprazole [PriLOSEC] 20 mg PO DAILY 12/14/17 05/10/19 Quetiapine Fumarate [Seroquel] 300 mg PO HS 12/14/17 05/10/19 SitaGLIPtin [Januvia] 100 mg PO DAILY 12/14/17 05/10/19 Trospium Chloride 20 mg PO HS 12/14/17 05/10/19 metFORMIN [Glucophage] 1,000 mg PO QPM 12/14/17 05/10/19 metFORMIN [Glucophage] 1,500 mg PO QAM 12/14/17 05/10/19 risperiDONE [Risperidone] 4 mg PO HS 12/14/17 05/10/19 Nadolol 20 mg PO HS 11/27/18 05/10/19 Strong-3/Dha/Epa/Fish Oil [Fish Oil 2 each PO BID 11/27/18 05/10/19 1,000 mg Softgel] Atorvastatin Calcium 80 mg PO HS 01/04/19 05/10/19 Glimepiride [Amaryl] 4 mg PO BID 01/04/19 05/10/19 Trazodone HCl 100 mg PO HS 01/04/19 05/10/19 Albuterol Sulfate [Proair Hfa] 2 puff IH Q6H PRN 04/05/19 05/10/19 Amantadine [Symmetrel] 100 mg PO DAILY 04/05/19 05/10/19 Allergies Allergy/AdvReac Type Severity Reaction Status Date / Time codeine Allergy Swelling Verified 04/05/19 21:03 Penicillins Allergy Swelling Verified 04/05/19 21:03 of Face Past Medical History - Past Medical History Medical history: Reports: arthritis, asthma, COPD, diabetes, GERD, h yperlipidemia, hypertension, liver disease Surgical history: Reports: appendectomy, cholecystectomy, orthopedic, other Psychiatric history: Reports: no psych history - Social History Smoking Status: Never smoker Smokeless Tobacco Status: No Alcohol use: Reports: none Drug use: Reports: none Physical Exam - General Limitations: altered mental status Course Vital Signs Temperature 103.1 F H 05/10/19 18:11 Pulse Rate 106 05/10/19 18:11 O2 Sat by Pulse Oximetry 97 05/10/19 18:11 Temperature 103.7 F H 05/10/19 20:14 Pulse Rate 106 05/10/19 18:13 Respiratory Rate 18 05/10/19 18:13 Blood Pressure 152/83 05/10/19 18:13 O2 Sat by Pulse Oximetry 98 05/10/19 18:13 Oxygen Delivery Oxygen Delivery Nasal Cannula Medical Decision Making - Medical Records Medical records reviewed: Yes I reviewed the patient's medical records. - Lab Data Lab results reviewed: Yes I reviewed the patient's lab results. Result diagrams: 05/10/19 18:12 05/10/19 18:12 Lab Results 05/10/19 05/10/19 05/10/19 Range/Units 18:12 18:12 18:12 WBC 8.4 (4.3-11.1) K/mcL RBC 3.39 L (3.82-4.97) M/mcL Hgb 11.4 L (11.5-15.4) g/dL Hct 34.4 L (35.3-44.9) % MCV 101.5 H (83.0-100.0) fL MCH 33.6 H (28.0-33.3) pg MCHC 33.1 (31.6-35.5) g/dL RDW 13.6 (11.5-14.5) % Plt Count 98 L (140-400) K/mcL MPV 9.9 (9.4-12.4) fL Immature Plt Fraction 2.0 (1.1-6.1) % PT 13.4 H (9.4-12.1) Seconds INR 1.2 APTT 29.6 (26.0-36.0) Seconds Sodium 134 L (136-145) mEq/L Potassium 4.2 (3.5-5.1) mEq/L Chloride 98 (98-107) mEq/L Carbon Dioxide 25 (23-29) mEq/L BUN 12 (8-23) mg/dL Creatinine 0.61 (0.60-1.20) mg/dL Est GFR ( Amer) > 60 (> 60) Est GFR (Non-Af Amer) > 60 (> 60) BUN/Creatinine Ratio 20 (6-26) Glucose 259 H (70-105) mg/dL POC Glucose (70-99) mg/dL Calculated Osmolality 287 (280-300) Lactic Acid (0.5-2.2) mmol/L Calcium 9.2 (8.6-10.3) mg/dL Troponin I 0.04 H* (< 0.04) ng/mL Urine Color (Yellow) Urine Clarity (Clear) Urine pH (5.0-8.0) pH Units Ur Specific [place] (1.010-1.025) Urine Protein (Neg-Trace) mg/dL Urine Glucose (UA) (Normal) mg/dL Urine Ketones (Negative) mg/dL Urine Blood (Negative) Urine Nitrite (Negative) Urine Bilirubin (Negative) Urine Urobilinogen (Normal) mg/dL Ur Leukocyte Esterase (Negative) Urine Microscopic RBC (0-3) per hpf Urine Microscopic WBC (0-3) per hpf Ur Squamous Epith Cells (None-Few) per lpf Urine Bacteria (None-Few) per hpf Hyaline Casts (None-Few) per lpf 05/10/19 05/10/19 05/10/19 Range/Units 18:19 19:05 19:32 WBC (4.3-11.1) K/mcL RBC (3.82-4.97) M/mcL Hgb (11.5-15.4) g/dL Hct (35.3-44.9) % MCV (83.0-100.0) fL MCH (28.0-33.3) pg MCHC (31.6-35.5) g/dL RDW (11.5-14.5) % Plt Count (140-400) K/mcL MPV (9.4-12.4) fL Immature Plt Fraction (1.1-6.1) % PT (9.4-12.1) Seconds INR APTT (26.0-36.0) Seconds Sodium (136-145) mEq/L Potassium (3.5-5.1) mEq/L Chloride (98-107) mEq/L Carbon Dioxide (23-29) mEq/L BUN (8-23) mg/dL Creatinine (0.60-1.20) mg/dL Est GFR ( Amer) (> 60) Est GFR (Non-Af Amer) (> 60) BUN/Creatinine Ratio (6-26) Glucose (70-105) mg/dL POC Glucose 263 H (70-99) mg/dL Calculated Osmolality (280-300) Lactic Acid 1.6 (0.5-2.2) mmol/L Calcium (8.6-10.3) mg/dL Troponin I (< 0.04) ng/mL Urine Color Yellow (Yellow) Urine Clarity Clear (Clear) Urine pH 7.0 (5.0-8.0) pH Units Ur Specific [place] > 1.030 H (1.010-1.025) Urine Protein 30 H (Neg-Trace) mg/dL Urine Glucose (UA) Normal (Normal) mg/dL Urine Ketones Negative (Negative) mg/dL Urine Blood Negative (Negative) Urine Nitrite Negative (Negative) Urine Bilirubin Negative (Negative) Urine Urobilinogen Normal (Normal) mg/dL Ur Leukocyte Esterase Small H (Negative) Urine Microscopic RBC 5-15 H (0-3) per hpf Urine Microscopic WBC 50-100 H (0-3) per hpf Ur Squamous Epith Cells Moderate H (None-Few) per lpf Urine Bacteria Few (None-Few) per hpf Hyaline Casts None Seen (None-Few) per lpf - Radiology Data Radiology results reviewed: Yes I reviewed the patient's radiology results. Critical Care Time Critical Care Time: Yes Total Critical Care Time: 30 Attestation: 30 minutes of critical care time were spent with evaluation for stroke with altered consciousness and left facial droop, fever, consideration of seizure, lumbar puncture procedure and discussion with the hospitalist Attestation Statement - Attestation Attestation: I saw and evaluated the patient and and reviewed the resident's note/PA note/VISUAL MERCHANDISING ASSOCIATE note, and I agree with the findings and plan. I personally supervised and was present for the dominguez/critical portions of any procedures. The medical decision- making was reviewed with the NEGATIVE RETOUCHER/PA/Advanced Practice Nurse/Resident Physician. I agree with the documented findings, disposition and treatment plan as described except to the extent set forth below. I did see the patient immediately upon arrival in the room and ordered testing immediately after the patient had her name up on the board and she was at the gastroenterology office and became confused and she did fall and hit her head and had incontinence and the patient did have a urinary tract infection several weeks ago with confusion at that time also. Because of the left facial droop as well as a confusion a stroke alert was called however later the told us that she has had this facial droop multiple times in the past. Additionally, we did get more information and her temperature is 103.1 degrees and so this is likely more of an infectious etiology so sepsis labs are added on as well as IV fluids. My look at the noncontrast head CT does not show any abnormality but we are waiting for radiology interpretation. 0 I did review the EKG showing sinus tachycardia with a rate of 106 and left bundle-branch block and of note we have since spoken with the stroke neurologist at [facility] and they agree no TPA is indicated at this time. 1900 I did discuss the risks and benefits of lumbar puncture with the patient and noemi santos and they agreed to proceed. Consent form was signed. I did prep and draped the patient in usual sterile fashion and at the L4-L5 disc space I did inject 5 mL of 1% lidocaine and then there were multiple advances of the needle but I did obtain clear and colorless CSF without any gross blood and 5 mL were collected and the fluid will be sent to lab. The patient is artery been started on Zosyn and vancomycin. Her confusion has improved but not resolved. The patient will be admitted. Care discussed with the hospitalist physician. [id number]
[2019-05-10 18:44] LABS: Troponin I 0.04 ng/mL (< 0.04)
[2019-05-10] MEDS ORDERED: Acetaminophen 650 MG RECTAL SUPP RC ONE ×2 (18:53→19:00)
[2019-05-10 19:17] LABS: Bilirubin,Urine Negative (Negative); Blood,Urine Negative (Negative); Clarity,Urine Clear (Clear); Color,Urine Yellow (Yellow); Glucose,Urine (UA) Normal (Normal); Ketones,Urine Negative (Negative); Leukocyte Esterase,Urine Small (Negative); Nitrite,Urine Negative (Negative); Protein,Urine 30 mg/dL (Neg-Trace); Specific Gravity,Urine > 1.030 (1.010-1.025); Urobilinogen,Urine Normal (Normal)
[2019-05-10 19:19] LABS: Bacteria,Urine Few per hpf (None-Few); Hyaline Casts,Urine None Seen per lpf (None-Few); Squamous Epithelial Cell,Urine Moderate per lpf (None-Few); WBC,Urine 50-100 per hpf (0-3)
[2019-05-10] MEDS ORDERED: Cefepime HCl 1,000 MG in Water for inj. (sterile) 10 ML IVP STA (20:14)
[2019-05-10] MEDS ORDERED: Ibuprofen 400 MG TABLET PO ONE (20:44)
[2019-05-10 21:53] LABS: Red Blood Cell,CSF < 0.002 M/mcL
[2019-05-10 22:26] LABS: Appearance,CSF Clear (Clear)
[2019-05-10 22:29] LABS: Glucose,CSF 121 mg/dL (40-70); Total Protein,CSF 40 mg/dL (15-45)
[2019-05-10] MEDS ORDERED: Ondansetron 4 MG/2 ML VIAL IVP PRN (22:31)
[2019-05-10] MEDS ORDERED: Dextrose Gel 15 GM/37.5 ML TUBE PO PRN ×2 (22:33)
[2019-05-10] MEDS ORDERED: D5% in Water 1,000 ML IVC PRN (22:33)
[2019-05-10] MEDS ORDERED: *HR* Dextrose 50 % in Water (Syg) 50 ML SYRINGE IVP PRN (22:33)
[2019-05-10] MEDS ORDERED: Ipratropium/Albuterol Neb 3 ML IH PRN (22:34)
[2019-05-10] MEDS ORDERED: Ibuprofen 600 MG TABLET PO PRN (22:41)
[2019-05-10] MEDS ORDERED: Ringers Solution, Lactated 1,000 ML IVC SCH (22:45)
--- NOTE | 2019-05-10 23:41 | Internal Med History&Physical ---
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 She was admitted here 1 month ago and found to have a urinary tract infection complicated by Escherichia coli bacteremia and discharged after 5 hospital days with cefdinir for 8 more days. She apparently has been doing relatively well and went to the GI clinic this afternoon. After a short while there she was noticed to have an acute onset change in her mental status when she went to the restroom. Her noticed that she had soiled onto the floor and did not remember going to the bathroom. She was then noticed to be walking out of the b athroom with a limp and leaning backwards subsequently falling hitting her head. It is reported that she had urine dribble as well and was notably drowsy. There were no reports of generalized shaking or seizure-like activity. The last known well is reported to be about 1710 hrs. Of note, on arrival to the ER she was noted to have a mild left facial droop and more pronounced weakness on her left extremities which family members state was normal for her and not a new finding seemingly from her prior CVA. She was noted febrile consistently with a high of 103.7 degrees. Lab work revealed no leukocytosis, troponin of 0.04, normal glycemia, normal lactic acid level and urinalysis with small leukocyte esterase and 5200 white cells but few bacteria on microscopy and no nitrites. Blood cultures were obtained and she was given an empiric dose of vancomycin and cefepime. She was presented to me for admission at which time I recommended a lumbar puncture be done to rule out a PLANT SENIOR MANAGER infection which was negative and she is admitted for further care. At the time of arrival to the floor she had improved, denying complaints of headache, dizziness, abdominal pain, nausea, vomiting, dysuria, diarrhea and shortness of breath. She does admit to having a mild cough that is non-productive and has no chest pain. She does not recall what happened at the clinic visit but remembers everything that happened prior. Vitals: Reviewed General: Obese white woman lying in bed in no acute distress but seemingly not wanting to talk much and responding to questions with one-word only. Lip smacking and foot twitches noted. Skin: Warm, moist and supple but pale. HEENT: Moist mucous membranes. Mild conjunctivae pallor. Neck: No lymphadenopathy. No JVD. No carotid bruits. No palpable thyroid. Chest: Normal thoracic expansion. Normal breath sounds. Clear to auscultation. Heart: Normal S1 & S2; rhythmic. Grade IV/ murmur auscultated in all foci. Abdomen: distended, soft and non-tender to palpation. No peritoneal reaction. Extremities: No clubbing, cyanosis or edema. No calf tenderness. Normal distal pulses. Neurological: Awake, alert and oriented to person, place. Mild left lower facial deviation noted. Motor strength intact. Psych: Affect flat. Assessment/Plan 1. Altered mental status: Seemingly transient and associated with a febrile episode. Meningoencephalitis has been ruled out fortunately with a clear, colorless CSF without pleocytosis. There is a possibility that she could have had an atypical seizure episode that caused the falling backwards and confusional state and that can precipitate a fever. Hypoglycemia ruled out. A systemic illness be it viral or bacterial could also cause the alteration which is why we are on alert. For now we do not have a definite cause. No signs of CVA and she has clinically improved. Would advise that an MRI be done if her neurologic status decompensates again. Given her liver disease history, will get a serum ammonia. Risperidone, quetiapine and trazodone will be on hold for tonight. 2. Fever: As stated above the entity with higher probability of mortality and morbidity has been ruled out. It is very unlikely that a UTI is causing this although still possible. Will stop the vancomycin/cefepime now and place her solely on ceftriaxone as we continue to monitor her clinical evolution. In the interim, blood and urine cultures will be obtained. Send a respiratory virus panel as well. If fever recurs, will get a chest, abdomen/pelvis CT scan for fu rther evaluation. 3. Troponin elevation: Her EKG shows sinus tachycardia with LBBB which is not a new finding in comparison to prior studies. She has no reports of chest pain. Will monitor the trend and keep her on telemetry. Echo was done 1 month ago. 4. Liver disease: Check LFTs tonight. Administer home dose of nadolol. Check ammonia level. Continue PPI. 5. CVA: On high intensity statin and antiplatelet. 6. Diabetes: Well controlled with last A1C of 6.6%. Place on insulin sliding scale. 7. MAKSIM: CPAP ordered. Past Med Surg Social Fam HX - Past Medical History Medical history: arthritis, asthma, COPD, diabetes, GERD, hyperlipidemia, hypertension, liver disease Additional medical history: heart murmur Psychiatric history: no psych history - Past Surgical History Surgical History: appendectomy, cholecystectomy, orthopedic, other Additional surgical history: foot - Social History Smoking Status: Never smoker Smokeless Tobacco Status: No Alcohol use: none Drug use: none - Family History Father Hx Family Cardiac Disorders: Yes (Heart Attack) Mother Hx Family Cardiac Disorders: Yes (Heart Attack) Internal Medicine - H&P: Meds Clopidogrel [Plavix] 75 mg PO DAILY 12/14/17 [History] Omeprazole [PriLOSEC] 20 mg PO DAILY 12/14/17 [History] Quetiapine Fumarate [Seroquel] 300 mg PO HS 12/14/17 [History] SitaGLIPtin [Januvia] 100 mg PO DAILY 12/14/17 [History] Trospium Chloride 20 mg PO HS 12/14/17 [History] metFORMIN [Glucophage] 1,000 mg PO QPM 12/14/17 [History] metFORMIN [Glucophage] 1,500 mg PO QAM 12/14/17 [History] risperiDONE [Risperidone] 4 mg PO HS 12/14/17 [History] Nadolol 20 mg PO HS 11/27/18 [History] [place]-3/Dha/Epa/Fish Oil [Fish Oil 1,000 mg Softgel] 2 each PO BID 11/27/18 [History] Atorvastatin Calcium 80 mg PO HS 01/04/19 [History] Glimepiride [Amaryl] 4 mg PO BID 01/04/19 [History] Trazodone HCl 100 mg PO HS 01/04/19 [History] Albuterol Sulfate [Proair Hfa] 2 puff IH Q6H PRN 04/05/19 [History] Amantadine [Symmetrel] 100 mg PO DAILY 04/05/19 [History] Allergy/AdvReac Type Severity Reaction Status Date / Time codeine Allergy Swelling Verified 04/05/19 21:03 Penicillins Allergy Swelling Verified 04/05/19 21:03 of Face All Systems PM: A 10-system review of systems was performed and is negative for pertinent findings except as documented above in the HPI. - Constitutional Vitals: Temp Pulse Resp BP Pulse Ox 99.5 F 108 20 128/74 94 05/10/19 22:55 05/10/19 22:55 05/10/19 22:27 05/10/19 22:55 05/10/19 22:56 Exam: . Internal Med - H&P Results - Labs CBC & Chem 7: 05/10/19 18:12 05/10/19 18:12 Labs: Short CBC 05/10/19 Range/Units 18:12 WBC 8.4 (4.3-11.1) K/mcL Hgb 11.4 L (11.5-15.4) g/dL Hct 34.4 L (35.3-44.9) % Plt Count 98 L (140-400) K/mcL BMP 05/10/19 18:12 Sodium 134 L Potassium 4.2 Chloride 98 Carbon Dioxide 25 BUN 12 Creatinine 0.61 Glucose 259 H Calcium 9.2 Cardiac Enzymes 05/10/19 Range/Units 18:12 Troponin I 0.04 H* (< 0.04) ng/mL Urine 05/10/19 Range/Units 19:05 Urine Color Yellow (Yellow) Urine Clarity Clear (Clear) Urine pH 7.0 (5.0-8.0) pH Units Ur Specific [place] > 1.030 H (1.010-1.025) Urine Protein 30 H (Neg-Trace) mg/dL Urine Glucose (UA) Normal (Normal) mg/dL - Impressions ITS Impressions Head CT 05/10/19 18:10 IMPRESSION: Multifocal low-density in the white matter is again noted bilaterally. This is stable and likely due to small vessel ischemic change There no findings diagnostic of an acute infarct No acute hemorrhage Critical results were called by Dr. John Narayanan to Brayan Vazquez MD on 05/10/2019 at 18:42. D/ / John Narayanan / John Narayanan Interpreting Provider: John Narayanan Head CTA 05/10/19 18:10 IMPRESSION: 1. No large vessel occlusion or significant stenosis of the intracranial arteries. 2. Motion limited CTA of the neck. No high-grade stenosis of the carotid or vertebral arteries within limits of motion artifact. D/ / Fletcher Bhatia / Fletcher Bhatia Interpreting Provider: Fletcher Bhatia Chest X-Ray 05/10/19 18:13 IMPRESSION: Increased central opacity which may reflect bronchitis/reactive airways disease or developing pulmonary edema. No focal infiltrate is seen. D/ / New Gerber MD / New Gerber MD Interpreting Provider: New Gerber MD Neck CTA 05/10/19 18:13 IMPRESSION: 1. No large vessel occlusion or significant stenosis of the intracranial arteries. 2. Motion limited CTA of the neck. No high-grade stenosis of the carotid or vertebral arteries within limits of motion artifact. D/ / Fletcher Bhatia / Fletcher Bhatia Interpreting Provider: Fletcher Bhatia - Time Spent With Patient Total time spent is greater than 50% in coordination of care (as documented) at patient's floor/unit and/or counseling patient:
[2019-05-11 00:38] LABS: Albumin 3.5 g/dL (3.5-5.7); Albumin/Globulin Ratio 1.3 (1.1-2.2); Bilirubin,Direct 0.4 mg/dL (0.0-0.2); Bilirubin,Indirect 0.8 mg/dL (0.0-1.2); Bilirubin,Total 1.2 mg/dL (0.3-1.0); Globulin 2.7 g/dL (2.4-3.5); Total Protein 6.2 g/dL (6.4-8.9)
[2019-05-11 04:08] LABS: Adenovirus Not Detected (Not Detect); Bordetella Pertussis Not Detected (Not Detect); Chlamydophila pneumoniae Not Detected (Not Detect); Coronavirus 229E Not Detected (Not Detect); Coronavirus HKU1 Not Detected (Not Detect); Coronavirus NL63 Not Detected (Not Detect); Coronavirus OC43 Not Detected (Not Detect); Human Metapneumovirus Not Detected (Not Detect); Human Rhinovirus/Enterovirus DETECTED (Not Detect); Influenza A Subtype 2009 H1 Not Detected (Not Detect); Influenza A Untypeable Not Detected (Not Detect); Influenza B Not Detected (Not Detect); Mycoplasma pneumoniae Not Detected (Not Detect); Parainfluenza Virus 1 Not Detected (Not Detect); Parainfluenza Virus 2 Not Detected (Not Detect); Parainfluenza Virus 3 Not Detected (Not Detect); Parainfluenza Virus 4 Not Detected (Not Detect); Respiratory Syncytial Virus Not Detected (Not Detect)
[2019-05-11] MEDS: *HR* Heparin 5,000 UNIT/ML VIAL SQ SCH ×2 (05:48→17:40)
[2019-05-11] MEDS: Insulin LISPRO 300 UNITS/3 ML VIAL SQ SCH ×2 (08:37→12:40)
[2019-05-11 11:28] LABS: Acinetobacter baumannii by PCR Not Detected (Not Detect); Enterobacter cloacae Cmplx PCR Not Detected (Not Detect); Enterobacteriaceae by PCR Not Detected (Not Detect); Enterococcus by PCR Not Detected (Not Detect); Escherichia coli by PCR Not Detected (Not Detect); Klebsiella oxytoca by PCR Not Detected (Not Detect); Klebsiella pneumoniae by PCR DETECTED (Not Detect); Proteus by PCR Not Detected (Not Detect); Serratia marcescens by PCR Not Detected (Not Detect); Staphylococcus aureus by PCR Not Detected (Not Detect); Staphylococcus by PCR Not Detected (Not Detect); Streptococcus agalactiae(B)PCR Not Detected (Not Detect); Streptococcus by PCR Not Detected (Not Detect); Streptococcus pneumoniae PCR Not Detected (Not Detect); Streptococcus pyogenes (A) PCR Not Detected (Not Detect); blaKPC Carbapenem-Resist Gene Not Detected (Not Detect); mecA Methicillin-Resist Gene Not Detected (Not Detect); vanA/B Vancomycin-Resist Genes Not Detected (Not Detect)
[2019-05-11 11:29] LABS: Candida albicans by PCR Not Detected (Not Detect); Candida glabrata by PCR Not Detected (Not Detect); Candida krusei by PCR Not Detected (Not Detect); Candida parapsilosis by PCR Not Detected (Not Detect); Candida tropicalis by PCR Not Detected (Not Detect); Pseudomonas aeruginosa by PCR Not Detected (Not Detect)
[2019-05-11] MEDS: cefTRIAXone 2,000 MG in Water for inj. (sterile) 20 ML IVP SCH (14:19)
--- NOTE | 2019-05-11 14:54 | Internal Med Progress Note ---
Hospitalist Progress Note - Encounter Date of Encounter: 05/11/19 Time of Encounter: 14:52 - Subjective Interval History: Patient seen and examined. Patient states that she is feeling better. Patient states the breathing is back to baseline. Urinary discomfort has resolved. Patient does mention that her cough has been present for about a week now. - Exam Vitals: Temp Pulse Resp BP Pulse Ox 98.7 F 81 16 108/51 94 05/11/19 11:42 05/11/19 11:42 05/11/19 11:42 05/11/19 11:42 05/11/19 11:42 Exam: GENERAL APPEARANCE: Well developed, well nourished, alert and cooperative, and appears to be in no acute distress. HEENT: Normocephalic/atraumatic, PERRLA. NECK: Supple, nontender without lymphadenopathy. CARDIOVASCULAR: Normal S1, S2 RESPIRATORY: Clear to auscultation bilaterally; no rales, rhonchi or wheezing. ABDOMEN: Soft, nondistended, nontender; bowel sounds present. MUSKULOSKELETAL: No limitations in range of motion. EXTREMITIES: No edema, clubbing. NEUROLOGICAL: No focal neurological deficits. SKIN: Skin normal color, texture and turgor with no lesions or eruptions. PSYCHIATRIC: Judgment and reasoning; no hallucinations; normal affect. - Assessment and Plan (1) Urinary tract infection Current Visit: Yes Status: Acute Assessment and Plan: Patient presenting with AMS and dysuria UA showing small leuks and 50-100 WBCs Recent admission with UTI and E. Coli bacteremia d/c with cefdinir Plan: Rocephin f/u Urine cultures See gram negative bacteremia below (2) Gram-negative bacteremia Current Visit: Yes Status: Acute Assessment and Plan: Patient presenting with AMS and dysuria; Recent admission with UTI and E. Coli bacteremia treated with cefdinir Fever 103.7 in ED No leukocytosis Blood cultures showing 1/2 gram negative bacteria Plan: Continue rocephin Repeat blood cultures and f/u completion of current cultures (3) Elevated troponin Current Visit: Yes Status: Acute Assessment and Plan: Patient presenting with AMS; stated significant dysuria prior to admission; fever of 103. in ED No leukocytosis UA showing small leuks and 50-100 WBC Plan: Continue rocephin (see above) Urine cultures pending (4) Altered level of consciousness Current Visit: Yes Status: Resolved Assessment and Plan: Appears to have resolved; May have come on as combination UTI/bacteremia/URI (5) COPD (chronic obstructive pulmonary disease) Current Visit: No Status: Chronic Assessment and Plan: Patient appears to be at baseline respiratory status as needed Duoneb (6) Diabetes mellitus Current Visit: No Status: Chronic Assessment and Plan: Currently stable Continue sliding scale insulin - Time Spent with Patient Total time spent is greater than 50% in coordination of care (as documented) at patient's floor/unit and/or counseling patient: 35 Plan of Care Discussed with: patient Internal Medicine: Result - Labs CBC & Chem 7: 05/10/19 18:12 05/10/19 18:12 Labs: Short CBC 05/10/19 Range/Units 18:12 WBC 8.4 (4.3-11.1) K/mcL Hgb 11.4 L (11.5-15.4) g/dL Hct 34.4 L (35.3-44.9) % Plt Count 98 L (140-400) K/mcL BMP 05/10/19 18:12 Sodium 134 L Potassium 4.2 Chloride 98 Carbon Dioxide 25 BUN 12 Creatinine 0.61 Glucose 259 H Calcium 9.2 Cardiac Enzymes 05/10/19 05/11/19 05/11/19 Range/Units 18:12 00:08 05:49 Troponin I 0.04 H* 0.05 H* 0.03 (< 0.04) ng/mL Liver Function 05/11/19 Range/Units 00:08 Total Bilirubin 1.2 H (0.3-1.0) mg/dL Direct Bilirubin 0.4 H (0.0-0.2) mg/dL AST 19 (13-39) Units/L ALT 21 (7-52) Units/L Alkaline Phosphatase 87 (34-104) Units/L Albumin 3.5 (3.5-5.7) g/dL Urine 05/10/19 Range/Units 19:05 Urine Color Yellow (Yellow) Urine Clarity Clear (Clear) Urine pH 7.0 (5.0-8.0) pH Units Ur Specific [place] > 1.030 H (1.010-1.025) Urine Protein 30 H (Neg-Trace) mg/dL Urine Glucose (UA) Normal (Normal) mg/dL - ABG Interpretation ABG results: PT/INR, D-dimer PT 13.4 Seconds (9.4-12.1) H 05/10/19 18:12 - Impressions Impressions Head CT 05/10/19 18:10 IMPRESSION: Multifocal low-density in the white matter is again noted bilaterally. This is stable and likely due to small vessel ischemic change There no findings diagnostic of an acute infarct No acute hemorrhage Critical results were called by Dr. John Narayanan to Brayan Vazquez MD on 05/10/2019 at 18:42. D/ / John Narayanan / John Narayanan Interpreting Provider: John Narayanan Head CTA 05/10/19 18:10 IMPRESSION: 1. No large vessel occlusion or significant stenosis of the intracranial arteries. 2. Motion limited CTA of the neck. No high-grade stenosis of the carotid or vertebral arteries within limits of motion artifact. D/ / Fletcher Bhatia / Fletcher Bhatia Interpreting Provider: Fletcher Bhatia Chest X-Ray 05/10/19 18:13 IMPRESSION: Increased central opacity which may reflect bronchitis/reactive airways disease or developing pulmonary edema. No focal infiltrate is seen. D/ / New Gerber MD / New Gerber MD Interpreting Provider: New Gerber MD Neck CTA 05/10/19 18:13 IMPRESSION: 1. No large vessel occlusion or significant stenosis of the intracranial arteries. 2. Motion limited CTA of the neck. No high-grade stenosis of the carotid or vertebral arteries within limits of motion artifact. D/ / Fletcher Bhatia / Fletcher Bhatia Interpreting Provider: Fletcher Bhatia Consult Discharge Plan - Plan Referrals: Amy Walden MD [Primary Care Provider] - (5) COPD (chronic obstructive pulmonary disease) Qualifiers: COPD type: unspecified COPD Qualified Code(s): J44.9 - Chronic obstructive pulmonary disease, unspecified (6) Diabetes mellitus Qualifiers: Diabetes mellitus type: type 2 Diabetes mellitus oil heaterman insulin use: without oil heaterman use Diabetes mellitus complication status: without complication Qualified Code(s): E11.9 - Type 2 diabetes mellitus without complications
[2019-05-11] MEDS ORDERED: Insulin LISPRO 300 UNITS/3 ML VIAL SQ SCH (21:00)
[2019-05-11] MEDS: risperiDONE 1 MG TABLET PO SCH (21:11)
[2019-05-11] MEDS: traZODone 50 MG TABLET PO SCH (21:11)
[2019-05-12] MEDS: *HR* Heparin 5,000 UNIT/ML VIAL SQ SCH ×2 (05:38→17:20)
[2019-05-12 08:32] LABS: Hematocrit 29.9 % (35.3-44.9); Hemoglobin 9.9 g/dL (11.5-15.4); Mean Corpuscular HGB Conc 33.1 g/dL (31.6-35.5); Mean Corpuscular Hemoglobin 33.9 pg (28.0-33.3); Mean Corpuscular Volume 102.4 fL (83.0-100.0); Red Blood Count 2.92 M/mcL (3.82-4.97); Red Cell Distribution Width 13.5 % (11.5-14.5); White Blood Count 6.8 K/mcL (4.3-11.1)
[2019-05-12 08:34] LABS: Platelet Count 83 K/mcL (140-400)
[2019-05-12] MEDS: Insulin LISPRO 300 UNITS/3 ML VIAL SQ SCH ×4 (08:42→21:06)
[2019-05-12 08:51] LABS: BUN/Creatinine Ratio 22 (6-26); Blood Urea Nitrogen 11 mg/dL (8-23); Calcium 8.7 mg/dL (8.6-10.3); Carbon Dioxide 27 mEq/L (23-29); Chloride 101 mEq/L (98-107); Glucose 153 mg/dL (70-105); Osmolality,Calculated 284 (280-300); Potassium 3.7 mEq/L (3.5-5.1); Sodium 136 mEq/L (136-145); eGFR For African Americans > 60 (> 60); eGFR For Non-African Americans > 60 (> 60)
[2019-05-12] MEDS: cefTRIAXone 2,000 MG in Water for inj. (sterile) 20 ML IVP SCH (13:18)
--- NOTE | 2019-05-12 13:40 | Internal Med Progress Note ---
Hospitalist Progress Note - Encounter Date of Encounter: 05/12/19 Time of Encounter: 13:37 - Subjective Interval History: Patient seen and examined. Patient notes no issues except for some weakness. No urinary symptoms. - Exam Vitals: Temp Pulse Resp BP Pulse Ox 98.1 F 84 16 108/59 92 05/12/19 07:00 05/12/19 07:00 05/12/19 07:00 05/12/19 07:00 05/12/19 07:00 Exam: GENERAL APPEARANCE: Well developed, well nourished, alert and cooperative, and appears to be in no acute distress. HEENT: Normocephalic/atraumatic, PERRLA. NECK: Supple, nontender without lymphadenopathy. CARDIOVASCULAR: Normal S1, S2 RESPIRATORY: Clear to auscultation bilaterally; no rales, rhonchi or wheezing. ABDOMEN: Soft, nondistended, nontender; bowel sounds present. MUSKULOSKELETAL: No limitations in range of motion. EXTREMITIES: No edema, clubbing. NEUROLOGICAL: No focal neurological deficits. SKIN: Skin normal color, texture and turgor with no lesions or eruptions. PSYCHIATRIC: Judgment and reasoning; no hallucinations; normal affect. - Assessment and Plan (1) Gram-negative bacteremia Current Visit: Yes Status: Acute (2) Urinary tract infection Current Visit: Yes Status: Acute Assessment and Plan: Patient presenting with AMS and dysuria UA showing small leuks and 50-100 WBCs Recent admission with UTI and E. Coli bacteremia d/c with cefdinir Plan: Rocephin f/u Urine cultures See gram negative bacteremia above (3) Elevated troponin Current Visit: Yes Status: Acute Assessment and Plan: Mild elevation in troponin on admission 0.04. trended down [place] type 2 [place] from bacteremia; patient denies any chest pain or symptoms associated with cardiac disease Plan: monitor for symptoms (4) Altered level of consciousness Current Visit: Yes Status: Resolved Assessment and Plan: Appears to have resolved; May have come on as combination UTI/bacteremia/URI (5) COPD (chronic obstructive pulmonary disease) Current Visit: No Status: Chronic Assessment and Plan: Patient appears to be at baseline respiratory status as needed Duoneb (6) Diabetes mellitus Current Visit: No Status: Chronic Assessment and Plan: Currently stable Continue sliding scale insulin - Time Spent with Patient Total time spent is greater than 50% in coordination of care (as documented) at patient's floor/unit and/or counseling patient: 35 minutes Plan of Care Discussed with: patient Internal Medicine: Result - Labs CBC & Chem 7: 05/12/19 08:20 05/12/19 08:20 Labs: Short CBC 05/12/19 Range/Units 08:20 WBC 6.8 (4.3-11.1) K/mcL Hgb 9.9 L D (11.5-15.4) g/dL Hct 29.9 L (35.3-44.9) % Plt Count 83 L (140-400) K/mcL BMP 05/12/19 08:20 Sodium 136 Potassium 3.7 Chloride 101 Carbon Dioxide 27 BUN 11 Creatinine 0.49 L Glucose 153 H Calcium 8.7 - ABG Interpretation ABG results: PT/INR, D-dimer PT 13.4 Seconds (9.4-12.1) H 05/10/19 18:12 Consult Discharge Plan - Plan Referrals: Amy Walden MD [Primary Care Provider] - (5) COPD (chronic obstructive pulmonary disease) Qualifiers: COPD type: unspecified COPD Qualified Code(s): J44.9 - Chronic obstructive pulmonary disease, unspecified (6) Diabetes mellitus Qualifiers: Diabetes mellitus type: type 2 Diabetes mellitus moth exterminator insulin use: without moth exterminator use Diabetes mellitus complication status: without complication Qualified Code(s): E11.9 - Type 2 diabetes mellitus without complications
[2019-05-12] MEDS: risperiDONE 1 MG TABLET PO SCH (21:00)
[2019-05-12] MEDS: traZODone 50 MG TABLET PO SCH (21:01)
[2019-05-13 05:35] LABS: Mean Platelet Volume 10.4 fL (9.4-12.4); Red Cell Distribution Width 13.4 % (11.5-14.5)
[2019-05-13 05:37] LABS: Hematocrit 28.6 % (35.3-44.9); Immature Platelets 2.5 % (1.1-6.1); Mean Corpuscular HGB Conc 31.5 g/dL (31.6-35.5); Mean Corpuscular Hemoglobin 32.3 pg (28.0-33.3); Mean Corpuscular Volume 102.5 fL (83.0-100.0); Red Blood Count 2.79 M/mcL (3.82-4.97); White Blood Count 4.5 K/mcL (4.3-11.1)
[2019-05-13 05:55] LABS: BUN/Creatinine Ratio 28 (6-26); Blood Urea Nitrogen 13 mg/dL (8-23); Calcium 8.4 mg/dL (8.6-10.3); Carbon Dioxide 30 mEq/L (23-29); Chloride 105 mEq/L (98-107); Glucose 137 mg/dL (70-105); Osmolality,Calculated 296 (280-300); Potassium 3.9 mEq/L (3.5-5.1); Sodium 142 mEq/L (136-145); eGFR For African Americans > 60 (> 60); eGFR For Non-African Americans > 60 (> 60)
[2019-05-13] MEDS: *HR* Heparin 5,000 UNIT/ML VIAL SQ SCH ×2 (06:26→16:27)
[2019-05-13] MEDS: Insulin LISPRO 300 UNITS/3 ML VIAL SQ SCH ×3 (08:09→16:25)
--- NOTE | 2019-05-13 09:53 | Internal Med Progress Note ---
Hospitalist Progress Note - Encounter Date of Encounter: 05/13/19 Time of Encounter: 09:50 - Subjective Interval History: Patient seen and examined. No acute events overnight. Patient has no acute complaints but continues to endorse significant weakness that is beyond her baseline. She notes that normally, she is able to move around and conduct ADLs at home by herself with minimal assistance but is needing nursing help here. - Exam Vitals: Temp Pulse Resp BP Pulse Ox 98.5 F 75 16 96/68 93 05/13/19 07:05/13/19 07:05/13/19 07:05/13/19 07:05/13/19 08:13 Exam: GENERAL APPEARANCE: Well developed, well nourished, alert and cooperative, and appears to be in no acute distress. HEENT: Normocephalic/atraumatic, PERRLA. NECK: Supple, nontender without lymphadenopathy. CARDIOVASCULAR: Normal S1, S2 RESPIRATORY: Clear to auscultation bilaterally; no rales, rhonchi or wheezing. ABDOMEN: Soft, nondistended, nontender; bowel sounds present. MUSKULOSKELETAL: No limitations in range of motion. EXTREMITIES: No edema, clubbing. NEUROLOGICAL: No focal neurological deficits. SKIN: Skin normal color, texture and turgor with no lesions or eruptions. PSYCHIATRIC: Judgment and reasoning; no hallucinations; normal affect. - Assessment and Plan (1) Gram-negative bacteremia Current Visit: Yes Status: Acute Assessment and Plan: Patient presenting with AMS and dysuria; Recent admission with UTI and E. Coli bacteremia treated with cefdinir Fever 103.7 in ED No leukocytosis Final blood culture growing Klebsiella with sensitivity to current medication Repeat blood cultures negative thus far Plan: Switch rocephin to cefdinir 300 mg BID; 10 more days to complete course (2) Urinary tract infection Current Visit: Yes Status: Acute Assessment and Plan: Patient presenting with AMS and dysuria UA showing small leuks and 50-100 WBCs Recent admission with UTI and E. Coli bacteremia d/c with cefdinir Urine culture growing klebsiella sensitive to cephalosporins Plan: See gram negative bacteremia above (3) Weakness Current Visit: Yes Status: Acute Assessment and Plan: Patient reporting that she feels weaker than her baseline Per nursing, she is able to ambulate with her cane but appears unsteady and requires assitance Plan: PT/OT on board for evaluation; patient may benefit from rehab (4) Elevated troponin Current Visit: Yes Status: Acute Assessment and Plan: Mild elevation in troponin on admission 0.04. trended down Likley type 2 [place] from bacteremia; patient denies any chest pain or symptoms associated with cardiac disease Plan: monitor for symptoms (5) Altered level of consciousness Current Visit: Yes Status: Resolved Assessment and Plan: Appears to have resolved; May have come on as combination UTI/bacteremia/URI (6) COPD (chronic obstructive pulmonary disease) Current Visit: No Status: Chronic Assessment and Plan: Patient appears to be at baseline respiratory status as needed Duoneb (7) Diabetes mellitus Current Visit: No Status: Chronic Assessment and Plan: Currently stable Continue sliding scale insulin - Time Spent with Patient Total time spent is greater than 50% in coordination of care (as documented) at patient's floor/unit and/or counseling patient: 40 minutes Plan of Care Discussed with: patient Internal Medicine: Result - Labs CBC & Chem 7: 05/13/19 05:02 05/13/19 05:02 Labs: Short CBC 05/13/19 Range/Units 05:02 WBC 4.5 (4.3-11.1) K/mcL Hgb 9.0 L (11.5-15.4) g/dL Hct 28.6 L (35.3-44.9) % Plt Count 86 L (140-400) K/mcL BMP 05/13/19 05:02 Sodium 142 Potassium 3.9 Chloride 105 Carbon Dioxide 30 H BUN 13 Creatinine 0.47 L Glucose 137 H Calcium 8.4 L - ABG Interpretation ABG results: PT/INR, D-dimer PT 13.4 Seconds (9.4-12.1) H 05/10/19 18:12 Consult Discharge Plan - Plan Referrals: Amy Walden MD [Primary Care Provider] - (6) COPD (chronic obstructive pulmonary disease) Qualifiers: COPD type: unspecified COPD Qualified Code(s): J44.9 - Chronic obstructive pulmonary disease, unspecified (7) Diabetes mellitus Qualifiers: Diabetes mellitus type: type 2 Diabetes mellitus terminal manager insulin use: without terminal manager use Diabetes mellitus complication status: without complication Qualified Code(s): E11.9 - Type 2 diabetes mellitus without complications
[2019-05-13] MEDS: Cefdinir 300 MG CAPSULE PO SCH (11:01)
[2019-05-14] MEDS: Cefdinir 300 MG CAPSULE PO SCH ×2 (00:26→09:50)
[2019-05-14] MEDS: Insulin LISPRO 300 UNITS/3 ML VIAL SQ SCH ×4 (00:29→11:56)
[2019-05-14] MEDS: risperiDONE 1 MG TABLET PO SCH (00:29)
[2019-05-14] MEDS: traZODone 50 MG TABLET PO SCH (00:29)
[2019-05-14 03:35] LABS: Hematocrit 27.9 % (35.3-44.9); Mean Corpuscular HGB Conc 32.3 g/dL (31.6-35.5); Mean Corpuscular Hemoglobin 33.1 pg (28.0-33.3); Mean Corpuscular Volume 102.6 fL (83.0-100.0); Mean Platelet Volume 10.2 fL (9.4-12.4); Platelet Count 100 K/mcL (140-400); Red Blood Count 2.72 M/mcL (3.82-4.97); Red Cell Distribution Width 13.3 % (11.5-14.5); White Blood Count 3.4 K/mcL (4.3-11.1)
[2019-05-14 03:53] LABS: BUN/Creatinine Ratio 30 (6-26); Blood Urea Nitrogen 13 mg/dL (8-23); Calcium 8.2 mg/dL (8.6-10.3); Carbon Dioxide 28 mEq/L (23-29); Chloride 102 mEq/L (98-107); Glucose 158 mg/dL (70-105); Osmolality,Calculated 289 (280-300); Potassium 3.8 mEq/L (3.5-5.1); Sodium 138 mEq/L (136-145); eGFR For African Americans > 60 (> 60); eGFR For Non-African Americans > 60 (> 60)
[2019-05-14 04:15] VITALS: BP 128/74
[2019-05-14] MEDS: *HR* Heparin 5,000 UNIT/ML VIAL SQ SCH (05:41)
--- NOTE | 2019-05-14 09:24 | Discharge Summary ---
Orders not resulted at time of discharge: Pending orders 05/10/19 19:32 Culture,Blood [BC] Stat 05/11/19 18:04 Culture,Blood [BC] Stat Date of Encounter: 05/14/19 Time of Encounter: 09:20 - Discharge Diagnosis (1) Gram-negative bacteremia Priority: Primary Status: Acute (2) Urinary tract infection Priority: Secondary Status: Acute Qualifiers: Urinary tract infection type: site unspecified Hematuria presence: without hematuria Qualified Code(s): N39.0 - Urinary tract infection, site not specified (3) Weakness Priority: Secondary Status: Acute (4) Elevated troponin Priority: Secondary Status: Acute (5) Altered level of consciousness Priority: Secondary Status: Resolved (6) COPD (chronic obstructive pulmonary disease) Priority: Secondary Status: Chronic Qualifiers: COPD type: unspecified COPD Qualified Code(s): J44.9 - Chronic obstructive pulmonary disease, unspecified (7) Diabetes mellitus Priority: Secondary Status: Chronic Qualifiers: Diabetes mellitus type: type 2 Diabetes mellitus halfway insulin use: without halfway use Diabetes mellitus complication status: without complication Qualified Code(s): E11.9 - Type 2 diabetes mellitus without complications Hospital course: Ms. Isabel is a 69 year old female with PMH of CVA, COPD, DM, HTN HLD and liver cirrhosis presented with AMS and dysuria. Patient recently treated for UTI complicated by E. Coli bacteremia. Patient was started on rocephin with improvment in symptoms. Urine and blood cultures grew klebsiella which was sensitive to cephalosporins. Patient was started on omnicef. During admission, patient was noticeably weak compared to baseline. PT was consulted and recommended home health PT. Patient was advised but refused despite lowell mmendation. Patient was clinically stable on day of discharge. She will be discharged with 10 day prescription of cefdinir to complete abx course. - Time Spent with Patient Total time spent providing and/or coordinating discharge services: 42 minutes - Discharge Medications Prescriptions: New Cefdinir [Omnicef] 300 mg PO Q12H #20 capsule Continued Trospium Chloride 20 mg PO HS SitaGLIPtin [Januvia] 100 mg PO DAILY risperiDONE [Risperidone] 4 mg PO HS Quetiapine Fumarate [Seroquel] 300 mg PO HS Omeprazole [PriLOSEC] 20 mg PO DAILY metFORMIN [Glucophage] 1,000 mg PO QPM metFORMIN [Glucophage] 1,500 mg PO QAM Clopidogrel [Plavix] 75 mg PO DAILY Nadolol 20 mg PO HS Bloomery-3/Dha/Epa/Fish Oil [Fish Oil 1,000 mg Softgel] 2 each PO BID Trazodone HCl 100 mg PO HS Atorvastatin Calcium 80 mg PO HS Glimepiride [Amaryl] 4 mg PO BID Albuterol Sulfate [Proair Hfa] 2 puff IH Q6H PRN PRN Reason: Shortness Of Breath Amantadine [Symmetrel] 100 mg PO DAILY Home Medications: Clopidogrel [Plavix] 75 mg PO DAILY 12/14/17 [History] Omeprazole [PriLOSEC] 20 mg PO DAILY 12/14/17 [History] Quetiapine Fumarate [Seroquel] 300 mg PO HS 12/14/17 [History] SitaGLIPtin [Januvia] 100 mg PO DAILY 12/14/17 [History] Trospium Chloride 20 mg PO HS 12/14/17 [History] metFORMIN [Glucophage] 1,000 mg PO QPM 12/14/17 [History] metFORMIN [Glucophage] 1,500 mg PO QAM 12/14/17 [History] risperiDONE [Risperidone] 4 mg PO HS 12/14/17 [History] Nadolol 20 mg PO HS 11/27/18 [History] Bloomery-3/Dha/Epa/Fish Oil [Fish Oil 1,000 mg Softgel] 2 each PO BID 11/27/18 [History] Atorvastatin Calcium 80 mg PO HS 01/04/19 [History] Glimepiride [Amaryl] 4 mg PO BID 01/04/19 [History] Trazodone HCl 100 mg PO HS 01/04/19 [History] Albuterol Sulfate [Proair Hfa] 2 puff IH Q6H PRN 04/05/19 [History] Amantadine [Symmetrel] 100 mg PO DAILY 04/05/19 [History] Cefdinir [Omnicef] 300 mg PO Q12H #20 capsule 05/14/19 [Rx] Allergies/Adverse Reactions: Allergy/AdvReac Type Severity Reaction Status Date / Time codeine Allergy Swelling Verified 04/05/19 21:03 Penicillins Allergy Swelling Verified 04/05/19 21:03 of Face Date of admission: 05/10/19 22:35 Primary care physician: Amy Walden Consults: 05/12/19 13:38 Consult to Occupational Therapy [CONS] Routine Comment: Evaluate, develop and implement POC Reason for Consult: Weakness Does patient have active BEDREST order?: No Is patient medically & hemodynamically stable?: Yes Consult to Physical Therapy [CONS] Routine Comment: Evaluate, develop and implement POC Reason for Consult: Weakness Does patient have active BEDREST order?: No Is patient medically & hemodynamically stable?: Yes Discharging clinician: Nina Story Anticipated date of discharge: 05/14/19 - Constitutional Vitals: Temp Pulse Resp BP Pulse Ox 97.5 F L 60 18 128/74 94 05/14/19 07:52 05/14/19 07:52 05/14/19 07:52 05/14/19 04:10 05/14/19 07:52 General appearance: Present: A&O X 3, no acute distress, answers questions appropriately Exam: GENERAL APPEARANCE: Well developed, well nourished, alert and cooperative, and appears to be in no acute distress. HEENT: Normocephalic/atraumatic, PERRLA. NECK: Supple, nontender without lymphadenopathy. CARDIOVASCULAR: Normal S1, S2 RESPIRATORY: Clear to auscultation bilaterally; no rales, rhonchi or wheezing. ABDOMEN: Soft, nondistended, nontender; bowel sounds present. MUSKULOSKELETAL: No limitations in range of motion. EXTREMITIES: No edema, clubbing. NEUROLOGICAL: No focal neurological deficits. SKIN: Skin normal color, texture and turgor with no lesions or eruptions. PSYCHIATRIC: Judgment and reasoning; no hallucinations; normal affect. - Patient Status Disposition: Home, Self-Care Condition: Fair Functional capacity at discharge: uses cane/walker Overall status at discharge: patient is progressing back to baseline - Discharge Instructions Follow Up With: Amy Walden MD [Primary Care Provider] - - Diet and Activity Activity: resume usual activities as tolerated Diet: advance to your usual diet
--- NOTE | 2019-05-14 12:00 | Electrocardiograph Report ---
[place] [id number] Test Date: 2019-05-10 Pat Name: Alyssa Isabel Department: EXAM10 Room: [id number] Gender: F Oven Operator: : 1950 Requested By: Sacha Burger Order Number: [id number] Reading MD: Norris Davis Measurements Intervals [place] Rate: 106 P: 89 MS: 176 QRS: -29 QRSD: 130 T: 122 QT: 361 QTc: 480 Interpretive Statements Sinus tachycardia Left bundle branch block Electronically Signed On 05-14-2019 11:58:03 EDT by Norris Davis
[2019-05-14] MEDS ORDERED: FLU Vac QV 19-20 (6Month+)/PF 0.5 ML SYRINGE IM ONE (12:41)
== END 2019-05-14 14:37 | disposition home or self-care (01) | DRG 689 ==
LOC: EMEROOARM 18:09 → 2NENU 18:09 → SUATTDRO 22:35
PROVIDERS: ADMIT Internal Medicine; ATTEND Family Medicine

== ENCOUNTER 2019-10-25 23:27 | Inpatient (IN) ==
[2019-10-25] MEDS ORDERED: 0.9 % Sodium Chloride 1,000 ML IVC ONE (23:43)
[2019-10-26] MEDS ORDERED: cefTRIAXone 1,000 MG in Water for inj. (sterile) 10 ML IVP ONE (00:08)
[2019-10-26 00:29] LABS: Eosinophils % 0.2 %
[2019-10-26 00:31] LABS: Basophils % 0.2 %; Hematocrit 36.1 % (35.3-44.9); Immature Granulocytes % 0.4 % (0-4); Immature Platelets 2.2 % (1.1-6.1); Lymphocytes # 0.3 K/mcL (0.6-4.6); Lymphocytes % 5.3 %; Mean Corpuscular HGB Conc 33.2 g/dL (31.6-35.5); Mean Corpuscular Hemoglobin 34.4 pg (28.0-33.3); Mean Corpuscular Volume 103.4 fL (83.0-100.0); Mean Platelet Volume 11.1 fL (9.4-12.4); Monocytes # 0.4 K/mcL (0.0-1.3); Monocytes % 7.2 %; Red Blood Count 3.49 M/mcL (3.82-4.97); Red Cell Distribution Width 13.2 % (11.5-14.5); Segmented Neutrophils % 86.7 %; White Blood Count 5.1 K/mcL (4.3-11.1)
[2019-10-26 00:32] LABS: Neutrophils # 4.4 K/mcL (1.6-8.9); Platelet Count 67 K/mcL (140-400)
[2019-10-26 00:33] LABS: Platelet Estimate Decreased (Normal)
[2019-10-26 00:40] LABS: Bilirubin,Urine Negative (Negative); Blood,Urine Negative (Negative); Clarity,Urine Clear (Clear); Color,Urine Yellow (Yellow); Glucose,Urine (UA) 500 mg/dL (Normal); Ketones,Urine Negative (Negative); Leukocyte Esterase,Urine Small (Negative); Nitrite,Urine Negative (Negative); Protein,Urine Trace mg/dL (Neg-Trace); Urobilinogen,Urine Normal (Normal)
[2019-10-26 00:40] LABS: Alanine Aminotransferase 27 Units/L (7-52); Albumin 3.8 g/dL (3.5-5.7); Albumin/Globulin Ratio 1.5 (1.1-2.2); Alkaline Phosphatase 93 Units/L (34-104); Aspartate Amino Transferase 26 Units/L (13-39); Bilirubin,Direct 0.3 mg/dL (0.0-0.2); Bilirubin,Indirect 0.8 mg/dL (0.0-1.0); Bilirubin,Total 1.1 mg/dL (0.3-1.0); Blood Urea Nitrogen 12 mg/dL (8-23); Calcium 9.2 mg/dL (8.6-10.3); Carbon Dioxide 26 mEq/L (23-29); Chloride 102 mEq/L (98-107); Globulin 2.6 g/dL (2.4-3.5); Glucose 259 mg/dL (70-105); Osmolality,Calculated 289 (280-300); Potassium 3.5 mEq/L (3.5-5.1); Sodium 135 mEq/L (136-145); Total Protein 6.4 g/dL (6.4-8.9)
[2019-10-26 00:42] LABS: Bacteria,Urine None Seen per hpf (None-Few); Hyaline Casts,Urine None Seen per lpf (None-Few); Squamous Epithelial Cell,Urine Few per lpf (None-Few); WBC,Urine 15-30 per hpf (0-3)
[2019-10-26 01:10] LABS: BUN/Creatinine Ratio 26 (6-26); eGFR For African Americans > 60 (> 60); eGFR For Non-African Americans > 60 (> 60)
[2019-10-26] MEDS ORDERED: Isovue-370 500 ML BOTTLE IVP ONE (01:20)
[2019-10-26 01:29] LABS: Magnesium 1.3 mg/dL (1.6-2.6)
[2019-10-26 03:03] LABS: Lipase 41 Units/L (11-82)
[2019-10-26] MEDS ORDERED: Naloxone 0.4 MG/ML INJ IVP PRN (03:34)
[2019-10-26] MEDS ORDERED: *HR* Dextrose 50 % in Water (Syg) 50 ML SYRINGE IVP PRN (03:35)
[2019-10-26] MEDS ORDERED: D5% in Water 1,000 ML IVC PRN (03:35)
[2019-10-26] MEDS ORDERED: Dextrose Gel 15 GM/37.5 ML TUBE PO PRN ×2 (03:35)
[2019-10-26] MEDS ORDERED: 0.9 % Sodium Chloride 1,000 ML IVC SCH (04:00)
[2019-10-26 04:44] LABS: Basophils % 0.2 %; Mean Platelet Volume 10.9 fL (9.4-12.4)
[2019-10-26 04:45] LABS: Hematocrit 32.9 % (35.3-44.9); Hemoglobin 10.9 g/dL (11.5-15.4); Immature Granulocytes % 0.4 % (0-4); Immature Platelets 1.9 % (1.1-6.1); Lymphocytes # 0.5 K/mcL (0.6-4.6); Mean Corpuscular HGB Conc 33.1 g/dL (31.6-35.5); Mean Corpuscular Hemoglobin 34.9 pg (28.0-33.3); Mean Corpuscular Volume 105.4 fL (83.0-100.0); Monocytes # 0.3 K/mcL (0.0-1.3); Monocytes % 5.8 %; Neutrophils # 4.2 K/mcL (1.6-8.9); Red Blood Count 3.12 M/mcL (3.82-4.97); Red Cell Distribution Width 13.6 % (11.5-14.5); Segmented Neutrophils % 83.6 %
[2019-10-26 04:48] LABS: Platelet Count 65 K/mcL (140-400)
[2019-10-26 04:49] LABS: Platelet Estimate Decreased (Normal)
[2019-10-26 05:02] LABS: BUN/Creatinine Ratio 23 (6-26); Blood Urea Nitrogen 11 mg/dL (8-23); Calcium 8.6 mg/dL (8.6-10.3); Carbon Dioxide 26 mEq/L (23-29); Chloride 105 mEq/L (98-107); Glucose 141 mg/dL (70-105); Osmolality,Calculated 286 (280-300); Potassium 3.6 mEq/L (3.5-5.1); Sodium 137 mEq/L (136-145); eGFR For African Americans > 60 (> 60); eGFR For Non-African Americans > 60 (> 60)
[2019-10-26] MEDS: Insulin LISPRO 300 UNITS/3 ML VIAL SQ SCH ×3 (07:36→16:28)
[2019-10-26] MEDS: cloNIDine HCL 0.1 MG TABLET PO SCH (07:36)
[2019-10-26] MEDS: Lactulose Oral Soln 20 GM/30 ML UDC PO SCH ×3 (07:37→20:38)
[2019-10-26] MEDS: Budesonide/Formoterol 80/4.5 1 PUFF INH IH SCH ×2 (07:48→21:41)
[2019-10-26] MEDS ORDERED: cefTRIAXone 1,000 MG in 0.9 % Sodium Chloride Mini Bag 100 ML IVPB SCH (08:00)
[2019-10-26] MEDS: Azithromycin 500 MG in 0.9 % Sodium Chloride 250 ML IVPB SCH (08:58)
[2019-10-26] MEDS ORDERED: cefTRIAXone 1,000 MG in Water for inj. (sterile) 10 ML IVP SCH (09:00)
[2019-10-26] MEDS ORDERED: NON-FORMULARY MEDICATION 1 EACH EACH (Omega-3/Dha/Epa/Fish Oil [Fish Oil 1,000 Mg Softgel] PO SCH (09:00)
[2019-10-26 13:15] LABS: Adenovirus Not Detected (Not Detect); Bordetella Pertussis Not Detected (Not Detect); Chlamydophila pneumoniae Not Detected (Not Detect); Coronavirus 229E Not Detected (Not Detect); Coronavirus HKU1 Not Detected (Not Detect); Coronavirus NL63 Not Detected (Not Detect); Coronavirus OC43 Not Detected (Not Detect); Human Metapneumovirus Not Detected (Not Detect); Human Rhinovirus/Enterovirus Not Detected (Not Detect); Influenza A Subtype 2009 H1 Not Detected (Not Detect); Influenza B Not Detected (Not Detect); Mycoplasma pneumoniae Not Detected (Not Detect); Parainfluenza Virus 1 Not Detected (Not Detect); Parainfluenza Virus 2 Not Detected (Not Detect); Parainfluenza Virus 3 Not Detected (Not Detect); Parainfluenza Virus 4 Not Detected (Not Detect); Respiratory Syncytial Virus Not Detected (Not Detect)
[2019-10-26 16:42] LABS: blaKPC Carbapenem-Resist Gene Not Detected (Not Detect)
[2019-10-26 16:44] LABS: Acinetobacter baumannii by PCR Not Detected (Not Detect); Enterobacter cloacae Cmplx PCR Not Detected (Not Detect); Enterococcus by PCR Not Detected (Not Detect); Escherichia coli by PCR Not Detected (Not Detect); Klebsiella oxytoca by PCR Not Detected (Not Detect); Klebsiella pneumoniae by PCR DETECTED (Not Detect); Staphylococcus aureus by PCR Not Detected (Not Detect); Staphylococcus by PCR Not Detected (Not Detect); Streptococcus agalactiae(B)PCR Not Detected (Not Detect); Streptococcus by PCR Not Detected (Not Detect); Streptococcus pneumoniae PCR Not Detected (Not Detect); Streptococcus pyogenes (A) PCR Not Detected (Not Detect)
[2019-10-26 16:47] LABS: Candida albicans by PCR Not Detected (Not Detect); Candida glabrata by PCR Not Detected (Not Detect); Candida krusei by PCR Not Detected (Not Detect); Candida parapsilosis by PCR Not Detected (Not Detect); Candida tropicalis by PCR Not Detected (Not Detect); Proteus by PCR Not Detected (Not Detect); Pseudomonas aeruginosa by PCR Not Detected (Not Detect); Serratia marcescens by PCR Not Detected (Not Detect)
[2019-10-26] MEDS: Ibuprofen 400 MG TABLET PO PRN (18:06)
[2019-10-26] MEDS: QUEtiapine Fumarate 300 MG TABLET PO SCH (20:37)
[2019-10-26] MEDS: traZODone 50 MG TABLET PO SCH (20:37)
[2019-10-26] MEDS: risperiDONE 1 MG TABLET PO SCH (20:47)
[2019-10-26] MEDS: cefTRIAXone 1,000 MG in Water for inj. (sterile) 10 ML IVP SCH (22:36)
[2019-10-27] MEDS: Insulin LISPRO 300 UNITS/3 ML VIAL SQ SCH ×3 (07:42→16:56)
[2019-10-27] MEDS: Budesonide/Formoterol 80/4.5 1 PUFF INH IH SCH ×2 (07:54→20:29)
[2019-10-27] MEDS: Lactulose Oral Soln 20 GM/30 ML UDC PO SCH ×3 (08:58→20:55)
[2019-10-27] MEDS: Azithromycin 500 MG in 0.9 % Sodium Chloride 250 ML IVPB SCH (08:58)
[2019-10-27] MEDS: cloNIDine HCL 0.1 MG TABLET PO SCH (08:59)
[2019-10-27] MEDS: Ibuprofen 400 MG TABLET PO PRN ×2 (09:11→17:01)
[2019-10-27 10:00] LABS: Basophils % 0.3 %; Red Cell Distribution Width 13.8 % (11.5-14.5)
[2019-10-27 10:02] LABS: Hematocrit 36.8 % (35.3-44.9); Hemoglobin 11.8 g/dL (11.5-15.4); Immature Granulocytes % 0.5 % (0-4); Immature Platelets 2.4 % (1.1-6.1); Lymphocytes # 0.3 K/mcL (0.6-4.6); Lymphocytes % 8.4 %; Mean Corpuscular HGB Conc 32.1 g/dL (31.6-35.5); Mean Corpuscular Hemoglobin 34.2 pg (28.0-33.3); Mean Corpuscular Volume 106.7 fL (83.0-100.0); Mean Platelet Volume 10.9 fL (9.4-12.4); Monocytes # 0.5 K/mcL (0.0-1.3); Monocytes % 12.5 %; Red Blood Count 3.45 M/mcL (3.82-4.97); Segmented Neutrophils % 77.3 %; White Blood Count 3.9 K/mcL (4.3-11.1)
[2019-10-27 10:03] LABS: Platelet Count 63 K/mcL (140-400)
[2019-10-27 10:17] LABS: Alanine Aminotransferase 39 Units/L (7-52); Albumin 3.5 g/dL (3.5-5.7); Albumin/Globulin Ratio 1.3 (1.1-2.2); Alkaline Phosphatase 85 Units/L (34-104); Aspartate Amino Transferase 37 Units/L (13-39); BUN/Creatinine Ratio 24 (6-26); Bilirubin,Direct 0.4 mg/dL (0.0-0.2); Bilirubin,Indirect 0.7 mg/dL (0.0-1.0); Bilirubin,Total 1.1 mg/dL (0.3-1.0); Blood Urea Nitrogen 12 mg/dL (8-23); Calcium 8.9 mg/dL (8.6-10.3); Carbon Dioxide 26 mEq/L (23-29); Chloride 103 mEq/L (98-107); Globulin 2.8 g/dL (2.4-3.5); Glucose 230 mg/dL (70-105); Osmolality,Calculated 297 (280-300); Potassium 4.4 mEq/L (3.5-5.1); Sodium 140 mEq/L (136-145); Total Protein 6.3 g/dL (6.4-8.9); eGFR For African Americans > 60 (> 60); eGFR For Non-African Americans > 60 (> 60)
[2019-10-27] MEDS: QUEtiapine Fumarate 300 MG TABLET PO SCH (20:55)
[2019-10-27] MEDS: risperiDONE 1 MG TABLET PO SCH (20:55)
[2019-10-27] MEDS: traZODone 50 MG TABLET PO SCH (20:55)
[2019-10-27] MEDS: cefTRIAXone 1,000 MG in Water for inj. (sterile) 10 ML IVP SCH (23:07)
[2019-10-28 01:00] LABS: Basophils % 0.4 %; Hemoglobin 10.9 g/dL (11.5-15.4); Red Cell Distribution Width 13.5 % (11.5-14.5)
[2019-10-28 01:02] LABS: Eosinophils # 0.1 K/mcL (0.0-0.6); Eosinophils % 2.9 %; Hematocrit 34.4 % (35.3-44.9); Immature Platelets 2.6 % (1.1-6.1); Lymphocytes % 23.8 %; Mean Corpuscular HGB Conc 31.7 g/dL (31.6-35.5); Mean Corpuscular Hemoglobin 34.2 pg (28.0-33.3); Mean Corpuscular Volume 107.8 fL (83.0-100.0); Mean Platelet Volume 10.7 fL (9.4-12.4); Monocytes # 0.5 K/mcL (0.0-1.3); Monocytes % 16.5 %; Neutrophils # 1.5 K/mcL (1.6-8.9); Red Blood Count 3.19 M/mcL (3.82-4.97); Segmented Neutrophils % 56.4 %; White Blood Count 2.7 K/mcL (4.3-11.1)
[2019-10-28 01:03] LABS: Lymphocytes # 0.6 K/mcL (0.6-4.6); Platelet Count 61 K/mcL (140-400)
[2019-10-28 01:06] LABS: Alanine Aminotransferase 37 Units/L (7-52); Albumin 3.3 g/dL (3.5-5.7); Albumin/Globulin Ratio 1.2 (1.1-2.2); Alkaline Phosphatase 81 Units/L (34-104); Aspartate Amino Transferase 47 Units/L (13-39); BUN/Creatinine Ratio 29 (6-26); Bilirubin,Total 0.8 mg/dL (0.3-1.0); Blood Urea Nitrogen 13 mg/dL (8-23); Calcium 8.6 mg/dL (8.6-10.3); Carbon Dioxide 28 mEq/L (23-29); Chloride 107 mEq/L (98-107); Globulin 2.7 g/dL (2.4-3.5); Glucose 134 mg/dL (70-105); Osmolality,Calculated 292 (280-300); Sodium 140 mEq/L (136-145); eGFR For African Americans > 60 (> 60); eGFR For Non-African Americans > 60 (> 60)
[2019-10-28 01:37] LABS: Platelet Estimate Decreased (Normal)
[2019-10-28] MEDS: Budesonide/Formoterol 80/4.5 1 PUFF INH IH SCH ×2 (07:25→19:35)
[2019-10-28] MEDS: Insulin LISPRO 300 UNITS/3 ML VIAL SQ SCH ×3 (08:58→17:36)
[2019-10-28] MEDS: Azithromycin 500 MG in 0.9 % Sodium Chloride 250 ML IVPB SCH (09:00)
[2019-10-28] MEDS: Lactulose Oral Soln 20 GM/30 ML UDC PO SCH ×3 (09:00→20:51)
[2019-10-28] MEDS: cloNIDine HCL 0.1 MG TABLET PO SCH (09:00)
[2019-10-28] MEDS: QUEtiapine Fumarate 300 MG TABLET PO SCH (20:50)
[2019-10-28] MEDS: traZODone 50 MG TABLET PO SCH (20:50)
[2019-10-28] MEDS: risperiDONE 1 MG TABLET PO SCH (20:50)
[2019-10-28] MEDS: Ibuprofen 400 MG TABLET PO PRN (21:18)
[2019-10-28] MEDS: cefTRIAXone 1,000 MG in Water for inj. (sterile) 10 ML IVP SCH (22:50)
[2019-10-29] MEDS: Insulin LISPRO 300 UNITS/3 ML VIAL SQ SCH ×3 (07:42→18:14)
[2019-10-29] MEDS: Budesonide/Formoterol 80/4.5 1 PUFF INH IH SCH ×2 (07:47→21:59)
[2019-10-29] MEDS: Azithromycin 500 MG in 0.9 % Sodium Chloride 250 ML IVPB SCH (08:00)
[2019-10-29] MEDS: Lactulose Oral Soln 20 GM/30 ML UDC PO SCH ×3 (08:01→20:33)
[2019-10-29] MEDS: cloNIDine HCL 0.1 MG TABLET PO SCH (08:01)
[2019-10-29] MEDS: risperiDONE 1 MG TABLET PO SCH (20:31)
[2019-10-29] MEDS: QUEtiapine Fumarate 300 MG TABLET PO SCH (20:32)
[2019-10-29] MEDS: traZODone 50 MG TABLET PO SCH (20:32)
[2019-10-29] MEDS: cefTRIAXone 1,000 MG in Water for inj. (sterile) 10 ML IVP SCH (23:10)
[2019-10-30 04:12] LABS: Hemoglobin 10.8 g/dL (11.5-15.4); Red Cell Distribution Width 12.9 % (11.5-14.5)
[2019-10-30 04:14] LABS: Basophils % 0.3 %; Eosinophils # 0.1 K/mcL (0.0-0.6); Eosinophils % 2.7 %; Hematocrit 32.8 % (35.3-44.9); Immature Platelets 2.1 % (1.1-6.1); Lymphocytes % 33.6 %; Mean Corpuscular HGB Conc 32.9 g/dL (31.6-35.5); Mean Corpuscular Volume 103.1 fL (83.0-100.0); Mean Platelet Volume 10.2 fL (9.4-12.4); Monocytes # 0.3 K/mcL (0.0-1.3); Monocytes % 10.7 %; Neutrophils # 1.6 K/mcL (1.6-8.9); Red Blood Count 3.18 M/mcL (3.82-4.97); Segmented Neutrophils % 52.7 %
[2019-10-30 04:15] LABS: Platelet Count 78 K/mcL (140-400)
[2019-10-30 04:30] LABS: BUN/Creatinine Ratio 24 (6-26); Blood Urea Nitrogen 10 mg/dL (8-23); Calcium 8.5 mg/dL (8.6-10.3); Carbon Dioxide 27 mEq/L (23-29); Chloride 105 mEq/L (98-107); Glucose 136 mg/dL (70-105); Osmolality,Calculated 289 (280-300); Potassium 3.7 mEq/L (3.5-5.1); Sodium 139 mEq/L (136-145); eGFR For African Americans > 60 (> 60); eGFR For Non-African Americans > 60 (> 60)
[2019-10-30] MEDS: Ibuprofen 400 MG TABLET PO PRN (06:56)
[2019-10-30] MEDS: Lactulose Oral Soln 20 GM/30 ML UDC PO SCH (08:24)
[2019-10-30] MEDS: cloNIDine HCL 0.1 MG TABLET PO SCH (08:25)
[2019-10-30] MEDS: Insulin LISPRO 300 UNITS/3 ML VIAL SQ SCH (08:25)
[2019-10-30] MEDS ORDERED: Azithromycin 250 MG TABLET PO SCH (09:00)
[2019-10-30 10:51] VITALS: BP 122/73
[2019-10-30] MEDS: Budesonide/Formoterol 80/4.5 1 PUFF INH IH SCH (10:52)
== END 2019-10-30 11:36 | disposition home health service (06) | DRG 871 ==
LOC: 3ANU 23:27 → EMEROOARM 23:27 → SUATTDRO 10-26 03:24 → 3ANU 10-26 04:02
PROVIDERS: ADMIT Internal Medicine; ATTEND Family Medicine

== ENCOUNTER 2020-07-10 17:29 | Inpatient (IN) ==
[2020-07-10] MEDS ORDERED: 0.9 % Sodium Chloride 1,000 ML ONE (17:55)
[2020-07-10] MEDS ORDERED: Isovue-370 500 ML BOTTLE IVP ONE (18:01)
[2020-07-10 18:31] LABS: Basophils % 0.5 %; Eosinophils # 0.1 K/mcL (0.0-0.6); Eosinophils % 2.3 %; Hematocrit 38.6 % (35.3-44.9); Hemoglobin 11.7 g/dL (11.5-15.4); Immature Granulocytes % 0.2 % (0-4); Lymphocytes # 0.8 K/mcL (0.6-4.6); Lymphocytes % 18.3 %; Mean Corpuscular HGB Conc 30.3 g/dL (31.6-35.5); Mean Corpuscular Volume 112.2 fL (83.0-100.0); Mean Platelet Volume 10.1 fL (9.4-12.4); Monocytes # 0.4 K/mcL (0.0-1.3); Monocytes % 9.3 %; Neutrophils # 3.1 K/mcL (1.6-8.9); Platelet Count 104 K/mcL (140-400); Red Blood Count 3.44 M/mcL (3.82-4.97); Red Cell Distribution Width 14.5 % (11.5-14.5); Segmented Neutrophils % 69.4 %; White Blood Count 4.4 K/mcL (4.3-11.1)
[2020-07-10] MEDS ORDERED: 0.9 % Sodium Chloride 1,000 ML IVC ONE (18:57)
[2020-07-10 18:58] LABS: Alanine Aminotransferase 17 Units/L (7-52); Albumin 3.7 g/dL (3.5-5.7); Albumin/Globulin Ratio 1.5 (1.1-2.2); Alkaline Phosphatase 65 Units/L (34-104); Aspartate Amino Transferase 25 Units/L (13-39); BUN/Creatinine Ratio 20 (6-26); Bilirubin,Direct 0.2 mg/dL (0.0-0.2); Bilirubin,Indirect 0.6 mg/dL (0.0-1.0); Bilirubin,Total 0.8 mg/dL (0.3-1.0); Blood Urea Nitrogen 17 mg/dL (8-23); Calcium 8.5 mg/dL (8.6-10.3); Carbon Dioxide 32 mEq/L (23-29); Chloride 101 mEq/L (98-107); Globulin 2.5 g/dL (2.4-3.5); Glucose 61 mg/dL (70-105); Lipase 46 Units/L (11-82); Osmolality,Calculated 293 (280-300); Potassium 4.6 mEq/L (3.5-5.1); Sodium 142 mEq/L (136-145); Total Protein 6.2 g/dL (6.4-8.9); Troponin I 0.04 ng/mL (< 0.04); eGFR For African Americans > 60 (> 60); eGFR For Non-African Americans > 60 (> 60)
[2020-07-10 19:17] LABS: Platelet Estimate Decreased (Normal)
[2020-07-10 19:18] LABS: Macrocytosis Present (Not Present)
[2020-07-10 20:12] LABS: Bilirubin,Urine Negative (Negative); Blood,Urine Trace (Negative); Clarity,Urine Clear (Clear); Color,Urine Yellow (Yellow); Glucose,Urine (UA) Normal (Normal); Ketones,Urine Negative (Negative); Leukocyte Esterase,Urine Trace (Negative); Nitrite,Urine Negative (Negative); PH,Urine 5.5 pH Units (5.0-8.0); Protein,Urine 50 mg/dL (Neg-Trace); Specific Gravity,Urine 1.026 (1.010-1.025); Urobilinogen,Urine Normal (Normal)
[2020-07-10 20:24] LABS: Hyaline Casts,Urine Many per lpf (None Seen); Mucus,Urine Few per lpf (None-Few); Renal Epithelial Cells,Urine Few per hpf (None-Few); Squamous Epithelial Cell,Urine Few per hpf (None-Few); Transitional Epi Cells,Urine Few per hpf (None-Few)
[2020-07-10] MEDS ORDERED: cefTRIAXone 1,000 MG in 0.9 % Sodium Chloride Mini Bag 100 ML IVPB ONE (20:49)
[2020-07-10] MEDS ORDERED: Lactulose Oral Soln 20 GM/30 ML UDC PO ONE (20:49)
[2020-07-10] MEDS ORDERED: cefTRIAXone 1,000 MG in Water for inj. (sterile) 10 ML IVP ONE (21:00)
[2020-07-10] MEDS ORDERED: Naloxone 0.4 MG/ML INJ IVP PRN (21:41)
[2020-07-10] MEDS ORDERED: Acetaminophen 325 MG TABLET PO PRN (21:41)
[2020-07-10] MEDS ORDERED: Ondansetron 4 MG/2 ML VIAL IVP PRN (21:41)
[2020-07-10] MEDS ORDERED: Ipratropium/Albuterol Neb 3 ML IH PRN (22:02)
[2020-07-10] MEDS ORDERED: Dextrose Gel 15 GM/37.5 ML TUBE PO PRN ×2 (22:06)
[2020-07-10] MEDS ORDERED: D5% in Water 1,000 ML IVC PRN (22:06)
[2020-07-11] MEDS: Ipratropium/Albuterol Neb 3 ML IH SCH ×6 (00:03→20:25)
[2020-07-11] MEDS: *HR* Dextrose 50 % in Water (Vial) 50 ML VIAL IVP PRN ×2 (00:07→02:59)
[2020-07-11] MEDS ORDERED: diazePAM 5 MG TABLET PO ONE (00:35)
[2020-07-11] MEDS ORDERED: Lactulose 200 GM, Sodium Chloride IRRigation 700 ML RC ONE (01:00)
[2020-07-11 01:16] LABS: Hemoglobin 11.3 g/dL (11.5-15.4); Red Cell Distribution Width 14.6 % (11.5-14.5)
[2020-07-11] MEDS ORDERED: Perflutren Lipid Microsphere 1.3 ML in 0.9 % Sodium Chloride 8.7 ML IVP PRN (01:16)
[2020-07-11 01:18] LABS: Basophils % 0.5 %; Eosinophils # 0.1 K/mcL (0.0-0.6); Eosinophils % 1.8 %; Immature Granulocytes % 0.4 % (0-4); Immature Platelets 3.4 % (1.1-6.1); Lymphocytes # 0.9 K/mcL (0.6-4.6); Lymphocytes % 16.2 %; Mean Corpuscular HGB Conc 29.7 g/dL (31.6-35.5); Mean Corpuscular Hemoglobin 33.7 pg (28.0-33.3); Mean Corpuscular Volume 113.4 fL (83.0-100.0); Mean Platelet Volume 10.5 fL (9.4-12.4); Monocytes # 0.6 K/mcL (0.0-1.3); Monocytes % 10.2 %; Neutrophils # 3.9 K/mcL (1.6-8.9); Red Blood Count 3.35 M/mcL (3.82-4.97); Segmented Neutrophils % 70.9 %; White Blood Count 5.5 K/mcL (4.3-11.1)
[2020-07-11 01:25] LABS: Platelet Count 99 K/mcL (140-400)
[2020-07-11 01:46] LABS: Alanine Aminotransferase 17 Units/L (7-52); Albumin 3.6 g/dL (3.5-5.7); Albumin/Globulin Ratio 1.5 (1.1-2.2); Alkaline Phosphatase 63 Units/L (34-104); Aspartate Amino Transferase 24 Units/L (13-39); BUN/Creatinine Ratio 29 (6-26); Bilirubin,Total 0.8 mg/dL (0.3-1.0); Blood Urea Nitrogen 14 mg/dL (8-23); Calcium 8.1 mg/dL (8.6-10.3); Carbon Dioxide 34 mEq/L (23-29); Chloride 102 mEq/L (98-107); Globulin 2.4 g/dL (2.4-3.5); Glucose 40 mg/dL (70-105); Magnesium 1.4 mg/dL (1.6-2.6); Osmolality,Calculated 291 (280-300); Potassium 4.6 mEq/L (3.5-5.1); Sodium 142 mEq/L (136-145); eGFR For African Americans > 60 (> 60); eGFR For Non-African Americans > 60 (> 60)
[2020-07-11] MEDS ORDERED: Insulin LISPRO 300 UNITS/3 ML VIAL SQ SCH ×2 (07:30→21:00)
[2020-07-11] MEDS: Budesonide/Formoterol 80/4.5 1 PUFF INH IH SCH ×2 (07:55→20:25)
[2020-07-11 08:52] LABS: ABG Base Excess 11 mEq/L (-2 to 3); ABG HCO3 36 mEq/L (21-27); ABG Oxygen Saturation 94 % (95-98); ABG PCO2 48 mmHg (35-45); ABG PH 7.48 pH Units (7.32-7.45); ABG PO2 66 mmHg (85-104); ABG TCO2 37 mEq/L (20-26)
[2020-07-11 09:19] LABS: INR 1.2
[2020-07-11] MEDS: Furosemide 40 MG/4 ML VIAL IVP SCH ×2 (09:23→16:52)
[2020-07-11] MEDS: Lactulose Oral Soln 20 GM/30 ML UDC PO SCH ×4 (09:23→19:54)
[2020-07-11 11:55] LABS: Adenovirus Not Detected (Not Detect); Bordetella Pertussis Not Detected (Not Detect); Coronavirus 229E Not Detected (Not Detect); Coronavirus HKU1 Not Detected (Not Detect); Coronavirus NL63 Not Detected (Not Detect); Coronavirus OC43 Not Detected (Not Detect); Human Metapneumovirus Not Detected (Not Detect); Human Rhinovirus/Enterovirus Not Detected (Not Detect); Influenza A Subtype 2009 H1 Not Detected (Not Detect); Influenza B Not Detected (Not Detect); Parainfluenza Virus 1 Not Detected (Not Detect); Parainfluenza Virus 2 Not Detected (Not Detect); Parainfluenza Virus 3 Not Detected (Not Detect); Parainfluenza Virus 4 Not Detected (Not Detect); Respiratory Syncytial Virus Not Detected (Not Detect); SARS-CoV-2 Not Detected (Not Detect)
[2020-07-11 11:56] LABS: Chlamydophila pneumoniae Not Detected (Not Detect); Mycoplasma pneumoniae Not Detected (Not Detect)
[2020-07-11] MEDS: Sucralfate 1 GM TABLET PO SCH (19:53)
[2020-07-11] MEDS ORDERED: QUEtiapine Fumarate 100 MG TABLET PO SCH (21:00)
[2020-07-11] MEDS ORDERED: risperiDONE 1 MG TABLET PO SCH (21:00)
[2020-07-12] MEDS: Acetaminophen 325 MG TABLET PO PRN (03:57)
[2020-07-12] MEDS: Ipratropium/Albuterol Neb 3 ML IH SCH ×7 (04:06→23:45)
[2020-07-12 04:23] LABS: ABG Base Excess 12 mEq/L (-2 to 3); ABG HCO3 35 mEq/L (21-27); ABG Oxygen Saturation 97 % (95-98); ABG PCO2 39 mmHg (35-45); ABG PH 7.56 pH Units (7.32-7.45); ABG PO2 75 mmHg (85-104); ABG TCO2 36 mEq/L (20-26)
[2020-07-12] MEDS: Lactulose Oral Soln 20 GM/30 ML UDC PO SCH ×4 (08:01→20:33)
[2020-07-12] MEDS: Furosemide 40 MG/4 ML VIAL IVP SCH ×2 (08:02→16:35)
[2020-07-12] MEDS: Budesonide/Formoterol 80/4.5 1 PUFF INH IH SCH ×2 (08:02→19:49)
[2020-07-12 10:10] LABS: Basophils % 0.4 %; Eosinophils # 0.1 K/mcL (0.0-0.6); Eosinophils % 2.8 %; Hematocrit 36.8 % (35.3-44.9); Hemoglobin 11.6 g/dL (11.5-15.4); Immature Granulocytes % 0.4 % (0-4); Lymphocytes % 20.7 %; Mean Corpuscular HGB Conc 31.5 g/dL (31.6-35.5); Mean Corpuscular Hemoglobin 33.5 pg (28.0-33.3); Mean Corpuscular Volume 106.4 fL (83.0-100.0); Mean Platelet Volume 10.3 fL (9.4-12.4); Monocytes # 0.5 K/mcL (0.0-1.3); Monocytes % 10.2 %; Neutrophils # 3.3 K/mcL (1.6-8.9); Platelet Count 97 K/mcL (140-400); Red Blood Count 3.46 M/mcL (3.82-4.97); Red Cell Distribution Width 14.5 % (11.5-14.5); Segmented Neutrophils % 65.5 %
[2020-07-12 10:38] LABS: BUN/Creatinine Ratio 15 (6-26); Blood Urea Nitrogen 8 mg/dL (8-23); Calcium 8.5 mg/dL (8.6-10.3); Carbon Dioxide 34 mEq/L (23-29); Chloride 96 mEq/L (98-107); Glucose 144 mg/dL (70-105); Magnesium 1.1 mg/dL (1.6-2.6); Osmolality,Calculated 289 (280-300); Potassium 3.4 mEq/L (3.5-5.1); Sodium 139 mEq/L (136-145); eGFR For African Americans > 60 (> 60); eGFR For Non-African Americans > 60 (> 60)
[2020-07-12] MEDS: Sucralfate 1 GM TABLET PO SCH (20:33)
[2020-07-12] MEDS ORDERED: risperiDONE 1 MG TABLET PO SCH (21:00)
[2020-07-12] MEDS ORDERED: QUEtiapine Fumarate 100 MG TABLET PO SCH (21:00)
[2020-07-13] MEDS: Ipratropium/Albuterol Neb 3 ML IH SCH ×6 (03:44→23:39)
[2020-07-13] MEDS: Budesonide/Formoterol 80/4.5 1 PUFF INH IH SCH ×3 (07:54→19:56)
[2020-07-13 09:15] LABS: VBG HCO3 41 mEq/L (21-27); VBG PCO2 77 mmHg (41-51); VBG PH 7.33 pH Units (7.32-7.42); VBG PO2 76 mmHg (25-50)
[2020-07-13] MEDS: Lactulose Oral Soln 20 GM/30 ML UDC PO SCH ×4 (10:17→21:41)
[2020-07-13] MEDS: Furosemide 40 MG/4 ML VIAL IVP SCH (10:17)
[2020-07-13 11:08] LABS: Basophils % 0.5 %; Eosinophils # 0.1 K/mcL (0.0-0.6); Eosinophils % 2.9 %; Hematocrit 37.1 % (35.3-44.9); Hemoglobin 11.3 g/dL (11.5-15.4); Immature Granulocytes % 0.3 % (0-4); Lymphocytes # 0.9 K/mcL (0.6-4.6); Lymphocytes % 22.4 %; Mean Corpuscular HGB Conc 30.5 g/dL (31.6-35.5); Mean Corpuscular Hemoglobin 32.8 pg (28.0-33.3); Mean Corpuscular Volume 107.8 fL (83.0-100.0); Monocytes # 0.4 K/mcL (0.0-1.3); Monocytes % 11.5 %; Neutrophils # 2.4 K/mcL (1.6-8.9); Platelet Count 84 K/mcL (140-400); Red Blood Count 3.44 M/mcL (3.82-4.97); Red Cell Distribution Width 14.7 % (11.5-14.5); Segmented Neutrophils % 62.4 %; White Blood Count 3.8 K/mcL (4.3-11.1)
[2020-07-13 11:48] LABS: BUN/Creatinine Ratio 20 (6-26); Blood Urea Nitrogen 10 mg/dL (8-23); Calcium 8.4 mg/dL (8.6-10.3); Carbon Dioxide 31 mEq/L (23-29); Chloride 101 mEq/L (98-107); Glucose 112 mg/dL (70-105); Magnesium 1.4 mg/dL (1.6-2.6); Osmolality,Calculated 294 (280-300); Potassium 3.4 mEq/L (3.5-5.1); Sodium 142 mEq/L (136-145); eGFR For African Americans > 60 (> 60); eGFR For Non-African Americans > 60 (> 60)
[2020-07-13 13:57] LABS: Troponin I 0.03 ng/mL (< 0.04)
[2020-07-13 14:37] LABS: Amphetamine Screen,Urine Negative ng/mL (Cutoff=1000); Barbiturate Screen,Urine Negative ng/mL (Cutoff=200); Benzodiazepines Screen,Urine Negative ng/mL (Cutoff=200); Cannabinoid Screen,Urine Negative ng/mL (Cutoff = 50); Cocaine Screen,Urine Negative ng/mL (Cutoff= 300); Opiate Screen,Urine Negative ng/mL (Cutoff=300); Phencyclidine Screen,Urine Negative ng/mL (Cutoff=25)
[2020-07-13] MEDS ORDERED: Potassium Chloride Elixir 20 MEQ/15 ML UDC PO ONE (18:00)
[2020-07-13] MEDS: Sucralfate 1 GM TABLET PO SCH (21:41)
[2020-07-14] MEDS: Ipratropium/Albuterol Neb 3 ML IH SCH ×6 (03:19→23:48)
[2020-07-14 03:52] LABS: Basophils % 0.4 %; Lymphocytes % 18.9 %; Mean Corpuscular HGB Conc 31.6 g/dL (31.6-35.5); Mean Corpuscular Volume 103.9 fL (83.0-100.0)
[2020-07-14 03:53] LABS: Eosinophils # 0.1 K/mcL (0.0-0.6); Eosinophils % 2.6 %; Hematocrit 37.7 % (35.3-44.9); Hemoglobin 11.9 g/dL (11.5-15.4); Immature Granulocytes % 0.4 % (0-4); Immature Platelets 2.7 % (1.1-6.1); Lymphocytes # 0.9 K/mcL (0.6-4.6); Mean Corpuscular Hemoglobin 32.8 pg (28.0-33.3); Mean Platelet Volume 10.6 fL (9.4-12.4); Monocytes # 0.6 K/mcL (0.0-1.3); Monocytes % 11.9 %; Red Blood Count 3.63 M/mcL (3.82-4.97); Segmented Neutrophils % 65.8 %; White Blood Count 4.6 K/mcL (4.3-11.1)
[2020-07-14 04:00] LABS: Platelet Count 80 K/mcL (140-400)
[2020-07-14 04:08] LABS: BUN/Creatinine Ratio 19 (6-26); Blood Urea Nitrogen 9 mg/dL (8-23); Calcium 8.7 mg/dL (8.6-10.3); Carbon Dioxide 26 mEq/L (23-29); Chloride 101 mEq/L (98-107); Glucose 137 mg/dL (70-105); Osmolality,Calculated 289 (280-300); Potassium 3.1 mEq/L (3.5-5.1); Sodium 139 mEq/L (136-145); eGFR For African Americans > 60 (> 60); eGFR For Non-African Americans > 60 (> 60)
[2020-07-14] MEDS: Budesonide/Formoterol 80/4.5 1 PUFF INH IH SCH ×2 (07:38→19:52)
[2020-07-14] MEDS: Furosemide 40 MG/4 ML VIAL IVP SCH ×2 (09:09→17:15)
[2020-07-14 09:10] LABS: VBG HCO3 29 mEq/L (21-27); VBG PCO2 36 mmHg (41-51); VBG PH 7.51 pH Units (7.32-7.42); VBG PO2 220 mmHg (25-50)
[2020-07-14] MEDS: Lactulose Oral Soln 20 GM/30 ML UDC PO SCH ×4 (09:11→20:26)
[2020-07-14] MEDS: Insulin LISPRO 300 UNITS/3 ML VIAL SQ SCH ×2 (12:10→17:18)
[2020-07-14] MEDS: Sucralfate 1 GM TABLET PO SCH (20:26)
[2020-07-14] MEDS ORDERED: Insulin LISPRO 300 UNITS/3 ML VIAL SQ SCH (21:00)
[2020-07-15 02:41] LABS: VBG HCO3 30 mEq/L (21-27); VBG PCO2 50 mmHg (41-51); VBG PH 7.39 pH Units (7.32-7.42); VBG PO2 158 mmHg (25-50)
[2020-07-15 02:42] LABS: Hemoglobin 11.3 g/dL (11.5-15.4); Mean Corpuscular Volume 108.4 fL (83.0-100.0); Mean Platelet Volume 10.6 fL (9.4-12.4); Red Cell Distribution Width 14.5 % (11.5-14.5)
[2020-07-15 02:44] LABS: Basophils % 0.8 %; Eosinophils # 0.2 K/mcL (0.0-0.6); Eosinophils % 3.9 %; Hematocrit 36.1 % (35.3-44.9); Immature Granulocytes % 0.3 % (0-4); Lymphocytes # 0.8 K/mcL (0.6-4.6); Lymphocytes % 21.1 %; Mean Corpuscular HGB Conc 31.3 g/dL (31.6-35.5); Mean Corpuscular Hemoglobin 33.9 pg (28.0-33.3); Monocytes # 0.5 K/mcL (0.0-1.3); Monocytes % 13.1 %; Neutrophils # 2.4 K/mcL (1.6-8.9); Red Blood Count 3.33 M/mcL (3.82-4.97); Segmented Neutrophils % 60.8 %; White Blood Count 3.9 K/mcL (4.3-11.1)
[2020-07-15 02:47] LABS: Platelet Count 85 K/mcL (140-400)
[2020-07-15 03:06] LABS: BUN/Creatinine Ratio 18 (6-26); Blood Urea Nitrogen 10 mg/dL (8-23); Calcium 8.8 mg/dL (8.6-10.3); Carbon Dioxide 29 mEq/L (23-29); Chloride 103 mEq/L (98-107); Glucose 178 mg/dL (70-105); Magnesium 1.3 mg/dL (1.6-2.6); Osmolality,Calculated 291 (280-300); Potassium 4.1 mEq/L (3.5-5.1); Sodium 139 mEq/L (136-145); eGFR For African Americans > 60 (> 60); eGFR For Non-African Americans > 60 (> 60)
[2020-07-15] MEDS: Ipratropium/Albuterol Neb 3 ML IH SCH ×6 (03:23→23:23)
[2020-07-15] MEDS: Budesonide/Formoterol 80/4.5 1 PUFF INH IH SCH ×2 (07:45→20:06)
[2020-07-15] MEDS: Insulin LISPRO 300 UNITS/3 ML VIAL SQ SCH ×3 (08:27→16:14)
[2020-07-15] MEDS: Lactulose Oral Soln 20 GM/30 ML UDC PO SCH ×4 (09:06→19:47)
[2020-07-15] MEDS: Furosemide 40 MG/4 ML VIAL IVP SCH ×2 (09:11→16:14)
[2020-07-15] MEDS ORDERED: *HR* LORazepam 2 MG/ML VIAL IVP STA (12:57)
[2020-07-15] MEDS: Sucralfate 1 GM TABLET PO SCH (19:47)
[2020-07-15] MEDS: risperiDONE 1 MG TABLET PO SCH (19:47)
[2020-07-16] MEDS: Ipratropium/Albuterol Neb 3 ML IH SCH ×6 (03:21→23:39)
[2020-07-16 03:34] LABS: Hemoglobin 10.7 g/dL (11.5-15.4); Immature Granulocytes % 0.2 % (0-4); Red Cell Distribution Width 14.1 % (11.5-14.5)
[2020-07-16 03:35] LABS: Basophils % 0.7 %; Eosinophils # 0.2 K/mcL (0.0-0.6); Eosinophils % 3.9 %; Hematocrit 33.9 % (35.3-44.9); Immature Platelets 3.7 % (1.1-6.1); Lymphocytes # 0.9 K/mcL (0.6-4.6); Lymphocytes % 20.2 %; Mean Corpuscular HGB Conc 31.6 g/dL (31.6-35.5); Mean Corpuscular Hemoglobin 32.9 pg (28.0-33.3); Mean Corpuscular Volume 104.3 fL (83.0-100.0); Mean Platelet Volume 10.8 fL (9.4-12.4); Monocytes # 0.5 K/mcL (0.0-1.3); Monocytes % 12.1 %; Neutrophils # 2.7 K/mcL (1.6-8.9); Platelet Count 69 K/mcL (140-400); Red Blood Count 3.25 M/mcL (3.82-4.97); Segmented Neutrophils % 62.9 %; White Blood Count 4.3 K/mcL (4.3-11.1)
[2020-07-16 03:39] LABS: VBG HCO3 28 mEq/L (21-27); VBG PCO2 44 mmHg (41-51); VBG PH 7.42 pH Units (7.32-7.42); VBG PO2 185 mmHg (25-50)
[2020-07-16 03:43] LABS: BUN/Creatinine Ratio 25 (6-26); Blood Urea Nitrogen 10 mg/dL (8-23); Calcium 8.2 mg/dL (8.6-10.3); Carbon Dioxide 27 mEq/L (23-29); Chloride 99 mEq/L (98-107); Glucose 174 mg/dL (70-105); Osmolality,Calculated 281 (280-300); Potassium 3.4 mEq/L (3.5-5.1); Sodium 134 mEq/L (136-145); eGFR For African Americans > 60 (> 60); eGFR For Non-African Americans > 60 (> 60)
[2020-07-16] MEDS: Insulin LISPRO 300 UNITS/3 ML VIAL SQ SCH ×3 (07:49→16:35)
[2020-07-16] MEDS: Furosemide 40 MG/4 ML VIAL IVP SCH ×2 (07:50→16:35)
[2020-07-16] MEDS: Lactulose Oral Soln 20 GM/30 ML UDC PO SCH ×4 (07:50→20:25)
[2020-07-16] MEDS: Budesonide/Formoterol 80/4.5 1 PUFF INH IH SCH ×2 (12:09→20:01)
[2020-07-16] MEDS: Acetaminophen 325 MG TABLET PO PRN (15:15)
[2020-07-16] MEDS: Sucralfate 1 GM TABLET PO SCH (20:24)
[2020-07-16] MEDS: QUEtiapine Fumarate 25 MG TABLET PO SCH (20:24)
[2020-07-16] MEDS: risperiDONE 1 MG TABLET PO SCH (20:25)
[2020-07-17 03:33] LABS: BUN/Creatinine Ratio 19 (6-26); Blood Urea Nitrogen 9 mg/dL (8-23); Calcium 7.9 mg/dL (8.6-10.3); Carbon Dioxide 29 mEq/L (23-29); Chloride 100 mEq/L (98-107); Glucose 191 mg/dL (70-105); Magnesium 1.6 mg/dL (1.6-2.6); Osmolality,Calculated 286 (280-300); Potassium 3.7 mEq/L (3.5-5.1); Sodium 136 mEq/L (136-145); eGFR For African Americans > 60 (> 60); eGFR For Non-African Americans > 60 (> 60)
[2020-07-17] MEDS: Ipratropium/Albuterol Neb 3 ML IH SCH ×6 (03:50→23:09)
[2020-07-17] MEDS: Lactulose Oral Soln 20 GM/30 ML UDC PO SCH ×4 (07:30→20:21)
[2020-07-17] MEDS: Insulin LISPRO 300 UNITS/3 ML VIAL SQ SCH ×3 (07:30→16:41)
[2020-07-17] MEDS: Furosemide 40 MG/4 ML VIAL IVP SCH ×2 (07:30→16:57)
[2020-07-17] MEDS: Budesonide/Formoterol 80/4.5 1 PUFF INH IH SCH ×2 (08:05→20:01)
[2020-07-17 08:07] LABS: VBG Ionized Calcium 1.05 mmol/L (1.15-1.35)
[2020-07-17] MEDS ORDERED: Calcium Chloride 1,000 MG in 0.9 % Sodium Chloride 100 ML IVPB ONE (10:28)
[2020-07-17 11:43] LABS: ABG Base Excess 6 mEq/L (-2 to 3); ABG HCO3 31 mEq/L (21-27); ABG Oxygen Saturation 95 % (95-98); ABG PCO2 44 mmHg (35-45); ABG PH 7.45 pH Units (7.32-7.45); ABG PO2 73 mmHg (85-104); ABG TCO2 32 mEq/L (20-26)
[2020-07-17] MEDS ORDERED: Calcium Gluconate 1gm/50mL 1 GM/50 ML BAG IVPB ONE (12:28)
[2020-07-17] MEDS: Sucralfate 1 GM TABLET PO SCH (20:20)
[2020-07-17] MEDS: QUEtiapine Fumarate 25 MG TABLET PO SCH (20:20)
[2020-07-17] MEDS: risperiDONE 1 MG TABLET PO SCH (20:20)
[2020-07-17] MEDS: Acetaminophen 325 MG TABLET PO PRN (22:16)
[2020-07-18] MEDS: Ipratropium/Albuterol Neb 3 ML IH SCH ×6 (04:30→23:04)
[2020-07-18] MEDS: Budesonide/Formoterol 80/4.5 1 PUFF INH IH SCH ×2 (07:40→20:28)
[2020-07-18] MEDS: Lactulose Oral Soln 20 GM/30 ML UDC PO SCH ×4 (09:23→21:10)
[2020-07-18] MEDS: Insulin LISPRO 300 UNITS/3 ML VIAL SQ SCH ×3 (09:23→16:09)
[2020-07-18] MEDS: Furosemide 40 MG/4 ML VIAL IVP SCH ×2 (09:23→16:50)
[2020-07-18 10:26] LABS: Basophils % 0.5 %; Eosinophils # 0.1 K/mcL (0.0-0.6); Eosinophils % 2.4 %; Hematocrit 35.5 % (35.3-44.9); Hemoglobin 11.3 g/dL (11.5-15.4); Immature Granulocytes % 0.3 % (0-4); Lymphocytes # 0.6 K/mcL (0.6-4.6); Lymphocytes % 15.9 %; Mean Corpuscular HGB Conc 31.8 g/dL (31.6-35.5); Mean Corpuscular Hemoglobin 33.1 pg (28.0-33.3); Mean Corpuscular Volume 104.1 fL (83.0-100.0); Mean Platelet Volume 11.3 fL (9.4-12.4); Monocytes # 0.4 K/mcL (0.0-1.3); Monocytes % 10.9 %; Neutrophils # 2.7 K/mcL (1.6-8.9); Platelet Count 77 K/mcL (140-400); Red Blood Count 3.41 M/mcL (3.82-4.97); Red Cell Distribution Width 13.7 % (11.5-14.5); White Blood Count 3.8 K/mcL (4.3-11.1)
[2020-07-18 10:44] LABS: BUN/Creatinine Ratio 19 (6-26); Blood Urea Nitrogen 13 mg/dL (8-23); Calcium 8.6 mg/dL (8.6-10.3); Carbon Dioxide 25 mEq/L (23-29); Chloride 94 mEq/L (98-107); Glucose 382 mg/dL (70-105); Magnesium 1.3 mg/dL (1.6-2.6); Osmolality,Calculated 286 (280-300); Potassium 3.6 mEq/L (3.5-5.1); Sodium 130 mEq/L (136-145); eGFR For African Americans > 60 (> 60); eGFR For Non-African Americans > 60 (> 60)
[2020-07-18] MEDS: Acetaminophen 325 MG TABLET PO PRN (13:31)
[2020-07-18 17:14] LABS: Estimated Average Glucose 163 mg/dl
[2020-07-18] MEDS: QUEtiapine Fumarate 25 MG TABLET PO SCH (21:09)
[2020-07-18] MEDS: risperiDONE 1 MG TABLET PO SCH (21:11)
[2020-07-18] MEDS: Sucralfate 1 GM TABLET PO SCH (21:22)
[2020-07-19 01:25] LABS: Basophils % 0.5 %
[2020-07-19 01:27] LABS: Eosinophils # 0.1 K/mcL (0.0-0.6); Eosinophils % 2.3 %; Hematocrit 33.4 % (35.3-44.9); Hemoglobin 10.7 g/dL (11.5-15.4); Immature Granulocytes % 0.2 % (0-4); Lymphocytes % 22.2 %; Mean Corpuscular Hemoglobin 33.3 pg (28.0-33.3); Mean Platelet Volume 11.4 fL (9.4-12.4); Monocytes # 0.5 K/mcL (0.0-1.3); Monocytes % 11.9 %; Neutrophils # 2.7 K/mcL (1.6-8.9); Platelet Count 71 K/mcL (140-400); Red Blood Count 3.21 M/mcL (3.82-4.97); Red Cell Distribution Width 13.3 % (11.5-14.5); Segmented Neutrophils % 62.9 %; White Blood Count 4.3 K/mcL (4.3-11.1)
[2020-07-19 01:42] LABS: BUN/Creatinine Ratio 31 (6-26); Blood Urea Nitrogen 15 mg/dL (8-23); Calcium 8.7 mg/dL (8.6-10.3); Carbon Dioxide 27 mEq/L (23-29); Chloride 99 mEq/L (98-107); Glucose 212 mg/dL (70-105); Osmolality,Calculated 285 (280-300); Potassium 3.2 mEq/L (3.5-5.1); Sodium 134 mEq/L (136-145); eGFR For African Americans > 60 (> 60); eGFR For Non-African Americans > 60 (> 60)
[2020-07-19] MEDS: Ipratropium/Albuterol Neb 3 ML IH SCH ×5 (04:35→20:29)
[2020-07-19] MEDS: Lactulose Oral Soln 20 GM/30 ML UDC PO SCH ×4 (08:11→21:14)
[2020-07-19] MEDS: Furosemide 40 MG/4 ML VIAL IVP SCH ×2 (08:12→16:02)
[2020-07-19] MEDS: Insulin LISPRO 300 UNITS/3 ML VIAL SQ SCH ×3 (08:12→16:01)
[2020-07-19] MEDS: Budesonide/Formoterol 80/4.5 1 PUFF INH IH SCH ×2 (08:53→20:29)
[2020-07-19] MEDS ORDERED: Magnesium Oxide 400 MG TABLET PO SCH (09:00)
[2020-07-19] MEDS ORDERED: Insulin LISPRO 300 UNITS/3 ML VIAL SQ STA (20:48)
[2020-07-19] MEDS ORDERED: Insulin DETEMIR 100 UNIT/ML X5UNITS SQ SCH (21:00)
[2020-07-19] MEDS: Sucralfate 1 GM TABLET PO SCH (21:12)
[2020-07-19] MEDS: risperiDONE 1 MG TABLET PO SCH (21:13)
[2020-07-19] MEDS: QUEtiapine Fumarate 25 MG TABLET PO SCH (21:13)
[2020-07-20] MEDS: Ipratropium/Albuterol Neb 3 ML IH SCH ×6 (04:04→20:15)
[2020-07-20 04:55] LABS: BUN/Creatinine Ratio 26 (6-26); Blood Urea Nitrogen 14 mg/dL (8-23); Carbon Dioxide 29 mEq/L (23-29); Chloride 100 mEq/L (98-107); Glucose 233 mg/dL (70-105); Magnesium 1.5 mg/dL (1.6-2.6); Osmolality,Calculated 292 (280-300); Potassium 3.7 mEq/L (3.5-5.1); Sodium 137 mEq/L (136-145); eGFR For African Americans > 60 (> 60); eGFR For Non-African Americans > 60 (> 60)
[2020-07-20] MEDS: Budesonide/Formoterol 80/4.5 1 PUFF INH IH SCH ×2 (07:39→20:15)
[2020-07-20] MEDS: Magnesium Oxide 400 MG TABLET PO SCH ×2 (08:10→21:30)
[2020-07-20] MEDS: Lactulose Oral Soln 20 GM/30 ML UDC PO SCH ×4 (08:10→21:30)
[2020-07-20] MEDS: Furosemide 40 MG/4 ML VIAL IVP SCH ×2 (08:10→17:10)
[2020-07-20] MEDS: Insulin LISPRO 300 UNITS/3 ML VIAL SQ SCH ×3 (08:24→17:14)
[2020-07-20] MEDS ORDERED: Isovue-370 500 ML BOTTLE IVP ONE (10:28)
[2020-07-20 12:49] LABS: Adenovirus Not Detected (Not Detect); Coronavirus 229E Not Detected (Not Detect); Coronavirus HKU1 Not Detected (Not Detect); Coronavirus NL63 Not Detected (Not Detect); Coronavirus OC43 Not Detected (Not Detect); Human Metapneumovirus Not Detected (Not Detect); Human Rhinovirus/Enterovirus Not Detected (Not Detect); Influenza A Subtype 2009 H1 Not Detected (Not Detect); SARS-CoV-2 Not Detected (Not Detect)
[2020-07-20 12:50] LABS: Bordetella Pertussis Not Detected (Not Detect); Chlamydophila pneumoniae Not Detected (Not Detect); Influenza B Not Detected (Not Detect); Mycoplasma pneumoniae Not Detected (Not Detect); Parainfluenza Virus 1 Not Detected (Not Detect); Parainfluenza Virus 2 Not Detected (Not Detect); Parainfluenza Virus 3 Not Detected (Not Detect); Parainfluenza Virus 4 Not Detected (Not Detect); Respiratory Syncytial Virus Not Detected (Not Detect)
[2020-07-20] MEDS ORDERED: Insulin DETEMIR 100 UNIT/ML X5UNITS SQ SCH (21:00)
[2020-07-20] MEDS ORDERED: Insulin LISPRO 300 UNITS/3 ML VIAL SQ STA ×2 (21:10→22:44)
[2020-07-20] MEDS: QUEtiapine Fumarate 25 MG TABLET PO SCH (21:30)
[2020-07-20] MEDS: risperiDONE 1 MG TABLET PO SCH (21:30)
[2020-07-20] MEDS: Sucralfate 1 GM TABLET PO SCH (21:30)
[2020-07-21] MEDS: Ipratropium/Albuterol Neb 3 ML IH SCH ×7 (00:15→23:21)
[2020-07-21 06:34] LABS: Basophils % 0.4 %; Immature Granulocytes % 0.2 % (0-4); Mean Platelet Volume 11.3 fL (9.4-12.4)
[2020-07-21 06:36] LABS: Eosinophils # 0.1 K/mcL (0.0-0.6); Eosinophils % 2.8 %; Hematocrit 34.5 % (35.3-44.9); Immature Platelets 4.3 % (1.1-6.1); Lymphocytes # 0.9 K/mcL (0.6-4.6); Lymphocytes % 19.7 %; Mean Corpuscular HGB Conc 31.9 g/dL (31.6-35.5); Mean Corpuscular Hemoglobin 33.3 pg (28.0-33.3); Mean Corpuscular Volume 104.5 fL (83.0-100.0); Monocytes # 0.5 K/mcL (0.0-1.3); Monocytes % 11.3 %; Neutrophils # 3.1 K/mcL (1.6-8.9); Red Cell Distribution Width 13.5 % (11.5-14.5); Segmented Neutrophils % 65.6 %; White Blood Count 4.7 K/mcL (4.3-11.1)
[2020-07-21 06:40] LABS: Platelet Count 84 K/mcL (140-400)
[2020-07-21 06:53] LABS: BUN/Creatinine Ratio 27 (6-26); Blood Urea Nitrogen 14 mg/dL (8-23); Calcium 9.1 mg/dL (8.6-10.3); Carbon Dioxide 31 mEq/L (23-29); Chloride 97 mEq/L (98-107); Glucose 255 mg/dL (70-105); Magnesium 1.5 mg/dL (1.6-2.6); Osmolality,Calculated 291 (280-300); Potassium 3.5 mEq/L (3.5-5.1); Sodium 136 mEq/L (136-145); eGFR For African Americans > 60 (> 60); eGFR For Non-African Americans > 60 (> 60)
[2020-07-21] MEDS: Budesonide/Formoterol 80/4.5 1 PUFF INH IH SCH ×2 (07:49→20:03)
[2020-07-21] MEDS: Lactulose Oral Soln 20 GM/30 ML UDC PO SCH ×4 (09:12→21:21)
[2020-07-21] MEDS: Magnesium Oxide 400 MG TABLET PO SCH ×2 (09:12→21:20)
[2020-07-21] MEDS: Furosemide 40 MG/4 ML VIAL IVP SCH ×2 (09:13→16:49)
[2020-07-21] MEDS: Insulin LISPRO 300 UNITS/3 ML VIAL SQ SCH ×3 (09:13→16:50)
[2020-07-21 16:37] LABS: Bacteria,Urine Few per hpf (None-Few); Bilirubin,Urine Negative (Negative); Blood,Urine Negative (Negative); Clarity,Urine Clear (Clear); Color,Urine Light-Yellow (Yellow); Glucose,Urine (UA) Normal (Normal); Hyaline Casts,Urine Few per lpf (None Seen); Ketones,Urine Negative (Negative); Leukocyte Esterase,Urine Moderate (Negative); Mucus,Urine Few per lpf (None-Few); Nitrite,Urine Negative (Negative); Protein,Urine Negative (Neg-Trace); RBC,Urine 0-3 per hpf (0-3); Specific Gravity,Urine 1.011 (1.010-1.025); Squamous Epithelial Cell,Urine Few per hpf (None-Few); Urobilinogen,Urine Normal (Normal); WBC,Urine 15-30 per hpf (0-3)
[2020-07-21] MEDS ORDERED: Insulin DETEMIR 100 UNIT/ML X5UNITS SQ SCH (21:00)
[2020-07-21] MEDS: Sucralfate 1 GM TABLET PO SCH (21:19)
[2020-07-21] MEDS: QUEtiapine Fumarate 25 MG TABLET PO SCH (21:20)
[2020-07-21] MEDS: risperiDONE 1 MG TABLET PO SCH (21:20)
[2020-07-22] MEDS: Ipratropium/Albuterol Neb 3 ML IH SCH ×4 (03:48→15:48)
[2020-07-22 04:04] LABS: BUN/Creatinine Ratio 27 (6-26); Blood Urea Nitrogen 15 mg/dL (8-23); Calcium 8.8 mg/dL (8.6-10.3); Carbon Dioxide 31 mEq/L (23-29); Chloride 97 mEq/L (98-107); Glucose 266 mg/dL (70-105); Osmolality,Calculated 294 (280-300); Potassium 3.3 mEq/L (3.5-5.1); Sodium 137 mEq/L (136-145); eGFR For African Americans > 60 (> 60); eGFR For Non-African Americans > 60 (> 60)
[2020-07-22] MEDS: Budesonide/Formoterol 80/4.5 1 PUFF INH IH SCH (07:49)
[2020-07-22] MEDS: Magnesium Oxide 400 MG TABLET PO SCH (08:17)
[2020-07-22] MEDS: Furosemide 40 MG/4 ML VIAL IVP SCH ×2 (08:18→16:53)
[2020-07-22] MEDS: Insulin LISPRO 300 UNITS/3 ML VIAL SQ SCH ×3 (08:18→16:52)
[2020-07-22] MEDS: Lactulose Oral Soln 20 GM/30 ML UDC PO SCH ×3 (08:18→16:51)
[2020-07-22] MEDS ORDERED: Azithromycin 250 MG TABLET PO ONE (15:05)
[2020-07-22] MEDS ORDERED: Albuterol 2.5 MG/3 ML NEBULIZER IH PRN (15:08)
[2020-07-22 16:34] VITALS: BP 106/68
[2020-07-23] MEDS ORDERED: Furosemide 40 MG TABLET PO SCH (08:00)
[2020-07-23] MEDS ORDERED: Azithromycin 250 MG TABLET PO SCH (09:00)
== END 2020-07-22 19:24 | disposition home health service (06) | DRG 441 ==
LOC: 2ANU 17:29 → EMEROOARM 17:29 → SUATTDRO 21:01 → 2ANU 21:45 → SUATTDRO 07-11 13:53
PROVIDERS: ADMIT Family Medicine; ATTEND General Practice

== ENCOUNTER 2022-01-21 02:07 | Inpatient (IN) ==
[2022-01-21] MEDS ORDERED: 0.9 % Sodium Chloride 1,000 ML IVC ONE (02:15)
[2022-01-21] MEDS ORDERED: Acetaminophen 325 MG TABLET PO ONE (02:15)
[2022-01-21] MEDS ORDERED: Ibuprofen 800 MG TABLET PO ONE (02:35)
[2022-01-21 03:06] LABS: Basophils % 0.4 %; Eosinophils % 0.3 %; Hematocrit 28.1 % (35.3-44.9); Hemoglobin 8.9 g/dL (11.5-15.4); Immature Granulocytes % 0.5 % (0-4); Lymphocytes # 0.6 K/mcL (0.6-4.6); Lymphocytes % 7.8 %; Mean Corpuscular HGB Conc 31.7 g/dL (31.6-35.5); Mean Corpuscular Hemoglobin 30.8 pg (28.0-33.3); Mean Corpuscular Volume 97.2 fL (83.0-100.0); Monocytes # 0.9 K/mcL (0.0-1.3); Monocytes % 11.2 %; Platelet Count 122 K/mcL (140-400); Red Blood Count 2.89 M/mcL (3.82-4.97); Red Cell Distribution Width 15.3 % (11.5-14.5); Segmented Neutrophils % 79.8 %; White Blood Count 7.6 K/mcL (4.3-11.1)
[2022-01-21 03:10] LABS: Bilirubin,Urine Negative (Negative); Blood,Urine Trace (Negative); Clarity,Urine Ex.Turbid (Clear); Color,Urine Yellow (Yellow); Glucose,Urine (UA) 150 mg/dL (Normal); Ketones,Urine Trace mg/dL (Negative); Leukocyte Esterase,Urine Large (Negative); Mucus,Urine Few per lpf (None-Few); Nitrite,Urine Negative (Negative); PH,Urine 5.5 pH Units (5.0-8.0); Protein,Urine 50 mg/dL (Neg-Trace); Specific Gravity,Urine 1.019 (1.010-1.025); Squamous Epithelial Cell,Urine Few per hpf (None-Few); Urobilinogen,Urine Normal (Normal); WBC,Urine TNTC per hpf (0-3)
[2022-01-21] MEDS ORDERED: cefTRIAXone 1,000 MG in Water for inj. (sterile) 10 ML IVP ONE (03:11)
[2022-01-21 03:14] LABS: INR 1.5; Prothrombin Time 17.2 Seconds (9.4-12.1)
[2022-01-21 03:38] LABS: Alanine Aminotransferase 17 Units/L (7-52); Albumin 3.1 g/dL (3.5-5.7); Albumin/Globulin Ratio 1.1 (1.1-2.2); Alkaline Phosphatase 90 Units/L (34-104); Aspartate Amino Transferase 26 Units/L (13-39); BUN/Creatinine Ratio 19 (6-26); Bilirubin,Direct 0.4 mg/dL (0.0-0.2); Bilirubin,Indirect 0.7 mg/dL (0.0-1.0); Bilirubin,Total 1.1 mg/dL (0.3-1.0); Blood Urea Nitrogen 13 mg/dL (8-23); Calcium 8.7 mg/dL (8.6-10.3); Carbon Dioxide 26 mEq/L (23-29); Chloride 91 mEq/L (98-107); Globulin 2.7 g/dL (2.4-3.5); Glucose 225 mg/dL (70-105); Lipase 14 Units/L (11-82); Osmolality,Calculated 271 (280-300); Potassium 4.2 mEq/L (3.5-5.1); Sodium 127 mEq/L (136-145); Total Protein 5.8 g/dL (6.4-8.9); Troponin I < 0.03 ng/mL (< 0.04); eGFR For African Americans > 60 (> 60); eGFR For Non-African Americans > 60 (> 60)
[2022-01-21 03:40] LABS: Influenza A PCR Negative (Negative); Influenza B PCR Negative (Negative); Resp. Syncytial Virus PCR Negative (Negative)
[2022-01-21 03:48] LABS: Neutrophils # 6.1 K/mcL (1.6-8.9); SARS-CoV-2 by PCR (In House) Negative (Negative)
[2022-01-21] MEDS ORDERED: Naloxone 0.4 MG/ML INJ IVP PRN (04:15)
[2022-01-21] MEDS ORDERED: Melatonin 3 MG TABLET PO PRN (04:15)
[2022-01-21] MEDS: 0.9 % Sodium Chloride 1,000 ML IVC SCH ×2 (04:29→04:53)
[2022-01-21] MEDS: *HR* Heparin 5,000 UNIT/ML VIAL SQ SCH ×3 (05:55→21:05)
[2022-01-21] MEDS: Insulin LISPRO 300 UNITS/3 ML VIAL SUBQ SCH ×4 (05:58→20:14)
[2022-01-21 06:23] LABS: Magnesium 1.4 mg/dL (1.6-2.6); Phosphorous 4.4 mg/dL (2.7-4.5)
[2022-01-21] MEDS ORDERED: Magnesium Sulfate 1 GM/102 ML PIGGYBACK IVPB ONE (06:41)
[2022-01-21] MEDS ORDERED: 0.9 % Sodium Chloride 1,000 ML IVC SCH (07:00)
[2022-01-21] MEDS: Ipratropium/Albuterol Neb 3 ML IH SCH ×5 (08:01→23:39)
[2022-01-21 08:27] LABS: BUN/Creatinine Ratio 20 (6-26); Blood Urea Nitrogen 15 mg/dL (8-23); Carbon Dioxide 27 mEq/L (23-29); Chloride 94 mEq/L (98-107); Glucose 151 mg/dL (70-105); Osmolality,Calculated 264 (280-300); Potassium 4.2 mEq/L (3.5-5.1); Sodium 125 mEq/L (136-145); eGFR For African Americans > 60 (> 60); eGFR For Non-African Americans > 60 (> 60)
[2022-01-21] MEDS: Ondansetron ODT 4 MG TAB.RAPDIS SL PRN (11:24)
[2022-01-21 12:33] LABS: BUN/Creatinine Ratio 23 (6-26); Blood Urea Nitrogen 16 mg/dL (8-23); Carbon Dioxide 27 mEq/L (23-29); Chloride 93 mEq/L (98-107); Glucose 168 mg/dL (70-105); Osmolality,Calculated 267 (280-300); Potassium 4.2 mEq/L (3.5-5.1); Sodium 126 mEq/L (136-145); eGFR For African Americans > 60 (> 60); eGFR For Non-African Americans > 60 (> 60)
[2022-01-21] MEDS ORDERED: Albuterol 2.5 MG/3 ML NEBULIZER IH PRN (15:21)
[2022-01-21] MEDS ORDERED: Dextrose Gel 15 GM/37.5 ML TUBE PO PRN ×2 (15:25)
[2022-01-21] MEDS ORDERED: D5% in Water 1,000 ML IVC PRN (15:25)
[2022-01-21] MEDS ORDERED: *HR* Dextrose 50 % in Water (Syg) 50 ML SYRINGE IVP PRN (15:25)
[2022-01-21 16:34] LABS: BUN/Creatinine Ratio 22 (6-26); Blood Urea Nitrogen 15 mg/dL (8-23); Calcium 8.1 mg/dL (8.6-10.3); Carbon Dioxide 27 mEq/L (23-29); Chloride 93 mEq/L (98-107); Glucose 202 mg/dL (70-105); Osmolality,Calculated 267 (280-300); Potassium 4.4 mEq/L (3.5-5.1); Sodium 125 mEq/L (136-145); eGFR For African Americans > 60 (> 60); eGFR For Non-African Americans > 60 (> 60)
[2022-01-21] MEDS: QUEtiapine Fumarate 25 MG TABLET PO SCH (17:24)
[2022-01-21] MEDS: risperiDONE 1 MG TABLET PO SCH (17:24)
[2022-01-21] MEDS: Insulin DETEMIR 100 UNIT/ML X5UNITS SUBQ SCH (20:17)
[2022-01-21 20:28] LABS: BUN/Creatinine Ratio 27 (6-26); Blood Urea Nitrogen 15 mg/dL (8-23); Calcium 8.2 mg/dL (8.6-10.3); Carbon Dioxide 28 mEq/L (23-29); Chloride 94 mEq/L (98-107); Glucose 168 mg/dL (70-105); Osmolality,Calculated 265 (280-300); Potassium 4.9 mEq/L (3.5-5.1); Sodium 125 mEq/L (136-145); eGFR For African Americans > 60 (> 60); eGFR For Non-African Americans > 60 (> 60)
[2022-01-21] MEDS: Budesonide/Formoterol 80/4.5 1 PUFF INH IH SCH (20:30)
[2022-01-21] MEDS: Lactulose Oral Soln 20 GM/30 ML UDC PO SCH (21:05)
[2022-01-22] MEDS ORDERED: Acetaminophen IV 1,000 MG/100 ML BAG IVPB ONE (01:01)
[2022-01-22 01:47] LABS: BUN/Creatinine Ratio 20 (6-26); Blood Urea Nitrogen 13 mg/dL (8-23); Calcium 8.5 mg/dL (8.6-10.3); Carbon Dioxide 29 mEq/L (23-29); Chloride 94 mEq/L (98-107); Glucose 160 mg/dL (70-105); Osmolality,Calculated 270 (280-300); Potassium 4.5 mEq/L (3.5-5.1); Sodium 128 mEq/L (136-145); eGFR For African Americans > 60 (> 60); eGFR For Non-African Americans > 60 (> 60)
[2022-01-22] MEDS: Ondansetron ODT 4 MG TAB.RAPDIS SL PRN ×2 (02:58→20:20)
[2022-01-22] MEDS: Ipratropium/Albuterol Neb 3 ML IH SCH ×5 (03:37→20:29)
[2022-01-22 05:25] LABS: Basophils % 0.3 %; Eosinophils # 0.1 K/mcL (0.0-0.6); Immature Granulocytes % 0.3 % (0-4); Lymphocytes # 0.5 K/mcL (0.6-4.6); Lymphocytes % 7.9 %; Mean Corpuscular HGB Conc 30.8 g/dL (31.6-35.5); Mean Corpuscular Hemoglobin 30.8 pg (28.0-33.3); Mean Platelet Volume 10.8 fL (9.4-12.4); Monocytes % 17.2 %; Neutrophils # 4.3 K/mcL (1.6-8.9); Platelet Count 122 K/mcL (140-400); Red Cell Distribution Width 15.5 % (11.5-14.5); Segmented Neutrophils % 73.3 %; White Blood Count 5.8 K/mcL (4.3-11.1)
[2022-01-22 05:48] LABS: BUN/Creatinine Ratio 23 (6-26); Blood Urea Nitrogen 13 mg/dL (8-23); Calcium 8.1 mg/dL (8.6-10.3); Carbon Dioxide 28 mEq/L (23-29); Chloride 95 mEq/L (98-107); Glucose 155 mg/dL (70-105); Osmolality,Calculated 269 (280-300); Potassium 4.3 mEq/L (3.5-5.1); Sodium 128 mEq/L (136-145); eGFR For African Americans > 60 (> 60); eGFR For Non-African Americans > 60 (> 60)
[2022-01-22] MEDS: *HR* Heparin 5,000 UNIT/ML VIAL SQ SCH ×3 (05:57→22:04)
[2022-01-22 06:05] LABS: Platelet Estimate Slight Decrease (Normal)
[2022-01-22] MEDS: Budesonide/Formoterol 80/4.5 1 PUFF INH IH SCH ×2 (07:34→20:29)
[2022-01-22 08:08] LABS: Magnesium 1.7 mg/dL (1.6-2.6)
[2022-01-22] MEDS: Cefepime HCl 1,000 MG in 0.9 % Sodium Chloride 10 ML IVP SCH ×2 (08:21→17:48)
[2022-01-22] MEDS: Lactulose Oral Soln 20 GM/30 ML UDC PO SCH ×3 (08:22→20:16)
[2022-01-22] MEDS: risperiDONE 1 MG TABLET PO SCH (08:23)
[2022-01-22] MEDS: Tolterodine LA (24 HR) 4 MG CAP.ER.24H PO SCH (08:24)
[2022-01-22] MEDS: Furosemide 40 MG TABLET PO SCH (08:24)
[2022-01-22] MEDS: Spironolactone 25 MG TABLET PO SCH (08:24)
[2022-01-22] MEDS: QUEtiapine Fumarate 25 MG TABLET PO SCH (08:24)
[2022-01-22] MEDS: Magnesium Oxide 400 MG TABLET PO SCH (08:24)
[2022-01-22] MEDS: Insulin LISPRO 300 UNITS/3 ML VIAL SUBQ SCH ×4 (08:34→22:09)
[2022-01-22] MEDS ORDERED: cefTRIAXone 1,000 MG in 0.9 % Sodium Chloride Mini Bag 100 ML IVPB SCH (09:00)
[2022-01-22] MEDS ORDERED: OMEGA ACID ETHYL ESTERS PO SCH (09:00)
[2022-01-22] MEDS: *HR* OxyCODONE Immed Rel 5 MG TABLET PO PRN (10:33)
[2022-01-22] MEDS: Moxifloxacin OPTH Drops 3 ML BOTTLE BOTH EYES SCH ×3 (10:33→20:18)
[2022-01-22] MEDS: Acetaminophen 325 MG TABLET PO SCH ×2 (13:59→20:15)
[2022-01-22] MEDS: Insulin DETEMIR 100 UNIT/ML X5UNITS SUBQ SCH (20:28)
[2022-01-23] MEDS: Cefepime HCl 1,000 MG in 0.9 % Sodium Chloride 10 ML IVP SCH ×2 (00:17→08:02)
[2022-01-23] MEDS: *HR* OxyCODONE Immed Rel 5 MG TABLET PO PRN ×2 (01:29→17:21)
[2022-01-23 01:50] LABS: Basophils % 0.8 %; Eosinophils # 0.1 K/mcL (0.0-0.6); Eosinophils % 2.5 %; Hematocrit 27.5 % (35.3-44.9); Hemoglobin 8.5 g/dL (11.5-15.4); Immature Granulocytes % 0.6 % (0-4); Lymphocytes # 0.4 K/mcL (0.6-4.6); Mean Corpuscular HGB Conc 30.9 g/dL (31.6-35.5); Mean Corpuscular Hemoglobin 30.2 pg (28.0-33.3); Mean Corpuscular Volume 97.9 fL (83.0-100.0); Mean Platelet Volume 9.7 fL (9.4-12.4); Monocytes # 0.8 K/mcL (0.0-1.3); Monocytes % 21.5 %; Neutrophils # 2.3 K/mcL (1.6-8.9); Platelet Count 116 K/mcL (140-400); Red Blood Count 2.81 M/mcL (3.82-4.97); Red Cell Distribution Width 15.3 % (11.5-14.5); Segmented Neutrophils % 63.6 %; White Blood Count 3.6 K/mcL (4.3-11.1)
[2022-01-23 02:24] LABS: % Iron Saturation 5 % (15-50); BUN/Creatinine Ratio 15 (6-26); Blood Urea Nitrogen 8 mg/dL (8-23); Calcium 8.3 mg/dL (8.6-10.3); Carbon Dioxide 29 mEq/L (23-29); Chloride 96 mEq/L (98-107); Glucose 204 mg/dL (70-105); Iron 16 mcg/dL (50-170); Magnesium 1.4 mg/dL (1.6-2.6); Osmolality,Calculated 278 (280-300); Phosphorous 2.4 mg/dL (2.7-4.5); Potassium 3.8 mEq/L (3.5-5.1); Sodium 132 mEq/L (136-145); Transferrin 216 mg/dL (203-362); eGFR For African Americans > 60 (> 60); eGFR For Non-African Americans > 60 (> 60)
[2022-01-23 02:30] LABS: Ferritin 49 ng/mL (10-120)
[2022-01-23 02:35] LABS: Folate 21.5 ng/mL (3.0-16.0)
[2022-01-23] MEDS: Ipratropium/Albuterol Neb 3 ML IH SCH ×7 (04:03→23:35)
[2022-01-23] MEDS: *HR* Heparin 5,000 UNIT/ML VIAL SQ SCH ×3 (05:06→21:21)
[2022-01-23] MEDS: Budesonide/Formoterol 80/4.5 1 PUFF INH IH SCH ×2 (07:19→19:55)
[2022-01-23] MEDS: Insulin LISPRO 300 UNITS/3 ML VIAL SUBQ SCH ×4 (07:53→21:24)
[2022-01-23] MEDS: Lactulose Oral Soln 20 GM/30 ML UDC PO SCH ×3 (08:01→21:19)
[2022-01-23] MEDS: Spironolactone 25 MG TABLET PO SCH (08:03)
[2022-01-23] MEDS: Acetaminophen 325 MG TABLET PO SCH ×2 (08:03→21:20)
[2022-01-23] MEDS: QUEtiapine Fumarate 25 MG TABLET PO SCH (08:03)
[2022-01-23] MEDS: Tolterodine LA (24 HR) 4 MG CAP.ER.24H PO SCH (08:04)
[2022-01-23] MEDS: Magnesium Oxide 400 MG TABLET PO SCH (08:04)
[2022-01-23] MEDS: Furosemide 40 MG TABLET PO SCH (08:04)
[2022-01-23] MEDS: risperiDONE 1 MG TABLET PO SCH (08:04)
[2022-01-23] MEDS: Moxifloxacin OPTH Drops 3 ML BOTTLE BOTH EYES SCH ×3 (08:05→21:21)
[2022-01-23] MEDS: Ondansetron ODT 4 MG TAB.RAPDIS SL PRN (14:16)
[2022-01-23] MEDS: Melatonin 3 MG TABLET PO SCH (21:20)
[2022-01-23] MEDS: Insulin DETEMIR 100 UNIT/ML X5UNITS SUBQ SCH (21:23)
[2022-01-24 01:41] LABS: Basophils % 0.5 %; Eosinophils # 0.2 K/mcL (0.0-0.6); Eosinophils % 4.3 %; Immature Granulocytes % 0.5 % (0-4); Lymphocytes # 0.7 K/mcL (0.6-4.6); Lymphocytes % 19.1 %; Mean Corpuscular HGB Conc 30.8 g/dL (31.6-35.5); Mean Corpuscular Hemoglobin 29.9 pg (28.0-33.3); Mean Platelet Volume 10.1 fL (9.4-12.4); Monocytes # 0.8 K/mcL (0.0-1.3); Monocytes % 20.7 %; Neutrophils # 2.1 K/mcL (1.6-8.9); Platelet Count 124 K/mcL (140-400); Red Blood Count 2.68 M/mcL (3.82-4.97); Red Cell Distribution Width 15.4 % (11.5-14.5); Segmented Neutrophils % 54.9 %; White Blood Count 3.8 K/mcL (4.3-11.1)
[2022-01-24 01:57] LABS: BUN/Creatinine Ratio 12 (6-26); Blood Urea Nitrogen 6 mg/dL (8-23); Carbon Dioxide 31 mEq/L (23-29); Chloride 96 mEq/L (98-107); Glucose 207 mg/dL (70-105); Magnesium 1.5 mg/dL (1.6-2.6); Osmolality,Calculated 280 (280-300); Phosphorous 3.2 mg/dL (2.7-4.5); Potassium 3.5 mEq/L (3.5-5.1); Sodium 133 mEq/L (136-145); eGFR For African Americans > 60 (> 60); eGFR For Non-African Americans > 60 (> 60)
[2022-01-24] MEDS: Ipratropium/Albuterol Neb 3 ML IH SCH ×2 (04:02→07:45)
[2022-01-24] MEDS: *HR* Heparin 5,000 UNIT/ML VIAL SQ SCH ×3 (05:50→21:07)
[2022-01-24] MEDS: Budesonide/Formoterol 80/4.5 1 PUFF INH IH SCH ×2 (07:45→21:05)
[2022-01-24] MEDS: Insulin LISPRO 300 UNITS/3 ML VIAL SUBQ SCH ×4 (08:26→21:23)
[2022-01-24] MEDS: Lactulose Oral Soln 20 GM/30 ML UDC PO SCH ×3 (09:24→21:07)
[2022-01-24] MEDS: Tolterodine LA (24 HR) 4 MG CAP.ER.24H PO SCH (09:25)
[2022-01-24] MEDS: QUEtiapine Fumarate 25 MG TABLET PO SCH ×2 (09:25→21:06)
[2022-01-24] MEDS: Moxifloxacin OPTH Drops 3 ML BOTTLE BOTH EYES SCH ×3 (09:25→21:07)
[2022-01-24] MEDS: risperiDONE 1 MG TABLET PO SCH ×2 (09:25→21:06)
[2022-01-24] MEDS: Magnesium Oxide 400 MG TABLET PO SCH (09:26)
[2022-01-24] MEDS: Furosemide 40 MG TABLET PO SCH (09:26)
[2022-01-24] MEDS: Acetaminophen 325 MG TABLET PO SCH ×2 (09:26→21:06)
[2022-01-24] MEDS: Spironolactone 25 MG TABLET PO SCH (09:26)
[2022-01-24] MEDS ORDERED: Vancomycin 1,750 MG/517.5 ML IV.SOLN IVPB ONE (11:50)
[2022-01-24] MEDS: Melatonin 3 MG TABLET PO SCH (21:07)
[2022-01-24] MEDS: Insulin DETEMIR 100 UNIT/ML X5UNITS SUBQ SCH (21:23)
[2022-01-25] MEDS: Vancomycin 1,750 MG/517.5 ML IV.SOLN IVPB SCH ×2 (02:08→12:46)
[2022-01-25 02:33] LABS: Basophils % 0.7 %; Eosinophils # 0.2 K/mcL (0.0-0.6); Eosinophils % 4.8 %; Hematocrit 26.8 % (35.3-44.9); Hemoglobin 8.1 g/dL (11.5-15.4); Immature Granulocytes % 0.7 % (0-4); Lymphocytes # 0.9 K/mcL (0.6-4.6); Lymphocytes % 19.2 %; Mean Corpuscular HGB Conc 30.2 g/dL (31.6-35.5); Mean Corpuscular Volume 99.3 fL (83.0-100.0); Mean Platelet Volume 10.1 fL (9.4-12.4); Monocytes # 0.6 K/mcL (0.0-1.3); Neutrophils # 2.9 K/mcL (1.6-8.9); Platelet Count 121 K/mcL (140-400); Red Cell Distribution Width 15.6 % (11.5-14.5); Segmented Neutrophils % 62.6 %; White Blood Count 4.6 K/mcL (4.3-11.1)
[2022-01-25 02:51] LABS: BUN/Creatinine Ratio 12 (6-26); Blood Urea Nitrogen 5 mg/dL (8-23); Calcium 8.3 mg/dL (8.6-10.3); Carbon Dioxide 34 mEq/L (23-29); Chloride 102 mEq/L (98-107); Glucose 99 mg/dL (70-105); Magnesium 1.5 mg/dL (1.6-2.6); Osmolality,Calculated 289 (280-300); Phosphorous 4.6 mg/dL (2.7-4.5); Potassium 3.6 mEq/L (3.5-5.1); Sodium 141 mEq/L (136-145); eGFR For African Americans > 60 (> 60); eGFR For Non-African Americans > 60 (> 60)
[2022-01-25] MEDS: *HR* Heparin 5,000 UNIT/ML VIAL SQ SCH ×3 (06:14→21:32)
[2022-01-25] MEDS: Budesonide/Formoterol 80/4.5 1 PUFF INH IH SCH ×2 (07:40→21:34)
[2022-01-25] MEDS: Insulin LISPRO 300 UNITS/3 ML VIAL SUBQ SCH ×4 (08:06→21:32)
[2022-01-25] MEDS: Lactulose Oral Soln 20 GM/30 ML UDC PO SCH ×2 (08:11→21:32)
[2022-01-25] MEDS: Moxifloxacin OPTH Drops 3 ML BOTTLE BOTH EYES SCH ×3 (08:11→21:32)
[2022-01-25] MEDS: Furosemide 40 MG TABLET PO SCH (08:11)
[2022-01-25] MEDS: Magnesium Oxide 400 MG TABLET PO SCH (08:11)
[2022-01-25] MEDS: Tolterodine LA (24 HR) 4 MG CAP.ER.24H PO SCH (08:12)
[2022-01-25] MEDS: Spironolactone 25 MG TABLET PO SCH (08:12)
[2022-01-25] MEDS: Acetaminophen 325 MG TABLET PO SCH ×2 (08:12→21:33)
[2022-01-25] MEDS: *HR* LORazepam 1 MG TABLET PO PRN ×2 (09:37→23:11)
[2022-01-25] MEDS ORDERED: Magnesium Sulfate 1 GM/102 ML PIGGYBACK IVPB ONE (13:15)
[2022-01-25] MEDS: Melatonin 3 MG TABLET PO SCH (21:33)
[2022-01-25] MEDS: QUEtiapine Fumarate 25 MG TABLET PO SCH (21:33)
[2022-01-25] MEDS: risperiDONE 1 MG TABLET PO SCH (21:33)
[2022-01-25] MEDS: Ipratropium/Albuterol Neb 3 ML IH PRN (21:34)
[2022-01-25] MEDS: Insulin DETEMIR 100 UNIT/ML X5UNITS SUBQ SCH (21:41)
[2022-01-26] MEDS: Vancomycin 1,750 MG/517.5 ML IV.SOLN IVPB SCH (00:14)
[2022-01-26] MEDS: *HR* Heparin 5,000 UNIT/ML VIAL SQ SCH (05:15)
[2022-01-26 06:15] LABS: Basophils % 0.3 %; Eosinophils # 0.3 K/mcL (0.0-0.6); Eosinophils % 4.2 %; Hematocrit 27.5 % (35.3-44.9); Hemoglobin 8.5 g/dL (11.5-15.4); Lymphocytes # 1.1 K/mcL (0.6-4.6); Lymphocytes % 19.4 %; Mean Corpuscular HGB Conc 30.9 g/dL (31.6-35.5); Mean Corpuscular Hemoglobin 30.5 pg (28.0-33.3); Mean Corpuscular Volume 98.6 fL (83.0-100.0); Mean Platelet Volume 9.6 fL (9.4-12.4); Monocytes # 0.6 K/mcL (0.0-1.3); Monocytes % 9.5 %; Neutrophils # 3.9 K/mcL (1.6-8.9); Platelet Count 134 K/mcL (140-400); Red Blood Count 2.79 M/mcL (3.82-4.97); Red Cell Distribution Width 15.5 % (11.5-14.5); Segmented Neutrophils % 65.6 %; White Blood Count 5.9 K/mcL (4.3-11.1)
[2022-01-26 06:37] LABS: Platelet Estimate Normal (Normal)
[2022-01-26 06:49] VITALS: TEMP 98
[2022-01-26 07:29] LABS: BUN/Creatinine Ratio 11 (6-26); Blood Urea Nitrogen 4 mg/dL (8-23); Calcium 8.2 mg/dL (8.6-10.3); Carbon Dioxide 29 mEq/L (23-29); Chloride 96 mEq/L (98-107); Glucose 122 mg/dL (70-105); Magnesium 1.4 mg/dL (1.6-2.6); Osmolality,Calculated 274 (280-300); Phosphorous 3.7 mg/dL (2.7-4.5); Potassium 3.2 mEq/L (3.5-5.1); Sodium 133 mEq/L (136-145); eGFR For African Americans > 60 (> 60); eGFR For Non-African Americans > 60 (> 60)
[2022-01-26] MEDS: Ipratropium/Albuterol Neb 3 ML IH PRN (07:46)
[2022-01-26] MEDS: Budesonide/Formoterol 80/4.5 1 PUFF INH IH SCH (07:46)
[2022-01-26] MEDS ORDERED: Potassium Chloride Elixir 20 MEQ/15 ML UDC PO ONE (08:07)
[2022-01-26] MEDS: Insulin LISPRO 300 UNITS/3 ML VIAL SUBQ SCH (09:19)
[2022-01-26] MEDS: Spironolactone 25 MG TABLET PO SCH (09:39)
[2022-01-26] MEDS: Furosemide 40 MG TABLET PO SCH (09:39)
[2022-01-26] MEDS: Tolterodine LA (24 HR) 4 MG CAP.ER.24H PO SCH (09:39)
[2022-01-26] MEDS: Magnesium Oxide 400 MG TABLET PO SCH (09:39)
[2022-01-26] MEDS: Acetaminophen 325 MG TABLET PO SCH (09:39)
[2022-01-26] MEDS: Moxifloxacin OPTH Drops 3 ML BOTTLE BOTH EYES SCH (09:40)
[2022-01-26] MEDS: Lactulose Oral Soln 20 GM/30 ML UDC PO SCH (09:40)
[2022-01-26 10:52] LABS: Influenza A PCR Negative (Negative); Influenza B PCR Negative (Negative); Resp. Syncytial Virus PCR Negative (Negative)
[2022-01-26 11:00] LABS: SARS-CoV-2 by PCR (In House) Negative (Negative)
[2022-01-26 12:05] VITALS: BP 122/64; PULSE 85; O2SAT 94
== END 2022-01-26 14:09 | DRG 872 ==
LOC: 3BNU 02:07 → EMEROOARM 02:07 → SUATTDRO 04:13 → 3BNU 04:59 → SUATTDRO 01-22 08:26
PROVIDERS: ADMIT Family Medicine; ATTEND Internal Medicine

== ENCOUNTER 2022-05-18 00:49 | Inpatient (IN) ==
[2022-05-18 02:39] LABS: Bilirubin,Urine Negative (Negative); Blood,Urine Moderate (Negative); Clarity,Urine Slightly Cloudy (Clear); Color,Urine Yellow (Yellow); Glucose,Urine (UA) Normal (Normal); Ketones,Urine Negative (Negative); Leukocyte Esterase,Urine Small (Negative); Nitrite,Urine Negative (Negative); PH,Urine 5.5 pH Units (5.0-8.0); Protein,Urine Negative (Neg-Trace); Urobilinogen,Urine Normal (Normal)
[2022-05-18 02:41] LABS: Squamous Epithelial Cell,Urine Many per hpf (None-Few)
[2022-05-18 02:42] LABS: RBC,Urine 0-3 per hpf (0-3)
[2022-05-18 04:10] LABS: Basophils % 0.7 %; Eosinophils # 0.1 K/mcL (0.0-0.6); Eosinophils % 2.2 %; Hematocrit 31.9 % (35.3-44.9); Hemoglobin 10.4 g/dL (11.5-15.4); Immature Granulocytes % 0.4 % (0-4); Lymphocytes # 1.3 K/mcL (0.6-4.6); Lymphocytes % 23.9 %; Mean Corpuscular HGB Conc 32.6 g/dL (31.6-35.5); Mean Corpuscular Hemoglobin 31.2 pg (28.0-33.3); Mean Corpuscular Volume 95.8 fL (83.0-100.0); Monocytes # 0.5 K/mcL (0.0-1.3); Monocytes % 8.4 %; Neutrophils # 3.5 K/mcL (1.6-8.9); Platelet Count 168 K/mcL (140-400); Red Blood Count 3.33 M/mcL (3.82-4.97); Segmented Neutrophils % 64.4 %; White Blood Count 5.5 K/mcL (4.3-11.1)
[2022-05-18 04:21] LABS: INR 1.5; Prothrombin Time 16.8 Seconds (9.4-12.1)
[2022-05-18 04:23] LABS: Activated Partial Thrombo Time 29.5 Seconds (26.0-36.0)
[2022-05-18 04:28] LABS: Alanine Aminotransferase 28 Units/L (7-52); Albumin 3.4 g/dL (3.5-5.7); Albumin/Globulin Ratio 1.1 (1.1-2.2); Alkaline Phosphatase 111 Units/L (34-104); Aspartate Amino Transferase 39 Units/L (13-39); BUN/Creatinine Ratio 16 (6-26); Bilirubin,Direct 0.4 mg/dL (0.0-0.2); Bilirubin,Indirect 0.6 mg/dL (0.0-1.0); Blood Urea Nitrogen 11 mg/dL (8-23); Calcium 9.6 mg/dL (8.6-10.3); Carbon Dioxide 22 mEq/L (23-29); Chloride 103 mEq/L (98-107); Globulin 3.1 g/dL (2.4-3.5); Glucose 133 mg/dL (70-105); Osmolality,Calculated 279 (280-300); Sodium 134 mEq/L (136-145); Total Protein 6.5 g/dL (6.4-8.9); Troponin I 0.03 ng/mL (< 0.04)
[2022-05-18] MEDS ORDERED: cefTRIAXone 1,000 MG in 0.9 % Sodium Chloride 10 ML IVP ONE (04:33)
[2022-05-18] MEDS ORDERED: Haloperidol Lactate 5 MG/ML VIAL IVP ONE ×2 (13:11→23:19)
[2022-05-18] MEDS: Acetaminophen 325 MG TABLET PO PRN ×2 (13:19→21:49)
[2022-05-18] MEDS ORDERED: Naloxone 0.4 MG/ML INJ IVP PRN (14:57)
[2022-05-18] MEDS ORDERED: D5% in Water 1,000 ML IVC PRN (15:08)
[2022-05-18] MEDS ORDERED: *HR* Dextrose 50 % in Water (Syg) 50 ML SYRINGE IVP PRN (15:08)
[2022-05-18] MEDS ORDERED: Dextrose Gel 15 GM/37.5 ML TUBE PO PRN ×2 (15:08)
[2022-05-18] MEDS: Insulin LISPRO 300 UNITS/3 ML VIAL SUBQ SCH ×2 (17:15→21:22)
[2022-05-18] MEDS: *HR* Heparin 5,000 UNIT/ML VIAL SQ SCH (21:50)
[2022-05-19] MEDS: *HR* Heparin 5,000 UNIT/ML VIAL SQ SCH ×2 (05:28→14:54)
[2022-05-19] MEDS: Insulin LISPRO 300 UNITS/3 ML VIAL SUBQ SCH ×4 (07:50→22:10)
[2022-05-19 09:48] LABS: Basophils % 0.6 %; Eosinophils # 0.2 K/mcL (0.0-0.6); Eosinophils % 3.6 %; Hemoglobin 9.7 g/dL (11.5-15.4); Lymphocytes # 1.3 K/mcL (0.6-4.6); Lymphocytes % 28.7 %; Mean Corpuscular HGB Conc 32.3 g/dL (31.6-35.5); Mean Corpuscular Hemoglobin 30.9 pg (28.0-33.3); Mean Corpuscular Volume 95.5 fL (83.0-100.0); Monocytes # 0.4 K/mcL (0.0-1.3); Monocytes % 9.2 %; Neutrophils # 2.7 K/mcL (1.6-8.9); Platelet Count 168 K/mcL (140-400); Red Blood Count 3.14 M/mcL (3.82-4.97); Segmented Neutrophils % 57.9 %; White Blood Count 4.7 K/mcL (4.3-11.1)
[2022-05-19 10:08] LABS: BUN/Creatinine Ratio 14 (6-26); Blood Urea Nitrogen 9 mg/dL (8-23); Calcium 8.9 mg/dL (8.6-10.3); Carbon Dioxide 23 mEq/L (23-29); Chloride 105 mEq/L (98-107); Glucose 127 mg/dL (70-105); Osmolality,Calculated 282 (280-300); Potassium 3.9 mEq/L (3.5-5.1); Sodium 136 mEq/L (136-145)
[2022-05-19] MEDS: Acetaminophen 325 MG TABLET PO PRN ×2 (11:57→22:38)
[2022-05-19] MEDS ORDERED: hydrOXYzine pamoate 25 MG CAPSULE PO PRN (15:41)
[2022-05-19] MEDS ORDERED: QUEtiapine Fumarate 25 MG TABLET PO SCH (21:00)
[2022-05-19] MEDS: Apixaban 5 MG TABLET PO SCH (22:10)
[2022-05-19] MEDS: OLANZapine 5 MG TAB.RAPDIS PO SCH (22:10)
[2022-05-19] MEDS: Nystatin POWDER 30 GM BOTTLE TP SCH (22:41)
[2022-05-20] MEDS: Budesonide/Formoterol 80/4.5 1 PUFF INH IH SCH ×3 (00:12→22:35)
[2022-05-20] MEDS: Insulin LISPRO 300 UNITS/3 ML VIAL SUBQ SCH ×4 (08:35→20:44)
[2022-05-20] MEDS: Apixaban 5 MG TABLET PO SCH ×2 (09:13→20:43)
[2022-05-20] MEDS: Acetaminophen 325 MG TABLET PO PRN ×2 (09:13→21:28)
[2022-05-20] MEDS: Spironolactone 25 MG TABLET PO SCH (09:13)
[2022-05-20] MEDS: Nystatin POWDER 30 GM BOTTLE TP SCH ×2 (09:13→20:44)
[2022-05-20] MEDS: Thiamine (B-1) 100 MG TABLET PO SCH (09:13)
[2022-05-20] MEDS: Aspirin Enteric Coated 81 MG Tablet PO SCH (09:13)
[2022-05-20] MEDS: Lactulose Oral Soln 20 GM/30 ML UDC PO SCH ×3 (11:59→20:43)
[2022-05-20 15:07] LABS: Troponin I 0.03 ng/mL (< 0.04)
[2022-05-20] MEDS: OLANZapine 5 MG TAB.RAPDIS PO SCH (20:43)
[2022-05-21] MEDS ORDERED: Haloperidol Lactate 5 MG/ML VIAL IVP ONE (00:37)
[2022-05-21] MEDS ORDERED: Haloperidol Lactate 5 MG/ML VIAL IM ONE ×2 (01:44→03:59)
[2022-05-21 02:10] LABS: Basophils % 0.5 %; Eosinophils # 0.2 K/mcL (0.0-0.6); Eosinophils % 2.6 %; Hematocrit 29.6 % (35.3-44.9); Hemoglobin 9.5 g/dL (11.5-15.4); Immature Granulocytes % 0.2 % (0-4); Lymphocytes # 1.2 K/mcL (0.6-4.6); Lymphocytes % 21.6 %; Mean Corpuscular HGB Conc 32.1 g/dL (31.6-35.5); Mean Corpuscular Hemoglobin 30.8 pg (28.0-33.3); Mean Corpuscular Volume 96.1 fL (83.0-100.0); Mean Platelet Volume 10.1 fL (9.4-12.4); Monocytes # 0.4 K/mcL (0.0-1.3); Monocytes % 7.3 %; Neutrophils # 3.9 K/mcL (1.6-8.9); Platelet Count 154 K/mcL (140-400); Red Blood Count 3.08 M/mcL (3.82-4.97); Red Cell Distribution Width 16.4 % (11.5-14.5); Segmented Neutrophils % 67.8 %; White Blood Count 5.7 K/mcL (4.3-11.1)
[2022-05-21 02:39] LABS: Alanine Aminotransferase 23 Units/L (7-52); Albumin 3.2 g/dL (3.5-5.7); Alkaline Phosphatase 91 Units/L (34-104); Aspartate Amino Transferase 38 Units/L (13-39); BUN/Creatinine Ratio 14 (6-26); Bilirubin,Total 0.8 mg/dL (0.3-1.0); Blood Urea Nitrogen 7 mg/dL (8-23); Calcium 9.1 mg/dL (8.6-10.3); Carbon Dioxide 20 mEq/L (23-29); Chloride 105 mEq/L (98-107); Globulin 3.1 g/dL (2.4-3.5); Glucose 135 mg/dL (70-105); Osmolality,Calculated 278 (280-300); Potassium 3.9 mEq/L (3.5-5.1); Sodium 134 mEq/L (136-145); Total Protein 6.3 g/dL (6.4-8.9)
[2022-05-21] MEDS ORDERED: *HR* LORazepam 2 MG/ML VIAL IM ONE (03:59)
[2022-05-21 07:52] VITALS: PULSE 102; TEMP 98.2; O2SAT 92
[2022-05-21] MEDS: Budesonide/Formoterol 80/4.5 1 PUFF INH IH SCH ×2 (08:13→20:15)
[2022-05-21] MEDS: Insulin LISPRO 300 UNITS/3 ML VIAL SUBQ SCH ×3 (08:52→17:28)
[2022-05-21] MEDS ORDERED: Magnesium Oxide 400 MG TABLET PO SCH (09:00)
[2022-05-21] MEDS ORDERED: Furosemide 40 MG TABLET PO SCH (09:00)
[2022-05-21] MEDS ORDERED: Omega-3 Acid Ethyl Esters [Lovaza] 1 GM Capsule PO SCH (09:00)
[2022-05-21] MEDS: Spironolactone 25 MG TABLET PO SCH (09:41)
[2022-05-21] MEDS: Aspirin Enteric Coated 81 MG Tablet PO SCH (09:41)
[2022-05-21] MEDS: Apixaban 5 MG TABLET PO SCH (09:41)
[2022-05-21] MEDS: Thiamine (B-1) 100 MG TABLET PO SCH (09:41)
[2022-05-21] MEDS: Nystatin POWDER 30 GM BOTTLE TP SCH (09:41)
[2022-05-21] MEDS: Lactulose Oral Soln 20 GM/30 ML UDC PO SCH ×3 (09:41→17:28)
[2022-05-21] MEDS: Nitrofurantoin (BID) 100 MG CAPSULE PO SCH ×2 (09:44→17:28)
[2022-05-21] MEDS: Acetaminophen 325 MG TABLET PO PRN (12:15)
[2022-05-21 12:27] VITALS: BP 127/69
[2022-05-21 14:27] LABS: Adenovirus Not Detected (Not Detect); Bordetella Pertussis Not Detected (Not Detect); Chlamydophila pneumoniae Not Detected (Not Detect); Coronavirus 229E Not Detected (Not Detect); Coronavirus HKU1 Not Detected (Not Detect); Coronavirus NL63 Not Detected (Not Detect); Coronavirus OC43 Not Detected (Not Detect); Human Metapneumovirus Not Detected (Not Detect); Human Rhinovirus/Enterovirus Not Detected (Not Detect); Influenza A Subtype 2009 H1 Not Detected (Not Detect); Influenza B Not Detected (Not Detect); Mycoplasma pneumoniae Not Detected (Not Detect); Parainfluenza Virus 1 Not Detected (Not Detect); Parainfluenza Virus 2 Not Detected (Not Detect); Parainfluenza Virus 3 Not Detected (Not Detect); Parainfluenza Virus 4 Not Detected (Not Detect); Respiratory Syncytial Virus Not Detected (Not Detect); SARS-CoV-2 Not Detected (Not Detect)
== END 2022-05-21 20:25 | DRG 884 ==
LOC: EMEROOARM 00:49 → 3ANU 00:49
PROVIDERS: ADMIT Internal Medicine; ATTEND Internal Medicine

== ENCOUNTER 2022-06-25 01:24 | Inpatient (IN) ==
[2022-06-26] MEDS ORDERED: Mag Hydrox/Al Hydrox/Simeth 30 ML UDC PO PRN (04:34)
[2022-06-26] MEDS ORDERED: Naloxone 0.4 MG/ML INJ IVP PRN (04:34)
[2022-06-26] MEDS ORDERED: Dextrose Gel 15 GM/37.5 ML TUBE PO PRN ×2 (04:34)
[2022-06-26] MEDS ORDERED: *HR* Dextrose 50 % in Water (Syg) 50 ML SYRINGE IVP PRN (04:34)
[2022-06-26] MEDS ORDERED: Ondansetron 4 MG/2 ML VIAL IVP PRN (04:34)
[2022-06-26] MEDS ORDERED: D5% in Water 1,000 ML IVC PRN (04:34)
[2022-06-26] MEDS ORDERED: Iopamidol - 370 500 ML MLS IVP ONE (04:34)
[2022-06-26] MEDS ORDERED: cefTRIAXone 1,000 MG in Water for inj. (sterile) 10 ML IVP SCH (05:18)
[2022-06-26] MEDS ORDERED: hydrOXYzine pamoate 25 MG CAPSULE PO PRN (05:27)
[2022-06-26] MEDS ORDERED: Octreotide 400 MCG in 0.9 % Sodium Chloride 100 ML IVC SCH (05:45)
[2022-06-26 05:52] LABS: Basophils % 0.8 %; Eosinophils % 1.3 %; Hemoglobin 7.7 g/dL (11.5-15.4); Immature Granulocytes % 0.5 % (0-4); Mean Platelet Volume 9.1 fL (9.4-12.4)
[2022-06-26 05:54] LABS: Eosinophils # 0.1 K/mcL (0.0-0.6); Immature Platelets 1.3 % (1.1-6.1); Lymphocytes # 0.5 K/mcL (0.6-4.6); Lymphocytes % 13.8 %; Mean Corpuscular HGB Conc 30.8 g/dL (31.6-35.5); Mean Corpuscular Hemoglobin 32.8 pg (28.0-33.3); Mean Corpuscular Volume 106.4 fL (83.0-100.0); Monocytes % 11.7 %; Red Blood Count 2.35 M/mcL (3.82-4.97); Segmented Neutrophils % 71.9 %; White Blood Count 3.8 K/mcL (4.3-11.1)
[2022-06-26 06:11] LABS: Monocytes # 0.4 K/mcL (0.0-1.3); Neutrophils # 2.7 K/mcL (1.6-8.9); Platelet Count 57 K/mcL (140-400)
[2022-06-26 06:17] LABS: Alanine Aminotransferase 11 Units/L (7-52); Albumin 2.4 g/dL (3.5-5.7); Albumin/Globulin Ratio 1.2 (1.1-2.2); Alkaline Phosphatase 61 Units/L (34-104); Aspartate Amino Transferase 37 Units/L (13-39); BUN/Creatinine Ratio 22 (6-26); Bilirubin,Direct 0.4 mg/dL (0.0-0.2); Bilirubin,Indirect 1.2 mg/dL (0.0-1.0); Bilirubin,Total 1.6 mg/dL (0.3-1.0); Blood Urea Nitrogen 15 mg/dL (8-23); Calcium 7.3 mg/dL (8.6-10.3); Carbon Dioxide 19 mEq/L (23-29); Chloride 117 mEq/L (98-107); Glucose 81 mg/dL (70-105); Magnesium 1.6 mg/dL (1.6-2.6); Osmolality,Calculated 292 (280-300); Phosphorous 4.1 mg/dL (2.7-4.5); Potassium 4.1 mEq/L (3.5-5.1); Sodium 141 mEq/L (136-145); Total Protein 4.4 g/dL (6.4-8.9); Troponin I < 0.03 ng/mL (< 0.04)
[2022-06-26] MEDS: Pantoprazole 40 MG in 0.9 % Sodium Chloride Mini Bag 100 ML IVC SCH (06:28)
[2022-06-26] MEDS: Insulin LISPRO 300 UNITS/3 ML VIAL SUBQ SCH ×3 (06:32→18:00)
[2022-06-26] MEDS ORDERED: Lidocaine -MPF 2% 2 ML VIAL ONE (07:48)
[2022-06-26] MEDS ORDERED: *HR* Propofol 200 MG/20 ML VIAL IVP ONE ×2 (07:50→07:53)
[2022-06-26 10:21] LABS: INR 1.3
[2022-06-26 10:23] LABS: Activated Partial Thrombo Time 28.9 Seconds (26.0-36.0)
[2022-06-26 15:12] LABS: Hemoglobin 7.6 g/dL (11.5-15.4); Red Cell Distribution Width 21.1 % (11.5-14.5)
[2022-06-26 15:14] LABS: Basophils % 0.5 %; Eosinophils # 0.1 K/mcL (0.0-0.6); Eosinophils % 1.3 %; Immature Granulocytes % 0.3 % (0-4); Immature Platelets 0.7 % (1.1-6.1); Lymphocytes # 0.4 K/mcL (0.6-4.6); Mean Corpuscular HGB Conc 30.4 g/dL (31.6-35.5); Mean Corpuscular Hemoglobin 32.2 pg (28.0-33.3); Mean Corpuscular Volume 105.9 fL (83.0-100.0); Mean Platelet Volume 9.4 fL (9.4-12.4); Monocytes # 0.5 K/mcL (0.0-1.3); Monocytes % 12.8 %; Neutrophils # 2.9 K/mcL (1.6-8.9); Red Blood Count 2.36 M/mcL (3.82-4.97); Segmented Neutrophils % 74.1 %; White Blood Count 3.9 K/mcL (4.3-11.1)
[2022-06-26 15:15] LABS: Platelet Count 58 K/mcL (140-400)
[2022-06-26] MEDS ORDERED: carvediloL 6.25 MG TABLET PO SCH (18:00)
[2022-06-26] MEDS ORDERED: QUEtiapine Fumarate 25 MG TABLET PO SCH (21:15)
[2022-06-26] MEDS ORDERED: OLANZapine 5 MG TAB.RAPDIS PO SCH (21:15)
[2022-06-26] MEDS: Divalproex (12 HR) 500 MG TABLET PO SCH (22:08)
[2022-06-27 00:37] LABS: Hemoglobin 6.9 g/dL (11.5-15.4); Immature Granulocytes % 0.6 % (0-4)
[2022-06-27 00:39] LABS: Basophils % 0.6 %; Eosinophils # 0.1 K/mcL (0.0-0.6); Eosinophils % 1.6 %; Hematocrit 22.3 % (35.3-44.9); Immature Platelets 0.8 % (1.1-6.1); Lymphocytes # 0.4 K/mcL (0.6-4.6); Lymphocytes % 13.3 %; Mean Corpuscular HGB Conc 30.9 g/dL (31.6-35.5); Mean Corpuscular Hemoglobin 32.7 pg (28.0-33.3); Mean Corpuscular Volume 105.7 fL (83.0-100.0); Monocytes # 0.4 K/mcL (0.0-1.3); Monocytes % 14.3 %; Red Blood Count 2.11 M/mcL (3.82-4.97); Red Cell Distribution Width 20.7 % (11.5-14.5); Segmented Neutrophils % 69.6 %; White Blood Count 3.1 K/mcL (4.3-11.1)
[2022-06-27 00:41] LABS: Neutrophils # 2.2 K/mcL (1.6-8.9); Platelet Count 48 K/mcL (140-400)
[2022-06-27 05:52] LABS: Mean Corpuscular Volume 106.3 fL (83.0-100.0); Red Cell Distribution Width 20.7 % (11.5-14.5)
[2022-06-27 05:54] LABS: Eosinophils # 0.1 K/mcL (0.0-0.6); Eosinophils % 2.9 %; Hematocrit 23.7 % (35.3-44.9); Hemoglobin 7.3 g/dL (11.5-15.4); Immature Granulocytes % 0.6 % (0-4); Immature Platelets 1.1 % (1.1-6.1); Lymphocytes # 0.6 K/mcL (0.6-4.6); Lymphocytes % 17.8 %; Mean Corpuscular HGB Conc 30.8 g/dL (31.6-35.5); Mean Corpuscular Hemoglobin 32.7 pg (28.0-33.3); Mean Platelet Volume 9.3 fL (9.4-12.4); Monocytes # 0.5 K/mcL (0.0-1.3); Monocytes % 15.2 %; Platelet Count 49 K/mcL (140-400); Red Blood Count 2.23 M/mcL (3.82-4.97); Segmented Neutrophils % 62.5 %; White Blood Count 3.2 K/mcL (4.3-11.1)
[2022-06-27 06:02] LABS: INR 1.3; Prothrombin Time 14.9 Seconds (9.4-12.1)
[2022-06-27 06:04] LABS: Activated Partial Thrombo Time 27.1 Seconds (26.0-36.0)
[2022-06-27 06:12] LABS: BUN/Creatinine Ratio 25 (6-26); Blood Urea Nitrogen 15 mg/dL (8-23); Calcium 7.5 mg/dL (8.6-10.3); Carbon Dioxide 24 mEq/L (23-29); Chloride 114 mEq/L (98-107); Glucose 93 mg/dL (70-105); Magnesium 1.7 mg/dL (1.6-2.6); Osmolality,Calculated 291 (280-300); Potassium 4.2 mEq/L (3.5-5.1); Sodium 140 mEq/L (136-145)
[2022-06-27] MEDS ORDERED: Lurasidone 20 MG TABLET PO SCH (08:00)
[2022-06-27 08:33] LABS: Hematocrit 24.7 % (35.3-44.9); Hemoglobin 7.7 g/dL (11.5-15.4)
[2022-06-27] MEDS ORDERED: FLUoxetine HCl 10 MG CAPSULE PO SCH (09:00)
[2022-06-27] MEDS ORDERED: cefTRIAXone 1,000 MG in 0.9 % Sodium Chloride 10 ML IVP SCH (09:00)
[2022-06-27] MEDS ORDERED: Lactulose Oral Soln 20 GM/30 ML UDC PO SCH (09:00)
[2022-06-27] MEDS ORDERED: carvediloL 6.25 MG TABLET PO SCH (09:00)
[2022-06-27] MEDS: Divalproex (12 HR) 500 MG TABLET PO SCH ×2 (10:07→19:49)
[2022-06-27 14:15] LABS: Hematocrit 23.3 % (35.3-44.9); Hemoglobin 7.1 g/dL (11.5-15.4)
[2022-06-27] MEDS ORDERED: *HR* Dextrose 50 % in Water (Syg) 50 ML SYRINGE IVP PRN (15:07)
[2022-06-27] MEDS ORDERED: Ondansetron 4 MG/2 ML VIAL IVP PRN (15:07)
[2022-06-27] MEDS ORDERED: Naloxone 0.4 MG/ML INJ IVP PRN (15:07)
[2022-06-27] MEDS ORDERED: hydrOXYzine pamoate 25 MG CAPSULE PO PRN (15:07)
[2022-06-27] MEDS ORDERED: Dextrose Gel 15 GM/37.5 ML TUBE PO PRN ×2 (15:07)
[2022-06-27] MEDS ORDERED: D5% in Water 1,000 ML IVC PRN (15:07)
[2022-06-27] MEDS ORDERED: Mag Hydrox/Al Hydrox/Simeth 30 ML UDC PO PRN (15:07)
[2022-06-27] MEDS: carvediloL 6.25 MG TABLET PO SCH (17:03)
[2022-06-27] MEDS: Insulin LISPRO 300 UNITS/3 ML VIAL SUBQ SCH ×4 (17:04→23:05)
[2022-06-27] MEDS: Pantoprazole 40 MG in 0.9 % Sodium Chloride Mini Bag 100 ML IVC SCH (19:28)
[2022-06-27] MEDS: QUEtiapine Fumarate 25 MG TABLET PO SCH (19:49)
[2022-06-27] MEDS: Lactulose Oral Soln 20 GM/30 ML UDC PO SCH (19:49)
[2022-06-27] MEDS: OLANZapine 5 MG TAB.RAPDIS PO SCH (19:49)
[2022-06-27] MEDS: Nystatin POWDER 30 GM BOTTLE TP SCH (19:50)
[2022-06-27] MEDS ORDERED: Apixaban 5 MG TABLET PO SCH ×2 (21:00)
[2022-06-27] MEDS ORDERED: Nystatin POWDER 30 GM BOTTLE TP SCH (21:00)
[2022-06-27] MEDS ORDERED: Budesonide/Formoterol 80/4.5 1 PUFF INH IH SCH (22:00)
[2022-06-27 22:06] LABS: Hematocrit 21.7 % (35.3-44.9); Hemoglobin 6.8 g/dL (11.5-15.4)
[2022-06-27] MEDS: Budesonide/Formoterol 80/4.5 1 PUFF INH IH SCH (22:46)
[2022-06-28] MEDS ORDERED: Albumin 25% 25gram/100mL 25 GM/100 ML IV.SOLN IVPB ONE
[2022-06-28] MEDS ORDERED: 0.9 % Sodium Chloride 500 ML IVC ONE ×2 (00:02→02:24)
[2022-06-28] MEDS ORDERED: 0.9 % Sodium Chloride 250 ML ONE (05:57)
[2022-06-28] MEDS: Insulin LISPRO 300 UNITS/3 ML VIAL SUBQ SCH ×3 (07:37→18:14)
[2022-06-28] MEDS: Budesonide/Formoterol 80/4.5 1 PUFF INH IH SCH ×2 (07:43→19:53)
[2022-06-28] MEDS ORDERED: Lurasidone 20 MG TABLET PO SCH (08:00)
[2022-06-28] MEDS: carvediloL 6.25 MG TABLET PO SCH (08:51)
[2022-06-28] MEDS ORDERED: Spironolactone 25 MG TABLET PO SCH ×2 (09:00)
[2022-06-28] MEDS ORDERED: Zinc Sulfate 220 MG CAPSULE PO SCH (09:00)
[2022-06-28] MEDS ORDERED: FLUoxetine HCl 10 MG CAPSULE PO SCH (09:00)
[2022-06-28] MEDS ORDERED: cefTRIAXone 2,000 MG in 0.9 % Sodium Chloride 20 ML IVP SCH (09:00)
[2022-06-28] MEDS: Divalproex (12 HR) 500 MG TABLET PO SCH ×2 (09:11→21:00)
[2022-06-28] MEDS: Zinc Sulfate 220 MG CAPSULE PO SCH ×2 (09:12→12:03)
[2022-06-28] MEDS: Nystatin POWDER 30 GM BOTTLE TP SCH ×2 (09:12→21:00)
[2022-06-28] MEDS: Lactulose Oral Soln 20 GM/30 ML UDC PO SCH ×2 (09:12→20:59)
[2022-06-28] MEDS: Albumin 25% 25gram/100mL 25 GM/100 ML IV.SOLN IVPB SCH ×2 (10:44→15:38)
[2022-06-28] MEDS ORDERED: carvediloL 6.25 MG TABLET PO SCH (12:50)
[2022-06-28] MEDS ORDERED: Acetaminophen 325 MG TABLET PO PRN (13:59)
[2022-06-28 14:58] LABS: Basophils % 0.7 %; Eosinophils % 2.2 %; Hematocrit 23.7 % (35.3-44.9); Hemoglobin 7.6 g/dL (11.5-15.4)
[2022-06-28 15:00] LABS: Eosinophils # 0.1 K/mcL (0.0-0.6); Hematocrit 24.5 % (35.3-44.9); Hemoglobin 7.7 g/dL (11.5-15.4); Immature Granulocytes % 0.7 % (0-4); Immature Platelets 0.9 % (1.1-6.1); Lymphocytes # 0.6 K/mcL (0.6-4.6); Lymphocytes % 22.5 %; Mean Corpuscular HGB Conc 31.4 g/dL (31.6-35.5); Mean Corpuscular Hemoglobin 31.7 pg (28.0-33.3); Mean Corpuscular Volume 100.8 fL (83.0-100.0); Mean Platelet Volume 9.7 fL (9.4-12.4); Monocytes # 0.5 K/mcL (0.0-1.3); Monocytes % 16.7 %; Neutrophils # 1.6 K/mcL (1.6-8.9); Red Blood Count 2.43 M/mcL (3.82-4.97); Red Cell Distribution Width 22.1 % (11.5-14.5); Segmented Neutrophils % 57.2 %; White Blood Count 2.8 K/mcL (4.3-11.1)
[2022-06-28 15:10] LABS: Platelet Count 40 K/mcL (140-400)
[2022-06-28 18:09] VITALS: O2SAT 98
[2022-06-28 20:55] VITALS: TEMP 97.8
[2022-06-28] MEDS: OLANZapine 5 MG TAB.RAPDIS PO SCH (20:59)
[2022-06-28] MEDS: QUEtiapine Fumarate 25 MG TABLET PO SCH (20:59)
[2022-06-28 21:10] VITALS: BP 100/69; PULSE 77
[2022-06-29] MEDS ORDERED: Spironolactone 25 MG TABLET PO SCH (09:00)
== END 2022-06-28 23:59 | disposition other institution (70) | DRG 811 ==
LOC: ICNU → SUATTDRO 06-26 05:32 → 2NNU 06-27 07:28
PROVIDERS: ADMIT Internal Medicine; ATTEND Internal Medicine